=== PATIENT | female | born 1935 | race Caucasian/White ===

== ENCOUNTER 2017-05-17 10:07 | Emergency (ER) | payer MEDICARE, BC ==
[2017-05-17 10:45] VITALS: BP 81/55
--- NOTE | 2017-05-17 11:44 | UC ---
Ear Complaint HPI - HPI Summary HPI Summary: INTERMITTENT HEARING DEFICIT LEFT EAR FOR SEVERAL WEEKS. TODAY HEARING LOSS IS NOT REMITTING. FEELS LIKE SHE IS "UNDER WATER". NO PAIN. NO FEVER. NO URI SX. NOT DIZZY. - History of Current Complaint Chief Complaint: UCEar Stated Complaint: EAR COMPLAINT Time Seen by Provider: 05/17/17 11:29 Hx Obtained From: Patient Onset/Duration: Gradual Onset, Lasting Weeks, Still Present Severity Initially: Mild Severity Currently: Mild Pain Intensity: 0 Pain Scale Used: 0-10 Numeric Aggravating Factors: Nothing Alleviating Factors: Nothing Associated Signs/Symptoms: Positive: Hearing Loss. Negative: Discharge, Foreign Body Sensation, Trauma to Ear, Swelling @, URI Symptoms - Allergies/Home Medications Allergies/Adverse Reactions: Allergies Allergy/AdvReac Type Severity Reaction Status Date / Time No Known Allergies Allergy Verified 07/28/16 16:40 PMH/Surg Hx/FS Hx/Imm Hx Endocrine History: Hypothyroidism Cardiovascular History: Hypertension, Atrial Fibrillation - Surgical History Surgical History: Yes Surgery Procedure, Year, and Place: Tubal Ligation, Bilateral Cataracts surgery , Gallbladder. - Family History Known Family History: Positive: Hypertension - Social History Alcohol Use: None Substance Use Type: None Smoking Status (MU): Former Smoker - Immunization History Most Recent Influenza Vaccination: Review of Systems Constitutional: Negative ENT: Other - HEARING LOSS LEFT EAR Respiratory: Negative Cardiovascular: Negative Gastrointestinal: Negative Neurological: Negative All Other Systems Reviewed And Are Negative: Yes Physical Exam Triage Information Reviewed: Yes Appearance: Well-Appearing, No Pain Distress, Well-Nourished Vital Signs: Initial Vital Signs Temp 97.4 F 05/17/17 10:37 Pulse 69 05/17/17 10:37 Resp 18 05/17/17 10:37 BP 81/55 05/17/17 10:37 Pulse Ox 99 05/17/17 10:37 Vital Signs Reviewed: Yes Eyes: Positive: Conjunctiva Clear ENT: Positive: Pharynx normal, TMs normal, Other: - NO OBSTRUCTION IN EITHER EAC. HEARING LOSS NOTED LEFT SIDE TO FINGER RUB Neck: Positive: Supple Respiratory: Positive: No respiratory distress, No accessory muscle use Cardiovascular: Positive: Pulses Normal Abdomen Description: Positive: Soft Musculoskeletal: Positive: No Edema Neurological: Positive: Alert Psychological: Positive: Age Appropriate Behavior Skin: Negative: rashes Ear Complaint Course/Dx - Differential Dx/Diagnosis Provider Diagnoses: LEFT EAR HEARING LOSS Discharge - Discharge Plan Condition: Stable Disposition: HOME Patient Education Materials: Hearing Loss (ED) Referrals: Zaire Rowan MD [Medical Doctor] - (YOU HAVE AN APPT FOR A HEARING TEST AT 1 :15PM TOMORROW (05/18/17) FOLLOWED BY AN APPT WITH DR. ROWAN WITH ENT.) Day Caro MD [Primary Care Provider] - If Needed Additional Instructions: NO WAX, FOREIGN BODY OR OTHER OBSTRUCTION SEEN IN YOUR LEFT EAR. WE HAVE MADE AN APPT WITH ENT FOR YOU TOMORROW. PLEASE KEEP THIS APPT FOR FURTHER EVALUATION.
== END 2017-05-17 11:50 | disposition home or self-care (01) ==
LOC: UCEAST 10:07
DX: H91.92 Unspecified hearing loss, left ear (principal); I48.91 Unspecified atrial fibrillation
CPT/HCPCS: 99211; G0463

== ENCOUNTER 2017-06-08 11:36 | Inpatient (IN) | payer BC, MEDICARE ==
[2017-06-08] MEDS ORDERED: Pantoprazole IV* 40 MG IV ONE (12:54)
[2017-06-08] MEDS ORDERED: NS 0.9% 1000 ML* 1,000 ML IV SCH (13:00)
[2017-06-08 14:18] LABS: Hematocrit 24 % (35-47); Hemoglobin 7.4 g/dl (12.0-16.0); Mean Corpuscular HGB Conc 32 g/dl (31-36); Mean Corpuscular Hemoglobin 28 pg (27-31); Mean Corpuscular Volume 88 fL (80-97); Mean Platelet Volume 10 um3 (7.4-10.4); Red Blood Count 2.69 10^6/ul (4.0-5.4); Red Cell Distribution Width 14 % (10.5-15); White Blood Count 7.4 10^3/ul (3.5-10.8)
[2017-06-08 14:34] LABS: ALT 9 U/L (7-52); AST 15 U/L (13-39); Albumin 3.6 g/dL (3.2-5.2); Alkaline Phosphatase 62 U/L (34-104); Anion Gap 6 mmol/L (2-11); BUN/Creatinine Ratio 11.2 (8-20); Blood Urea Nitrogen 10 mg/dL (6-24); C Reactive Protein 4.02 mg/L (< 5.00); CO2 Carbon Dioxide 26 mmol/L (22-32); Calcium 8.9 mg/dL (8.6-10.3); Chloride 104 mmol/L (101-111); EGFR African American 78.1 (>60); EGFR Non-African American 60.7 (>60); Globulin 2.9 g/dL (2-4); Glucose 112 mg/dL (70-100); Lipase < 10 U/L (11.0-82.0); Potassium 3.8 mmol/L (3.5-5.0); Sodium 136 mmol/L (133-145); Total Protein 6.5 g/dL (6.4-8.9)
[2017-06-08] MEDS ORDERED: Phytonadione Oral Solution* 5 MG/25 ML UDC PO ONE (15:44)
--- NOTE | 2017-06-08 15:58 | ED ---
Shekhar Wright Angela, scribed for Bob Castillo MD on 06/08/17 at 1259 . GI/ HPI - HPI Summary HPI Summary: 82 y/o female presents to the ED c/o diarrhea, bloody stools, intermittent L leg pain since this morning at 8:00 AM. Pt reports she was feeling well yesterday and awoke today with diarrhea, she was on her way to [place] to visit her friend. Pt notes associated bloated abdomen but no pain. She states she has had approximately 10 bowel movements today, described as very loose black stools with bright red blood. Pt is unsure if the blood is separate from her stools. Pt denies nausea, vomiting, chest pain, SOB, fever, chills, light- headedness. Pt denies any PMHx of GI bleed but endorses PMHx of blood clot in lungs and heart burn. - History of Current Complaint Chief Complaint: EDGIBleed Time Seen by Provider: 06/08/17 12:42 Stated Complaint: DIARRHEA,POSS VAG BLEEDING Hx Obtained From: Patient Onset/Duration: Started Hours Ago Timing: Constant Vaginal Bleeding Description: Bright Red Pain Intensity: 6 Associated Signs and Symptoms: Positive: Bright Red Blood w/Stool, Blood w/Stool , Diarrhea, Other: - Leg pain. Negative: Nausea, Vomiting, Fever, Lightheadedness Aggravating Factor(s): Nothing Alleviating Factor(s): Nothing - Allergy/Home Medications Allergies/Adverse Reactions: Allergies Allergy/AdvReac Type Severity Reaction Status Date / Time No Known Allergies Allergy Verified 07/28/16 16:40 PMH/Surg Hx/FS Hx/Imm Hx Endocrine/Hematology History: Reports: Hx Thyroid Disease Denies: Hx Diabetes Cardiovascular History: Reports: Hx Hypertension - on meds Denies: Hx Congestive Heart Failure Respiratory History: Reports: Hx Pulmonary Embolism Denies: Hx Asthma, Hx Chronic Obstructive Pulmonary Disease (COPD) GI History: Denies: Hx Ulcer Musculoskeletal History: Denies: Hx Scoliosis Neurological History: Denies: Hx Headaches - Surgical History Surgery Procedure, Year, and Place: Tubal Ligation, Bilateral Cataracts surgery , Gallbladder. Infectious Disease History: No Infectious Disease History: Denies: Hx Hepatitis, Hx Human Immunodeficiency Virus (HIV), History Other Infectious Disease, Traveled Outside the [place] in Last 30 Days - Family History Known Family History: Positive: Hypertension - Social History Alcohol Use: None Hx Substance Use: No Substance Use Type: Reports: None Hx Tobacco Use: Yes Smoking Status (MU): Former Smoker Review of Systems Negative: Fever, Chills Negative: Chest Pain Negative: Shortness Of Breath Positive: Abdominal Pain - Bloating of abdomen, Diarrhea, Other - Bloody stools , dark loose stools. Negative: Vomiting, Nausea Neurological: Other - NEGATIVE: light-headedness All Other Systems Reviewed And Are Negative: Yes Physical Exam - Summary Physical Exam Summary: General: well-appearing, no pain distress Skin: warm, color reflects adequate perfusion, dry Head: normal Eyes: EOMI, EAGLE ENT: normal Neck: supple, nontender Respiratory: CTA, breath sounds present Cardiovascular: RRR Abdomen: soft, nontender Bowel: present Musculoskeletal: normal, strength/ROM intact Neurological: normal, sensory/motor intact, A&O x3 Psychological: affect/mood appropriate Triage Information Reviewed: Yes Vital Signs On Initial Exam: Initial Vitals Temp Pulse Resp BP Pulse Ox 97.4 F 76 17 129/99 96 06/08/17 12:05 06/08/17 12:05 06/08/17 12:05 06/08/17 12:05 06/08/17 12:05 Vital Signs Reviewed: Yes - Alirio Coma Scale Coma Scale Total: 15 Diagnostics - Vital Signs Vital Signs Temp Pulse Resp BP Pulse Ox 06/08/17 12:23 71 97 06/08/17 12:17 98.6 F 73 22 142/65 97 06/08/17 12:05 97.4 F 76 17 129/99 96 - Laboratory Lab Results: Lab Results 06/08/17 06/08/17 06/08/17 Range/Units 13:22 13:22 13:22 WBC 7.4 (3.5-10.8) 10^3/ul RBC 2.69 L (4.0-5.4) 10^6/ul Hgb 7.4 L (12.0-16.0) g/dl Hct 24 L (35-47) % MCV 88 (80-97) fL MCH 28 (27-31) pg MCHC 32 (31-36) g/dl RDW 14 (10.5-15) % Plt Count 238 (150-450) 10^3/ul MPV 10 (7.4-10.4) um3 Neut % (Auto) 66.6 (38-83) % Lymph % (Auto) 22.5 L (25-47) % Hays % (Auto) 8.1 (1-9) % Eos % (Auto) 1.5 (0-6) % Baso % (Auto) 1.3 (0-2) % Absolute Neuts (auto) 4.9 (1.5-7.7) 10^3/ul Absolute Lymphs (auto) 1.7 (1.0-4.8) 10^3/ul Absolute Monos (auto) 0.6 (0-0.8) 10^3/ul Absolute Eos (auto) 0.1 (0-0.6) 10^3/ul Absolute Basos (auto) 0.1 (0-0.2) 10^3/ul Absolute Nucleated RBC 0 10^3/ul Nucleated RBC % 0 Sodium 136 (133-145) mmol/L Potassium 3.8 (3.5-5.0) mmol/L Chloride 104 (101-111) mmol/L Carbon Dioxide 26 (22-32) mmol/L Anion Gap 6 (2-11) mmol/L BUN 10 (6-24) mg/dL Creatinine 0.89 (0.51-0.95) mg/dL Est GFR ( Amer) 78.1 (>60) Est GFR (Non-Af Amer) 60.7 (>60) BUN/Creatinine Ratio 11.2 (8-20) Glucose 112 H (70-100) mg/dL Lactic Acid 1.0 (0.5-2.0) mmol/L Calcium 8.9 (8.6-10.3) mg/dL Total Bilirubin 0.30 (0.2-1.0) mg/dL AST 15 (13-39) U/L ALT 9 (7-52) U/L Alkaline Phosphatase 62 (34-104) U/L C-Reactive Protein 4.02 (< 5.00) mg/L B-Natriuretic Peptide ( - 100) pg/mL Total Protein 6.5 (6.4-8.9) g/dL Albumin 3.6 (3.2-5.2) g/dL Globulin 2.9 (2-4) g/dL Albumin/Globulin Ratio 1.2 (1-3) Lipase < 10 L (11.0-82.0) U/L 06/08/17 Range/Units 13:22 WBC (3.5-10.8) 10^3/ul RBC (4.0-5.4) 10^6/ul Hgb (12.0-16.0) g/dl Hct (35-47) % MCV (80-97) fL MCH (27-31) pg MCHC (31-36) g/dl RDW (10.5-15) % Plt Count (150-450) 10^3/ul MPV (7.4-10.4) um3 Neut % (Auto) (38-83) % Lymph % (Auto) (25-47) % Hays % (Auto) (1-9) % Eos % (Auto) (0-6) % Baso % (Auto) (0-2) % Absolute Neuts (auto) (1.5-7.7) 10^3/ul Absolute Lymphs (auto) (1.0-4.8) 10^3/ul Absolute Monos (auto) (0-0.8) 10^3/ul Absolute Eos (auto) (0-0.6) 10^3/ul Absolute Basos (auto) (0-0.2) 10^3/ul Absolute Nucleated RBC 10^3/ul Nucleated RBC % Sodium (133-145) mmol/L Potassium (3.5-5.0) mmol/L Chloride (101-111) mmol/L Carbon Dioxide (22-32) mmol/L Anion Gap (2-11) mmol/L BUN (6-24) mg/dL Creatinine (0.51-0.95) mg/dL Est GFR ( Amer) (>60) Est GFR (Non-Af Amer) (>60) BUN/Creatinine Ratio (8-20) Glucose (70-100) mg/dL Lactic Acid (0.5-2.0) mmol/L Calcium (8.6-10.3) mg/dL Total Bilirubin (0.2-1.0) mg/dL AST (13-39) U/L ALT (7-52) U/L Alkaline Phosphatase (34-104) U/L C-Reactive Protein (< 5.00) mg/L B-Natriuretic Peptide 165 H ( - 100) pg/mL Total Protein (6.4-8.9) g/dL Albumin (3.2-5.2) g/dL Globulin (2-4) g/dL Albumin/Globulin Ratio (1-3) Lipase (11.0-82.0) U/L Result Diagrams: 06/08/17 13:22 06/08/17 13:22 Lab Statement: Any lab studies that have been ordered have been reviewed, and results considered in the medical decision making process. GIGU Course/Dx - Course Course Of Treatment: ADMIT HOSPITALIST STABLE. NO CRITICAL CARE TIME. - Diagnoses Provider Diagnoses: GI bleed, Hypercoagulable state Discharge - Discharge Plan Condition: Stable Disposition: ADMITTED TO [facility] The documentation as recorded by the Shekhar wagner Angela accurately reflects the service I personally performed and the decisions made by , Bob Castillo MD.
[2017-06-08] MEDS: NS 0.9% 1000 ML* 1,000 ML IV SCH (16:37)
[2017-06-08] MEDS: Metoprolol Tartrate TAB* 50 mg PO SCH (20:08)
[2017-06-08] MEDS: busPIRone TAB* 15 MG PO SCH (20:08)
--- NOTE | 2017-06-08 21:08 | HP ---
CC: Dr. Caro * [facility] MEDICINE HISTORY AND PHYSICAL: DATE OF ADMISSION: 06/08/17 PRIMARY CARE PHYSICIAN: Dr. Caro. ATTENDING PHYSICIAN: Pepe Martell MD * (dictation provided by Nina Curran NP ) CHIEF COMPLAINT: Blood per rectum. HISTORY OF PRESENT ILLNESS: Ms. Fernández is an 82-year-old female with a past medical history of pulmonary embolism 10 years ago on chronic Coumadin therapy, hypertension, and hypothyroidism who presents to the hospital with concern for dark stool and bright red blood per rectum today. Ms. Fernández states that she had one episode last week where she had dark stool with some blood. She states that there was no further bleeding or dark stool noted since then and she felt that it had resolved; however, today she again had dark stool with blood and grew concerned enough to come to the emergency room for evaluation. She also reports some low back pain that is intermittent, but that is a chronic issue. She has also had some discomfort in her left leg but this is also intermittent. She denies any chest pain, shortness of breath, cough. She has had no nausea , vomiting or abdominal pain. She has been tolerating oral intake well. She denies fever. Ms. Fernández stats that she had a PE that was thought to be unprovoked approximately 10 years ago. She reports being seen in consultation by Dr. Bolanos and was told to be on chronic anticoagulation for life. Patient also reports having a colonoscopy and per her report, the colonoscopy was normal. In the emergency room, Ms. Fernández had labs which show a hemoglobin of 7.4 which is down from her last known hemoglobin of 12 back in 2016. She has an INR of 3.08. The remainder of her labs are unremarkable. Her vital signs are stable. She is not tachycardic, although I will note she is on a beta-jagruti. Her blood pressure systolically is running in the 120s. She is denying any lightheadedness or dizziness. PAST MEDICAL HISTORY: 1. History of PE 10 years ago on chronic Coumadin therapy. 2. EGD 2008 due to anemia, found large healing gastric ulcer. 3. EGD and colonscopy 2009 due to anemia, no source of anemia found. 4. Hypertension. 5. Hypothyroidism. 6. Chronic back pain. ALLERGIES: No known drug allergies. FAMILY HISTORY: Reviewed and noncontributory. SOCIAL HISTORY: The patient smoked cigarettes decades ago. She denies any alcohol or drug use. She states that her daughter, Natasha will be the healthcare proxy. REVIEW OF SYSTEMS: A 14-point review of systems was completed with Ms. Fernández and all those not mentioned above were negative. PHYSICAL EXAMINATION GENERAL: Ms. Mandi Fernández is lying in the bed. She is in no acute distress. VITAL SIGNS: Temperature 98.6, heart rate 70, respiratory rate 22, O2 saturation 98% on room air, blood pressure 126/109. LUNGS: Clear to auscultation bilaterally, with no accessory muscle use and good aeration. HEART: S1 and S2. No murmur, gallop and regular. ABDOMEN: Soft, nontender with bowel sounds positive x4. EXTREMITIES: No cyanosis or edema. NEUROLOGIC: She is alert, she is oriented x3. She moves all extremities equally. There is no facial asymmetry or focal weakness. Extraocular movements are intact. SKIN: Intact. LABORATORY DATA: WBC is 7.4, hemoglobin 7.4, hematocrit 24, platelet count 238 ,000. Sodium 136, potassium 3.8, chloride 104, serum bicarbonate 26, BUN 10, creatinine 0.89, glucose 112. INR is 3.08. ASSESSMENT: Ms. Fernández is an 82-year-old female with past medical history of pulmonary embolism approximately 10 years ago on chronic Coumadin therapy as well as aspirin, who presents today to the hospital with concern for GI bleeding. She reports both dark black stool and blood in the stool. Our plans are for inpatient admission with expected length of stay to be greater than 2 days for the followin. GI bleed: The patient is evidencing anemia with a hemoglobin of 7.4. Plan to transfuse 2 units packed red blood cells now. We will recheck a hemoglobin later this evening and in the morning. Patient is hemodynamically stable at this point with no evidence of tachycardia or hypotension. Likewise, no evidence of lightheadedness or dizziness. She reports a history of colonoscopy that was negative some years ago. She will be seen in consultation by Dr. March from Gastroenterology. 2. History of pulmonary embolism. Patient will need to go off her Coumadin at this point. She will likely to need to follow up with her primary care physician who will need collaborate with Hematology and GI regarding whether or not the risk would outweigh the benefits of continuing Coumadin therapy alf in this patient with GI bleeding. I did attempt to obtain records from Dr. Bolanos's outpatient visit but it was unavailable as it was from 10 years ago. 3. Hypertension. Plan to continue metoprolol, but hold furosemide and amlodipine while she is acutely bleeding. 4. Chronic pain. Continue hydrocodone. 5. DVT prophylaxis with SCDs in this patient with acute anemia. 6. Code status is DNR. TIME SPENT: Approximately 60 minutes were spent on the admission of this patient, more than half that time spent with the patient at bedside reviewing the events leading up to this hospitalization, performing the physical examination and reviewing the plan of care. NINA CURRAN, CHAN [id number]/CPS #: [id number] GUILLERMINA
--- NOTE | 2017-06-08 22:47 | CONS ---
GASTROENTEROLOGY CONSULTATION DATE: CONSULTING PRACTITIONERS: Nina Curran NP; Day Caro MD. REASON FOR CONSULTATION: Abrupt rectal bleeding. HISTORY: This 82-year-old woman on warfarin since 2008 when she had a pulmonary embolism has been feeling generally her usual self in recent weeks. She did go about her usual activities yesterday. This morning, she passed copious amount of bright red blood. She came to the emergency room and was found to have a hemoglobin of 7.4 compared to June 2016 when she was 12.1, which has been her consistent baseline over 10 values in the last 7 years. Her INR was 3.08, BUN 10, creatinine 0.89, albumin 3.6. Since admission 4 or 5 hours ago, she has not had any more bowel movements. Her warfarin has been held. She has been admitted, placed on a once daily shot of pantoprazole, maintained on her cardiac meds and is being observed off warfarin. She has never had anything like this before. She has no history of [place] or valvular disease, though atrial fibrillation is listed in the last couple of years. She has had a colonoscopy around 2005 or 2006 in [place] that was said to show diverticulosis and then Dr. Arredondo found the same results in May 2010. She has a couple of upper endoscopies done as she was anemic in 2008 and also in 2009, just showed scarring in the antrum from an old ulcer. She had been taking ibuprofen, she no longer does. PAST MEDICAL HISTORY: 1. Substantial obesity. 2. Hypothyroidism. 3. Irritable bowel syndrome - she and her daughter spontaneously described. 4. Constipation, skipping a day or two, sporadic use of MiraLAX and at other times "going the other way." 5. Hypertension. 6. Atrial fibrillation. 7. History of pulmonary embolism - said to be unprovoked though they cannot remember the details. 8. Status post cholecystectomy. 9. Status post tubal ligation. 10. Diverticulosis - seen on 2 prior colonoscopies. SOCIAL HISTORY: She lives right next to her daughter. She is . 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 Her granddaughter is a nurse in the emergency room. REVIEW OF SYSTEMS: No history of GERD, dysphagia, vomiting blood, hepatitis, TB , hemoptysis, CVA, seizures or renal disease. EXAM: She is in bed, slightly pale, but comfortable and in good spirits in no distress. Her daughter is with her. HEENT exam is unremarkable. Vital signs show pulse of 78, blood pressure of 158/64. She has no adenopathy. Her lungs are clear. Her heart sounds are irregular. The abdomen is obese, symmetric with normal bowel sounds. Soft. Rectal: Deferred given the clear-cut history. Extremities show no pitting edema. Neurologic shows normal orientation and cranial nerves. Gait was not tested given the acute GI bleed. IMPRESSION: This 82-year-old woman on chronic warfarin, currently in good control, developed an abrupt GI bleed, clinically seen most likely lower GI bleed, and a BUN of 10 would tend to confirm that. She has had two prior colonoscopies just showing a single small colon polyp and diverticulosis; and, with the nature of this bleed, it seems very likely that this is a diverticular bleed. She could be watched off warfarin 10 to 14 days and then if she reverts to heme negative status with no further signs of any problem, no further workup may be necessary. At this time, the relative priority of atrial fibrillation for warfarin would seem to exceed the pulmonary embolism. [id number]/[facility] #: [id number] [facility]
[2017-06-09 03:41] LABS: Hematocrit 29 % (35-47); Hemoglobin 9.3 g/dl (12.0-16.0); Mean Corpuscular HGB Conc 32 g/dl (31-36); Mean Corpuscular Hemoglobin 27 pg (27-31); Mean Corpuscular Volume 86 fL (80-97); Mean Platelet Volume 9 um3 (7.4-10.4); Red Cell Distribution Width 15 % (10.5-15)
[2017-06-09] MEDS: Levothyroxine TAB* 100 MCG TAB PO SCH (05:54)
[2017-06-09] MEDS: Pantoprazole IV* 40 MG IV SCH (08:59)
[2017-06-09] MEDS: busPIRone TAB* 15 MG PO SCH ×2 (09:00→20:50)
[2017-06-09] MEDS: Metoprolol Tartrate TAB* 50 mg PO SCH ×2 (09:00→20:49)
[2017-06-09] MEDS: Potassium Chlor TAB* 10 MEQ TAB.ER PO SCH (09:00)
[2017-06-09] MEDS: NS 0.9% 1000 ML* 1,000 ML IV SCH (09:06)
[2017-06-09 11:55] LABS: Hematocrit 31 % (35-47); Hemoglobin 9.8 g/dl (12.0-16.0)
[2017-06-09 18:47] LABS: Hematocrit 32 % (35-47)
--- NOTE | 2017-06-09 18:51 | PN ---
Subjective Date of Service: 06/09/17 Interval History: This is an 82 yo female with HTN, hypothyroidism chronic back pain and remote PE for which she has been chronically anticoagulated who presented with c/o BRBPR. She received 2U PRBCs and 5mg vitamin with further doses of her Coumadin held. She was seen by GI who suggested that her bleeding was likely diverticular and suggested observation for self-resolution with no plans for endoscopy at this time. Patient reports no further bleeding overnight, but she has not had another BM since admission. She denies abd pain, n/v. Objective Active Medications: Buspirone HCl (Buspar Tab *) 15 mg PO BID [facility] Last Admin: 06/09/17 09:00 Dose: 15 mg Sodium Chloride (Ns 0.9% 1000 Ml*) 1,000 mls @ 75 mls/hr IV PER RATE [facility] Last Admin: 06/09/17 09:06 Dose: 75 mls/hr Levothyroxine Sodium (Synthroid Tab*) 100 mcg PO DAILY@0600 [facility] Last Admin: 06/09/17 05:54 Dose: 100 mcg Metoprolol Tartrate (Lopressor Tab*) 50 mg PO BID [facility] Last Admin: 06/09/17 09:00 Dose: 50 mg Pantoprazole Sodium (Protonix Iv*) 40 mg IV DAILY [facility] Last Admin: 06/09/17 08:59 Dose: 40 mg Potassium Chloride (Klor Con Er Tab*) 10 meq PO DAILY [facility] Last Admin: 06/09/17 09:00 Dose: 10 meq Vital Signs: Temp Pulse Resp BP Pulse Ox 97.7 F 66 16 146/57 97 06/09/17 16:20 06/09/17 16:20 06/09/17 16:20 06/09/17 16:20 06/09/17 16:20 Oxygen Devices in Use Now: None Appearance: Well appearing elderly female who appears younger than stated age in NAD Respiratory: Symmetrical Chest Expansion and Respiratory Effort, Clear to Auscultation Cardiovascular: NL Sounds; No Murmurs; No JVD, RRR Abdominal: NL Sounds; No Tenderness; No Distention Extremities: No Edema Neurological: Alert and Oriented x 3 Result Diagrams: 06/09/17 11:38 06/08/17 13:22 Additional Lab and Data: . Assess/Plan/Problems-Billing Assessment: This is an 82 yo female with HTN, hypothyroidism, chronic back pain and remote h /o PE for which she has been chronically anticoagulated who presented with lower GI bleed. - Patient Problems (1) GI bleed Comment: Lower GI bleed H&H stable after 2U PRBCs No further bleeding Appreciate GI consult Plan to observe overnight with repeat H&H in am (2) HTN (hypertension) Comment: Normotensive Cont metoprolol but amlodipine has been held (3) Hypothyroidism Comment: Cont levothyroxine (4) Hx of pulmonary embolus Comment: Chronically anticoagulated with Coumadin, no known clotting disorder Coumadin has been held and partially reversed with oral vit K She can discuss whether this should be resumed in the future with her PCP, but see no indication for this at this time (5) Full code status (6) DVT prophylaxis Comment: SCDs chemical prophylaxis contraindicated in the setting of bleeding Status and Disposition: Inpatient. Anticipate dc tomorrow
[2017-06-09] MEDS ORDERED: Acetaminophen TAB* 325 MG PO PRN (19:36)
[2017-06-10] MEDS: NS 0.9% 1000 ML* 1,000 ML IV SCH (04:34)
[2017-06-10] MEDS: Levothyroxine TAB* 100 MCG TAB PO SCH (05:29)
[2017-06-10 06:09] LABS: Hematocrit 29 % (35-47); Mean Corpuscular HGB Conc 31 g/dl (31-36); Mean Corpuscular Hemoglobin 27 pg (27-31); Mean Corpuscular Volume 87 fL (80-97); Mean Platelet Volume 9 um3 (7.4-10.4); Red Cell Distribution Width 15 % (10.5-15); White Blood Count 6.5 10^3/ul (3.5-10.8)
[2017-06-10 07:55] VITALS: BP 150/66
[2017-06-10] MEDS: Potassium Chlor TAB* 10 MEQ TAB.ER PO SCH (08:47)
[2017-06-10] MEDS: Pantoprazole IV* 40 MG IV SCH (08:47)
[2017-06-10] MEDS: busPIRone TAB* 15 MG PO SCH (08:47)
[2017-06-10] MEDS: Metoprolol Tartrate TAB* 50 mg PO SCH (08:48)
--- NOTE | 2017-06-11 04:02 | DS ---
CC: Dr. Day Caro; Dr. Fredy March. * DISCHARGE SUMMARY: DATE OF ADMISSION: 06/08/17 DATE OF DISCHARGE: 06/10/17 PRIMARY CARE PROVIDER: Dr. Day Caro. CONSULTING PLACEMENT COORDINATOR: Dr. Fredy March. DISCHARGING PROVIDER: VICKI Jimenez. SUPERVISING PHYSICIAN: Dr. Edgar Mcqueen * (DICTATED BY VICKI JIMENEZ) PRIMARY DISCHARGE DIAGNOSES: 1. Lower gastrointestinal bleed. 2. Acute blood loss anemia, status post transfusion of 1 unit of packed red blood cells. SECONDARY DISCHARGE DIAGNOSES: 1. Hypertension. 2. Hypothyroidism. 3. 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 DISCHARGE MEDICATIONS: 1. Aspirin 81 mg p.o. daily. 2. Lasix 20 mg p.o. daily. 3. Levothyroxine 100 mcg p.o. daily. 4. Metoprolol tartrate 50 mg p.o. twice daily. 5. Potassium chloride 10 mEq p.o. daily. 6. Amlodipine 2.5 mg p.o. daily. 7. BuSpar 15 mg p.o. twice daily. Medication Changes: 1. Discontinue Coumadin. HOSPITAL IMAGING: None. HOSPITAL COURSE: This is a very pleasant 82-year-old female with a history of hypertension, hypothyroidism, and a remote history of PE for which she has been anticoagulated with Coumadin for the last 10 years or so. She presented to the emergency department with complaints of dark stool as well as bright red blood per rectum. She denied any associated abdominal pain. Her hemoglobin at the time of admission was 7.4 g/dL, down from a baseline of approximately 12; last measured almost a year ago. The patient received transfusion of 2 units of packed red blood cells to which she responded well and her hemoglobin remained fairly stable throughout the remainder of her hospital stay. The patient was evaluated by drama therapist, Dr. March, who suggested that her GI bleeding was likely lower and suspected it to be diverticular. She received just 5 mg of oral vitamin K and her Coumadin was held. She was observed for signs of further bleeding, but as mentioned before, her hemoglobin remained fairly stable and she did have an additional bowel movement during her hospital stay, which was not grossly bloody. For these reasons, a repeat colonoscopy was deferred at this time. Unsure of what the patient's history is with clots. She recalls only one prior PE and denies any know clotting disorder. It may be that the patient does not need to resume anticoagulation, but strongly encouraged that she has this discussion with her primary care provider. Regardless, the patient needs to be off of her Coumadin for approximately 10 to 14 days and if a decision to resume anticoagulation is made, to recheck a stool for occult blood, and depending on when her last colonoscopy was, consider a repeat colonoscopy before resuming anticoagulation and at that point she should be closely monitored for signs of additional bleeding. DISPOSITION AND FOLLOWUP PLAN: The patient is being discharged to home. Only medication change is discontinuing Coumadin as discussed above. Followup should be with her primary care provider to discuss further plans for anticoagulation. Consider followup colonoscopy depending on timing of her last one and whether there are signs of additional bleeding after leaving the hospital. VICKI JIMENEZ [id number]/[facility] #: [id number] GUILLERMINA
== END 2017-06-10 12:15 | disposition home or self-care (01) | DRG 378 ==
LOC: ED 11:36 → MED 15:29
PROVIDERS: ADMIT Internal Medicine; ATTEND Hospitalist
PROC: 30233N1 Transfusion of Nonautologous Red Blood Cells into Peripheral Vein, Percutaneous Approach (ICD-10-PCS; principal; 2017-06-08)
DX: K57.31 Diverticulosis of large intestine without perforation or abscess with bleeding (principal); D62 Acute posthemorrhagic anemia; I48.91 Unspecified atrial fibrillation; I10 Essential (primary) hypertension; M54.9 Dorsalgia, unspecified; E66.9 Obesity, unspecified; E03.9 Hypothyroidism, unspecified; Z86.711 Personal history of pulmonary embolism; Z87.891 Personal history of nicotine dependence; Z79.01 Long term (current) use of anticoagulants; Z79.899 Other long term (current) drug therapy; Z68.32 Body mass index [BMI] 32.0-32.9, adult
CPT/HCPCS: 36415; 80053; 82270; 82272; 83605; 83630; 83690; 83880; 85014; 85018; 85025; 85027; 85610; 85730; 86140; 86850; 86900; 86901; 86922; 87045; 87046; 87328; 87329; 87899; A9270-GY; P9040

== ENCOUNTER 2017-11-27 18:12 | Emergency (ER) | payer MEDICARE ==
--- OUTSIDE RECORDS SUMMARY | 2017-11-27 18:34 | XMS REPORT ---
:1935 External Reference #:[id number] Author Organization [facility] Address [address] [address] Phone [phone] Care Team Providers Name Role Phone Day Caro MD Primary Care Physician Unavailable Payers Type Date Identification Numbers Payment Provider Subscriber Medicare Primary Effective: Policy Number: Medicare Mandi Fernández 2000 [id number] Expires: 2014 PayID: [id number] [address] [place] [address] Medigap Part B Effective: 2008 Policy Number: [id number] Medicaid Mandi Fernández Expires: 2014 Group Name: 1 1 [address] PayID: [id number] [place] [address] Health Maintenance Effective: Policy Number: Medicare Blue Mandi Guillen (HMO) 10/30/2014 [id number] [facility] Pradeep Group Number: [id number] [address] [address] PayID: [id number] [place] [address] Problems Date Description Provider Status Onset: 11/08/2017 Tibialis tendinitis Marvin Still M.D. Active Onset: 01/22/2016 Localized, primary osteoarthritis Fide Medina M.D. Active Family History Date Family Member(s) Problem(s) Comments General Heart Disease General Diabetes Social History Type Date Description Comments Lives With Alone ETOH Use Denies alcohol use Smoking Patient has never smoked Exercise Type/Frequency Does not exercise Allergies, Adverse Reactions, Alerts Date Description Reaction Status Severity Comments 09/07/2015 NKDA active Medications Medication Date Status Form Strength Qnty SIG Indications Ordering Provider 4 Pronged Cane 01/21/ Active use for M17.12 Fide 2015 ambulation Светлана Medina Buspirone HCL / Active 15mg Unknown 0000 Metoprolol / Active 50mg one tab bid Unknown Tartrate 0000 Magnesium / Active Unknown Carbonate 0000 Klor-Con / Active 10mcg Unknown 0000 Amlodipine / Active 2.5mg Unknown Besylate 0000 Furosemide / Active 20mg Unknown 0000 Levothyroxine / Active 100mcg Unknown Sodium 0000 Proair HFA / Active Unknown 0000 Vitamin C / Active Unknown 0000 Vitamin D / Active daily Unknown Omeprazole / Hx 20mg Unknown 2017 Warfarin Sodium / Hx 4mg Unknown 2017 Vitamin / Hx Unknown B-Complex 2017 Aspirin Ec Low / Hx Unknown Dose 2017 Vitamin D High / Hx Unknown Potency 2015 Hydrocodone-Acet / Hx Tablets 5-325mg 1 by mouth Unknown aminophen 0000 - every 4-6 10/30/ hours prn. 2018 Vital Signs Date Vital Result Comment 11/08/2017 Height 64 inches 5'4" Weight 192.00 lb w/ shoes Heart Rate 74 /min reg BP Systolic Sitting 120 mmHg Rue, lg cuff BP Diastolic Sitting 80 mmHg Rue, lg cuff Respiratory Rate 16 /min Pain Level 4 left knee, right ankle BMI (Body Mass Index) 33.0 kg/m2 09/29/2016 Height 64 inches 5'4" Weight 200.00 lb per pt Respiratory Rate 20 /min Pain Level 0 BMI (Body Mass Index) 34.3 kg/m2 08/12/2016 Height 64 inches 5'4" Weight 200.00 lb BP Systolic 128 mmHg BP Diastolic 80 mmHg Pain Level 5 BMI (Body Mass Index) 34.3 kg/m2 01/22/2016 Height 64 inches 5'4" Weight 201.00 lb Heart Rate 77 /min BP Systolic 143 mmHg BP Diastolic 73 mmHg BMI (Body Mass Index) 34.5 kg/m2 10/19/2015 Height 63 inches 5'3" Weight 201.00 lb Pain Level 0 BMI (Body Mass Index) 35.6 kg/m2 09/28/2015 Height 63 inches 5'3" Weight 201.00 lb Pain Level 0 generally BMI (Body Mass Index) 35.6 kg/m2 09/14/2015 Height 63 inches 5'3" Weight 201.00 lb Pain Level 5 BMI (Body Mass Index) 35.6 kg/m2 09/07/2015 Height 63 inches 5'3" Weight 201.00 lb Heart Rate 73 /min BP Systolic 148 mmHg BP Diastolic 71 mmHg BMI (Body Mass Index) 35.6 kg/m2 Results Description No Information Procedures Date CPT Code Description Status 09/28/2015 26731 Short Arm Cast Application Completed 09/14/2015 64594 Short Arm Cast Application Completed 09/08/2015 68318 Short Arm Cast Application Completed 09/07/2015 06550 CLST TRMT Distal Radial FX Completed Encounters Type Date Location Provider CPT E/M Dx Office Visit 06/10/2017 [facility] ,tarik Almeida [address] K92.2 8:14a Hospitalists VICKI Briseno D50.0 Z86.711 I10 Office Visit 06/09/2017 8:13a [place] Jakob Briseno [address] K92.2 Assoc,tarik COHEN Hospitalists D50.0 Z86.711 I10 Office Visit 06/08/2017 8:12a [facility] tarik Carlin N.P. [address] K92.2 Hospitalists D50.0 Z86.711 I10 Office Visit 09/29/2016 11:15a [facility] [address] M76.821 C.MTroyATroy Sotomayor Office Visit 08/12/2016 3:30p [facility] [address] M76.821 C.M.ATroy Sotomayor Office Visit 01/22/2016 11:00a [facility] Med[facility] M.D. 69393 M17.12 C.M.ATroy M25.562 M25.571 M76.821 Office Visit 03/06/2010 2:00a [facility] [address] 287.5 Ambar Sotomayor 415.19 Office Visit 03/05/2010 1:30a [facility]tarik Isaacs [address] 285.9 Hospitalists MJosé Luis 287.5 Office Visit 03/04/2010 2:00a [facility], Silviano Isaacs, [address] 285.9 Hospitalists MJosé Luis Office Visit 03/03/2010 12:15a [facility], Solange Lewis, [address]644 577.0 Hospitalists MJosé Luis 574.20 Plan of Care Future Appointment(s):01/03/2018 8:00 am - Marvin Still M.D. at [facility].11/08/2017 - Marvin Still M.D.M17.12 Unilateral primary osteoarthritis, left kneeNew Therapy:Physical OqpgeleA19.821 Posterior tibial tendinitis, right legFollow up:6 to 8 weeks
--- NOTE | 2017-11-27 20:23 | ED ---
Neurological HPI - HPI Summary HPI Summary: 82F presents with numbness in bilateral legs and arms today. Today she went to her chirproctor and she had her back and leg manipulated. She then sat in a chair and took a nap and woke up with the bilateral numbness in arms and legs. she then went back to her chiropractor and had her back manipulated again. She denies any weakness. She states the numbness is equal. She denies any loss of motor strength. She is able to ambulate. This has never happened before. She denies any history of numbness. She has her back manipulated multiple times before. She denies any slurred speech. She denies any difficulty finding words. She denies any back pain and neck pain. She denies any loss of bowel or bladder. She denies any saddle anaesthesia. She denies any numbness in her torso. She has a history of RA. She later states that is was a different manipulation performed today. She denies any chest pain or SOB. She denies any fever. She denies any recent illness. She denies any abdominal pain. She denies any headache. - History of Current Complaint Chief Complaint: EDExtremityLower Stated Complaint: FEET/ARM NUMBNESS Time Seen by Provider: 11/27/17 19:54 Pain Intensity: 0 - Additional Pertinent History Primary Care Physician: BONNY - Allergy/Home Medications Allergies/Adverse Reactions: Allergies Allergy/AdvReac Type Severity Reaction Status Date / Time No Known Allergies Allergy Verified 07/28/16 16:40 PMH/Surg Hx/FS Hx/Imm Hx Endocrine/Hematology History: Reports: Hx Thyroid Disease Denies: Hx Diabetes Cardiovascular History: Reports: Hx Hypertension - on meds Denies: Hx Congestive Heart Failure Respiratory History: Reports: Hx Pulmonary Embolism Denies: Hx Asthma, Hx Chronic Obstructive Pulmonary Disease (COPD) GI History: Denies: Hx Ulcer Musculoskeletal History: Reports: Hx Arthritis, Hx Rheumatoid Arthritis, Hx Back Problems Denies: Hx Scoliosis Sensory History: Denies: Hx Contacts or Glasses, Hx Hearing Aid Opthamlomology History: Denies: Hx Contacts or Glasses Neurological History: Denies: Hx Headaches - Surgical History Surgery Procedure, Year, and Place: Tubal Ligation, Bilateral Cataracts surgery , Gallbladder. Infectious Disease History: No Infectious Disease History: Denies: Hx Hepatitis, Hx Human Immunodeficiency Virus (HIV), History Other Infectious Disease, Traveled Outside the [place] in Last 30 Days - Family History Known Family History: Positive: Hypertension - Social History Alcohol Use: None Hx Substance Use: No Substance Use Type: Reports: None Hx Tobacco Use: Yes Smoking Status (MU): Former Smoker Review of Systems Negative: Fever Negative: Chest Pain Negative: Shortness Of Breath Positive: Paresthesia - bilateral upper and lower extremities All Other Systems Reviewed And Are Negative: Yes Physical Exam Triage Information Reviewed: Yes Vital Signs On Initial Exam: Initial Vitals Temp Pulse Resp BP Pulse Ox 97.8 F 83 18 151/124 96 11/27/17 18:24 11/27/17 18:24 11/27/17 18:24 11/27/17 18:24 11/27/17 18:24 Vital Signs Reviewed: Yes Appearance: Positive: Well-Appearing Skin: Positive: Warm, Dry Head/Face: Positive: Normal Head/Face Inspection Eyes: Positive: Normal, EOMI, EAGLE, Conjunctiva Clear ENT: Positive: Normal ENT inspection, Pharynx normal, TMs normal Neck: Positive: Other: - nontender neck Respiratory/Lung Sounds: Positive: Clear to Auscultation, Breath Sounds Present Cardiovascular: Positive: Normal, RRR Abdomen Description: Positive: Nontender, Soft Bowel Sounds: Positive: Present Musculoskeletal: Positive: Strength/ROM Intact - back, Other - neg SLR, nontender back, good pulses all extremity Neurological: Positive: Alert, Oriented to Person Place, Time, CN Intact II-III , Reflexes Intact - patella, biceps, ankle, Finger to Nose, Other - with soft vs dull sensation has decreased sensation bilteral thighs and foreams especially. normal sensation face and torso. Has decreased vibration sensation in bilateral feet and knees with tunning fork normal in upper extremity.. Negative: Babinski Bilateral - ne Psychiatric: Positive: Normal - [place] Coma Scale Best Eye Response: 4 - Spontaneous Best Motor Response: 6 - Obeys Commands Best Verbal Response: 5 - Oriented Coma Scale Total: 15 Diagnostics - Vital Signs Vital Signs Temp Pulse Resp BP Pulse Ox 11/27/17 20:10 83 16 163/79 97 11/27/17 18:24 97.8 F 83 18 151/124 96 - Laboratory Result Diagrams: 11/27/17 20:40 11/27/17 20:40 Lab Statement: Any lab studies that have been ordered have been reviewed, and results considered in the medical decision making process. - Radiology chest Xray Interpretation: Positive (See Comments) - IMPRESSION: 1. FINDINGS SUGGESTIVE OF COPD, NO EVIDENCE FOR ACUTE FINDING. 2. 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 Radiology Interpretation Completed By: Radiologist - CT brain CT Interpretation: No Acute Changes CT Interpretation Completed By: Radiologist Course/Dx - Course Course Of Treatment: 82F presents with numbness in bilateral legs and arms today. Today she went to her chirproctor and she had her back and leg manipulated. She then sat in a chair and took a nap and woke up with the bilateral numbness in arms and legs. she then went back to her chiropractor and had her back manipulated again. She denies any weakness. She states the numbness is equal. She denies any loss of motor strength. She is able to ambulate. This has never happened before. She denies any history of numbness. She has her back manipulated multiple times before. Sshe denies any slurred speech. She denies any difficulty finding words. She denies any back pain and neck pain. She denies any loss of bowel or bladder. She denies any saddle anaesthesia. She denies any numbness in her torso. She has a history of RA. She later states that is was a different manipulation performed today. On exam has good motor strength. neg Babinski's. Patella, ankle, and biceps reflex intact. CN II-XII intact. with soft vs dull sensation has decreased sensation bilteral thighs and foreams especially. normal sensation face and torso. Has decreased vibration sensation in bilateral feet and knees with tunning fork normal in upper extremity. discussed case with dr greene and recommends CT brain, chest xray and labs. reviewed results with dr greene. everything wnl. will try steriod as likely numbness due to manipulation today. will have follow up with primary. patient understands and agrees with plan. - Differential Dx Differential Diagnoses Neuro: Positive: Metabolic Abnormality, Transient Ischemic Attack, Other - dissection - Diagnoses Provider Diagnoses: Paresthesia of upper and lower extremities of both sides Discharge - Discharge Plan Condition: Good Disposition: HOME Prescriptions: Methylprednisolone [Medrol Dosepak 4 MG*] 4 mg PO .SEE VINI INSTRUCTION #1 packet Patient Education Materials: Paresthesia (ED) Referrals: Day Caro MD [Primary Care Provider] - Radha Hollis MD [Medical Doctor] - Additional Instructions: Follow directions on package for Medrol pack Use Tylenol for pain every 6 hours Follow up with primary within 5 days Follow up with neurology Return to ED if develop any new or worsening symptoms
[2017-11-27 20:51] LABS: ABS Basophils 0 10^3/ul (0-0.2); ABS Eosinophils 0.2 10^3/ul (0-0.6); ABS Lymphocytes 2.5 10^3/ul (1.0-4.8); ABS Monocytes 0.7 10^3/ul (0-0.8); ABS Neutrophils 4.8 10^3/ul (1.5-7.7); ABS Nucleated RBC 0 10^3/ul; Eosinophil % 2.1 % (0-6); Hematocrit 34 % (35-47); Lymphocyte % 30.1 % (25-47); Mean Corpuscular HGB Conc 33 g/dl (31-36); Mean Corpuscular Hemoglobin 27 pg (27-31); Mean Corpuscular Volume 83 fL (80-97); Mean Platelet Volume 8 um3 (7.4-10.4); Nucleated Red Blood Cells % 0; Platelet Count 196 10^3/ul (150-450); Red Blood Count 4.06 10^6/ul (4.0-5.4); Red Cell Distribution Width 17 % (10.5-15); White Blood Count 8.1 10^3/ul (3.5-10.8)
[2017-11-27 21:09] LABS: EGFR Non-African American 70.7 (>60)
--- NOTE | 2017-11-27 21:15 | RAD ---
INDICATION: Arm numbness. COMPARISON: Comparison is made with prior chest x-ray study from February 08, 2016. TECHNIQUE: Dual-energy PA and lateral views of the chest were obtained. FINDINGS: The heart is upper limits of normal in size. There is widening of the mediastinum which is unchanged most consistent with either an ectatic tortuous thoracic aorta or aortic aneurysm. The lungs are hyperinflated and clear. There is flattening of the diaphragms suggestive of chronic obstructive pulmonary disease. No pleural effusion is seen. IMPRESSION: 1. FINDINGS SUGGESTIVE OF COPD, NO EVIDENCE FOR ACUTE FINDING. 2. 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
--- NOTE | 2017-11-27 21:38 | RAD ---
INDICATION: Upper and lower extremity numbness. COMPARISON: There are no prior studies available for comparison. TECHNIQUE: Contiguous axial sections of the brain were obtained from the skull base to the vertex without contrast. FINDINGS: The ventricles, cisterns and sulci are enlarged consistent with diffuse atrophy. There are small areas of decreased density in the subcortical and periventricular white matter suggestive of mild chronic small vessel ischemic changes. No other focal abnormality or mass effect is seen. There is no evidence for hemorrhage. No significant focal osseous abnormality is seen. The visualized portion of the paranasal sinuses and mastoid air cells appear clear. IMPRESSION: NO EVIDENCE FOR ACUTE INTRACRANIAL ABNORMALITY.
[2017-11-27] MEDS ORDERED: predniSONE TAB* 20 MG PO ONE (22:15)
[2017-11-27 22:37] VITALS: BP 195/89
== END 2017-11-27 22:35 | disposition home or self-care (01) ==
LOC: ED 18:12
DX: R20.2 Paresthesia of skin (principal)
CPT/HCPCS: 36415; 70450; 71046; 80053; 82550; 84484; 85025; 86141; 93005; 99283; J7512

== ENCOUNTER 2017-11-30 13:17 | Inpatient (IN) | payer MEDICARE ==
[2017-11-30 13:56] LABS: ABS Basophils 0 10^3/ul (0-0.2); ABS Eosinophils 0 10^3/ul (0-0.6); ABS Lymphocytes 0.8 10^3/ul (1.0-4.8); ABS Monocytes 0.7 10^3/ul (0-0.8); ABS Neutrophils 6.7 10^3/ul (1.5-7.7); ABS Nucleated RBC 0 10^3/ul; Eosinophil % 0.3 % (0-6); Hematocrit 33 % (35-47); Lymphocyte % 9.2 % (25-47); Mean Corpuscular HGB Conc 33 g/dl (31-36); Mean Corpuscular Hemoglobin 28 pg (27-31); Mean Corpuscular Volume 83 fL (80-97); Mean Platelet Volume 8 um3 (7.4-10.4); Nucleated Red Blood Cells % 0; Platelet Count 170 10^3/ul (150-450); Red Cell Distribution Width 18 % (10.5-15); White Blood Count 8.2 10^3/ul (3.5-10.8)
[2017-11-30 14:13] LABS: EGFR Non-African American 62.3 (>60)
[2017-11-30 14:20] LABS: INR 1.07 (0.77-1.02)
--- NOTE | 2017-11-30 15:27 | RAD ---
Indication: Fever, cough. Single frontal view of the chest performed at 1445 hours was reviewed. Comparison is made with previous exam dated November 27, 2017. No mediastinal shift is noted. Extremely tortuous descending aorta is noted unchanged from prior exam. Lung lamb are clear. 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 NO SIGNIFICANT CHANGE IS NOTED SINCE NOVEMBER 27, 2017.
[2017-11-30] MEDS ORDERED: guaiFENesin/CODIEN 100MG-10MG* 5 ML UDC PO ONE (15:45)
[2017-11-30 16:41] LABS: Urine Appearance Clear; Urine Blood Negative (Negative); Urine Color Yellow; Urine Ketones Negative (Negative); Urine Protein Negative (Negative); Urine Specific Gravity 1.018 (1.010-1.030); Urine Urobilinogen Negative (Negative)
[2017-11-30] MEDS: NS 0.9% 1000 ML* 1,000 ML IV SCH (20:02)
[2017-11-30] MEDS ORDERED: Iohexol 350* (CONTRAST) 500 ML MDV IV ONE (20:42)
[2017-11-30] MEDS ORDERED: guaiFENesin LIQ* 100 MG/5 ML UDC PO PRN (20:45)
[2017-11-30] MEDS: Metoprolol Tartrate TAB* 50 mg PO SCH (20:49)
[2017-11-30] MEDS: busPIRone TAB* 15 MG PO SCH (20:49)
[2017-11-30] MEDS: Benzonatate CAP* 100 MG PO PRN (21:39)
[2017-11-30] MEDS: Acetaminophen TAB* 325 MG PO PRN (21:39)
[2017-11-30] MEDS ORDERED: Heparin VIAL(*) 5000 UNITS/ML VIAL (FIVE THOUSAND) SUBCUT SCH (22:00)
--- NOTE | 2017-11-30 22:32 | HP ---
CC: Dr. Day Caro * HISTORY AND PHYSICAL: DATE OF ADMISSION: 11/30/17 PRIMARY CARE PROVIDER: Dr. Day Caro. ATTENDING PHYSICIAN: Dr. Solange Lewis * (dictated by Mirlande Dejesus NP). CHIEF COMPLAINT: Chest congestion and cough for 1 day with intermittent wheezing. HISTORY OF PRESENT ILLNESS: Ms. Fernández is an 82-year-old female with past medical history significant for pulmonary embolus 10 years ago, off anticoagulation since a GI bleed in May 2017, anemia secondary GI bleed caused by a gastric ulcer, hypertension, hypothyroidism, chronic back pain who presented to the emergency room with complaints of 1 day of chest congestion and a cough. The patient reports intermittent subjective fevers and chills. She denies any chest pain. She reports minimal shortness of breath with exertion, but denies shortness of breath at rest. She denies nausea, vomiting, diarrhea. She reports a headache and some lightheadedness when she is standing up. Due to her symptoms, she presented to the emergency room for further evaluation. While in the emergency room, the patient had labs showing a sodium of 130, chloride of 97, no leukocytosis, mild anemia that appears to be at the patient' s baseline, negative urinalysis. She was negative for influenza A and B. She received Robitussin with codeine. She had a chest x-ray showing a tortuous descending aorta with clear lung lamb, no significant changes were noted to previous. The patient had normal oxygen saturations while lying in bed, but when she ambulated, her oxygen saturation dropped to 87% and she recovered back into the mid 90s according to ER documentation. Due to the patient's hypoxia, the Hospitalists were asked to evaluate the patient for admission. PAST MEDICAL HISTORY: 1. Unprovoked pulmonary embolus approximately 10 years ago. 2. Anemia secondary to gastric ulcer. 3. Hypertension. 4. Hypothyroidism. 5. Chronic back pain. PAST SURGICAL HISTORY: 1. Status post tubal ligation. 2. Status post cholecystectomy. HOME MEDICATIONS: Include 1. Potassium 10 mEq oral daily. 2. Metoprolol tartrate 50 mg oral twice daily. 3. Furosemide 20 mg oral daily. 4. Aspirin 81 mg oral daily. 5. BuSpar 15 mg oral twice daily. 6. Amlodipine 2.5 mg oral daily. 7. Levothyroxine 100 mcg oral daily. ALLERGIES: No known drug allergies. FAMILY HISTORY: The patient's parents had a history of heart disease. The patient has a daughter with a history of diabetes mellitus and there is no family history of cancer. SOCIAL HISTORY: The patient is a former smoker. She reports quitting many years ago. She reports that she does have a 15 20-year smoking history though at approximately a half a pack a day. She denies alcohol or recreational drug use. The patient would like her daughters, Natasha Levine and Vivien Stahl, to be her surrogate decision makers in an event she is unable to make decisions for herself. REVIEW OF SYSTEMS: I performed a 14-point review of systems. All the pertinent positives and negatives are mentioned in the history of present illness. The patient denies any urinary symptoms. The remaining review of systems are negative. PHYSICAL EXAMINATION GENERAL APPEARANCE: The patient is alert, pleasant, and appears to be in no acute distress. VITAL SIGNS: Temperature 99.3, heart rate 87, respiratory rate 20, O2 sat 95% on room air, blood pressure 150/58. HEENT: Normocephalic, atraumatic. Pupils are equal and reactive to light. Extraocular movements are intact. RESPIRATORY: There is no accessory muscle use. The lungs are clear to auscultation with an occasional expiratory wheeze heard. CARDIOVASCULAR: Regular rate and rhythm. S1 and S2 present. There are no murmurs, rubs, or gallops heard. ABDOMEN: Soft, nontender, nondistended. There were bowel sounds present x4. EXTREMITIES: There is a trace to 1+ bilateral lower extremity edema. DP and PT pulses are 2+ and symmetric. MUSCULOSKELETAL: There is no clubbing or cyanosis noted. The patient exhibits good strength in all extremities. NEUROLOGICAL: The patient is alert and oriented x4. Cranial nerves II through XII are grossly intact. PSYCHOLOGICAL: The patient is calm and cooperative. SKIN: There are no rashes or abnormalities seen. DIAGNOSTIC STUDIES/LABORATORY DATA: Sodium 130, potassium 3.6, chloride 97, CO2 24, BUN 12, creatinine 0.87, glucose 116. White blood cell count 8.2, hemoglobin 11.0, hematocrit 33, and platelet count 170. INR 1.07. Chest x-ray from today. Radiologist's impression: Tortuous descending aorta with lung lamb clear. No significant change is noted. IMPRESSION: Ms. Fernández is an 82-year-old female with past medical history significant for unprovoked pulmonary embolus, anemia, hypertension, hypothyroidism and chronic back pain who presented to the emergency room with complaints of chest congestion and cough for 1 day. She will be admitted as an observation for viral syndrome and hypoxia. ASSESSMENT: 1. Viral syndrome. I suspect the patient complains of chest congestion and a cough and intermittent fever and chills are secondary to viral syndrome. She had a rapid influenza A and B that was negative. We will give her supportive care with gentle IV hydration overnight. 2. Hypoxia. The patient is not hypoxic at rest, but was hypoxic with ambulation. She has a smoking history that could represent a chronic obstructive pulmonary disease diagnosis, although she has never formally been diagnosed with chronic obstructive pulmonary disease. She has minimal wheezing. For now, I am going to hold off on any steroids or treatment for that. But due to her history of an unprovoked pulmonary embolism in the past and the fact that she is off her anticoagulation, I am going to check a D-dimer and if this is elevated, I am going to get a CTA of her chest. This will also let us allow us to get a good eval of her lungs. If she does in fact have a pulmonary embolism, we will place her on anticoagulation and consider consulting GI for guidance as she last had a GI bleed in May of 2017. It is also to note that she is followed with Hematology in the past who recommended she be on lifelong anticoagulation due to her pulmonary embolism. She has been off of warfarin since GI bleed in May 2017. 3. Anemia. The patient appears to be stable at her baseline HH. 4. Hypertension. The patient will be continued on her home furosemide, metoprolol and amlodipine. 5. Hypothyroidism. The patient will be continued on her home levothyroxine. Her last TSH was 2.03 in December 2016. 6. Fluids, electrolytes and nutrition. The patient will be on a heart-healthy diet. 7. Code status. Full code. 8. DVT prophylaxis. The patient is at highest risk. For now, we will start with SCDs and subcu heparin. We will change this of course if she has pulmonary embolus. 5. Disposition. Observation. TIME SPENT: The time for this admission was approximately 60 minutes, greater than half of that was spent with the patient and family discussing medications, past medical history and the events leading up to her arrival today and performing a physical examination. The case has been reviewed with the attending, Dr. Lewis, who agrees with the plan of care. Reviewed by MONI BYRNE 12/08/17 1518 [id number]/[facility] #: [id number] MTDD
--- NOTE | 2017-11-30 23:11 | PN ---
Progress Note - Progress Note Date of Service: 11/30/17 Note: Radiology notified of R subsegmental PE. Already received 5000 units heparin SQ at 2142. Will start PE protocol heparin GTT w/ initial bolus minus 5000. Add telemetry.
[2017-11-30] MEDS ORDERED: Heparin DRIP 25,000 UNITS(*) 25,000 UNITS/500 ML BAG IV SCH (23:15)
[2017-11-30] MEDS ORDERED: Heparin VIAL(*) 5000 UNITS/ML VIAL (FIVE THOUSAND) IV SCH (23:45)
[2017-12-01 00:32] LABS: ABS Basophils 0 10^3/ul (0-0.2); ABS Eosinophils 0 10^3/ul (0-0.6); ABS Lymphocytes 1.3 10^3/ul (1.0-4.8); ABS Monocytes 0.7 10^3/ul (0-0.8); ABS Neutrophils 4.4 10^3/ul (1.5-7.7); ABS Nucleated RBC 0 10^3/ul; Eosinophil % 0.2 % (0-6); Hematocrit 29 % (35-47); Hemoglobin 9.7 g/dl (12.0-16.0); Mean Corpuscular HGB Conc 33 g/dl (31-36); Mean Corpuscular Hemoglobin 27 pg (27-31); Mean Corpuscular Volume 83 fL (80-97); Mean Platelet Volume 8 um3 (7.4-10.4); Nucleated Red Blood Cells % 0; Platelet Count 134 10^3/ul (150-450); Red Blood Count 3.54 10^6/ul (4.0-5.4); Red Cell Distribution Width 17 % (10.5-15); White Blood Count 6.4 10^3/ul (3.5-10.8)
[2017-12-01] MEDS: Levothyroxine TAB* 100 MCG TAB PO SCH (05:11)
[2017-12-01] MEDS: Acetaminophen TAB* 325 MG PO PRN ×3 (06:56→21:44)
--- NOTE | 2017-12-01 08:07 | RAD ---
Indication: Shortness of breath, hypoxia. Contrast: Administered 75.0 ml of OMNIPAQUE 350 mg/ml CTA of the chest was performed after IV contrast administration. Coronal and sagittal reconstructed images were obtained. The pulmonary arterial tree is well opacified. There are small filling defects in the segmental arteries of the right lower lobe consistent with pulmonary embolus. The left pulmonary artery is unremarkable. The heart is enlarged without pericardial effusion. The trachea and major bronchi appear patent. No evidence of alveolar consolidation is noted. No pleural fluid is identified. The thoracic aorta demonstrates ectasia without evidence of thoracic aortic dissection. Atherosclerotic aorta with peripheral thrombus is noted in the descending aorta. There is no mediastinal or hilar adenopathy noted. Atelectasis in the left lung base is noted. The visualized abdominal organs are otherwise unremarkable. IMPRESSION: Segmental pulmonary embolus is noted in the right lower lobe. No evidence of thoracic aortic dissection is noted.
[2017-12-01] MEDS: busPIRone TAB* 15 MG PO SCH ×2 (08:13→21:39)
[2017-12-01] MEDS: Furosemide TAB* 20 MG PO SCH (08:13)
[2017-12-01] MEDS: amLODIPine TAB* 5 MG PO SCH (08:13)
[2017-12-01] MEDS: Metoprolol Tartrate TAB* 50 mg PO SCH ×2 (08:13→21:39)
[2017-12-01] MEDS: Potassium Chlor TAB* 10 MEQ TAB.ER PO SCH (08:13)
[2017-12-01] MEDS: Aspirin EC Low Dose* 81 MG TAB.EC PO SCH (08:13)
[2017-12-01] MEDS: NS 0.9% 1000 ML* 1,000 ML IV SCH ×2 (08:14→21:40)
[2017-12-01] MEDS ORDERED: Pneumococcal *Vac Polyvalent 0.5 ML VIAL IM ONE (09:00)
[2017-12-01 09:42] LABS: ABS Basophils 0 10^3/ul (0-0.2); ABS Eosinophils 0 10^3/ul (0-0.6); ABS Lymphocytes 0.8 10^3/ul (1.0-4.8); ABS Monocytes 0.6 10^3/ul (0-0.8); ABS Nucleated RBC 0 10^3/ul; Eosinophil % 0.4 % (0-6); Hematocrit 32 % (35-47); Hemoglobin 10.4 g/dl (12.0-16.0); Lymphocyte % 10.3 % (25-47); Mean Corpuscular HGB Conc 33 g/dl (31-36); Mean Corpuscular Hemoglobin 27 pg (27-31); Mean Corpuscular Volume 83 fL (80-97); Mean Platelet Volume 9 um3 (7.4-10.4); Nucleated Red Blood Cells % 0; Platelet Count 145 10^3/ul (150-450); Red Blood Count 3.84 10^6/ul (4.0-5.4); Red Cell Distribution Width 17 % (10.5-15); White Blood Count 7.5 10^3/ul (3.5-10.8)
[2017-12-01 09:55] LABS: EGFR Non-African American 84.3 (>60)
--- NOTE | 2017-12-01 11:34 | PN ---
Subjective Date of Service: 12/01/17 Interval History: Patient seen and examined at bedside. Denies fever, chills, shortness of breath , chest discomfort, N/V/D. Pt continues to have a cough. Pt states that she is comfortable giving herself Lovenox injections. Tele: Sinus rhythm, rate 60-90's with PACs Family History: Unchanged from Admission Social History: Unchanged from Admission Past Medical History: Unchanged from Admission Objective Active Medications: Acetaminophen (Tylenol Tab*) 650 mg PO Q4H PRN Reason: FEVER/PAIN Amlodipine Besylate (Norvasc Tab*) 2.5 mg PO DAILY LEAH Aspirin (Aspirin Ec Low Dose*) 81 mg PO DAILY LEAH Benzonatate (Tessalon Cap*) 200 mg PO Q8H PRN Reason: COUGH Buspirone HCl (Buspar Tab *) 15 mg PO BID LEAH Furosemide (Lasix Tab*) 20 mg PO DAILY LEAH Guaifenesin (Robitussin*) 5 ml PO Q6H PRN Reason: COUGH Heparin Sodium (Porcine) (Heparin Vial(*)) 0 units IV .PER PROTOCOL [facility] Sodium Chloride (Ns 0.9% 1000 Ml*) 1,000 mls @ 100 mls/hr IV PER RATE LEAH Heparin Sodium/Dextrose (Heparin Drip 25,000 Units(*)) 25,000 units in 500 mls @ 0 mls/hr IV .NO INITIAL BOLUS LEAH; As Directed Levothyroxine Sodium (Synthroid Tab*) 100 mcg PO DAILY@0600 [facility] Metoprolol Tartrate (Lopressor Tab*) 50 mg PO BID LEAH Potassium Chloride (Klor Con Er Tab*) 10 meq PO DAILY LEAH Vital Signs - 8 hr 12/01/17 12/01/17 12/01/17 04:14 07:20 08:00 Temperature 98.0 F 102.2 F Pulse Rate 91 92 Respiratory 22 16 Rate Blood Pressure 149/73 143/75 (mmHg) O2 Sat by Pulse 98 98 97 Oximetry 12/01/17 08:16 Temperature Pulse Rate Respiratory Rate Blood Pressure (mmHg) O2 Sat by Pulse 97 Oximetry Oxygen Devices in Use Now: None Appearance: NAD, laying in bed Ears/Nose/Mouth/Throat: Mucous Membranes Moist Respiratory: Symmetrical Chest Expansion and Respiratory Effort, Clear to Auscultation Cardiovascular: NL Sounds; No Murmurs; No JVD, RRR Abdominal: NL Sounds; No Tenderness; No Distention Extremities: No Edema Skin: No Rash or Ulcers Neurological: Alert and Oriented x 3, NL Muscle Strength and Tone Lines/Tubes/Other Access: Clean, Dry and Intact Peripheral IV - site benign Nutrition: Taking PO's Result Diagrams: 12/01/17 09:25 12/01/17 09:25 Assess/Plan/Problems-Billing Assessment: Ms. Fernández is an 82 yo female with PMH significant for hx unprovoked PE, anemia, HTN, hypothyroidism, and chronic back pain whp presented to the emergency room with complaints of chest congestion and cough. - Patient Problems (1) Pulmonary embolism Code(s): I26.99 - OTHER PULMONARY EMBOLISM WITHOUT ACUTE COR PULMONALE SNOMED Code(s): 98384849 Comment: - New right sided PE - Hematology consult, input appreciated - Will change Heparin gtt to Lovenox bridge to warfarin (2) Viral syndrome Comment: - Fever ~ 102 this AM - Influenza A/B neagtive - Blood cultures, pending - Supportive care - Continue tessalon pearles and IVFs (3) Electrolyte abnormality Code(s): E87.8 - OTH DISORDERS OF ELECTROLYTE AND FLUID BALANCE, NEC SNOMED Code(s): 453046675 Comment: - Hypokalemia, Will give replacement and check in AM. Will also add on MG+ to AM labs (4) History of GI bleed Code(s): Z87.19 - PERSONAL HISTORY OF OTHER DISEASES OF THE DIGESTIVE SYSTEM SNOMED Code(s): 808110665 Comment: - 2016 - Continues to be anemic, will check a stool for occult blood - Off anticoagulation since then (5) HTN (hypertension) Code(s): I10 - ESSENTIAL (PRIMARY) HYPERTENSION SNOMED Code(s): 75185820 Comment: - Mostly normotensive - Continue metoprolol, amlodipine, and furosemide (6) Hypothyroidism Code(s): E03.9 - HYPOTHYROIDISM, UNSPECIFIED SNOMED Code(s): 09616838 Comment: - Last TSH WNL 12/2016 - Continue levothyroxine (7) DVT prophylaxis Code(s): PLM5375 - SNOMED Code(s): 837149213 Comment: - Heparin gtt, change to Lovenox bridge to Warfarin (8) Full code status Code(s): Z78.9 - OTHER SPECIFIED HEALTH STATUS SNOMED Code(s): 361481594 Status and Disposition: OBV to Inpatient . Discharge to home when medically stable, possibly in the AM once she is afebrile for 24 hours.
[2017-12-01] MEDS ORDERED: Potassium Chlor TAB* 20 MEQ TAB.ER PO ONE (11:47)
[2017-12-01] MEDS ORDERED: Magnesium Sulfate 2 GM IV* 2 GM/50 ML BAG IVPB ONE (12:37)
--- NOTE | 2017-12-01 14:29 | ED ---
Deepak Wright Jennifer, scribed for Александр Ansari MD on 11/30/17 at 1456 . Influenza-Like Illness - HPI Summary HPI Summary: This patient is an 82 year old F presenting to ED with a chief complaint of productive cough since yesterday. The patient rates the pain 0/10 in severity. Symptoms aggravated by nothing. Symptoms alleviated by nothing. Patient reports fever, congestion, and edema. Patient denies N/V/D. - History of Current Complaint Chief Complaint: EDFluSymptoms Time Seen by Provider: 11/30/17 14:39 Hx Obtained From: Patient Onset/Duration: Lasting Days - began yesterday, Still Present Severity: Mild Associated Signs & Symptoms: Fever, Cough - Allergy/Home Medications Allergies/Adverse Reactions: Allergies Allergy/AdvReac Type Severity Reaction Status Date / Time No Known Allergies Allergy Verified 07/28/16 16:40 Home Medications: Home Medications Potassium Chlor TAB* [Klor Con ER TAB*] 10 meq PO DAILY 11/30/17 [History Confirmed 11/30/17] PMH/Surg Hx/FS Hx/Imm Hx Endocrine/Hematology History: Reports: Hx Thyroid Disease Denies: Hx Diabetes Cardiovascular History: Reports: Hx Hypertension - on meds Denies: Hx Congestive Heart Failure Respiratory History: Reports: Hx Pulmonary Embolism Denies: Hx Asthma, Hx Chronic Obstructive Pulmonary Disease (COPD) GI History: Denies: Hx Ulcer Musculoskeletal History: Reports: Hx Arthritis, Hx Rheumatoid Arthritis, Hx Back Problems Denies: Hx Scoliosis Sensory History: Denies: Hx Contacts or Glasses, Hx Hearing Aid Opthamlomology History: Denies: Hx Contacts or Glasses Neurological History: Denies: Hx Headaches - Surgical History Surgery Procedure, Year, and Place: Tubal Ligation, Bilateral Cataracts surgery , Gallbladder. - Immunization History Date of Influenza Vaccine: Fall 2016 Infectious Disease History: No Infectious Disease History: Denies: Hx Hepatitis, Hx Human Immunodeficiency Virus (HIV), History Other Infectious Disease, Traveled Outside the [place] in Last 30 Days - Family History Known Family History: Positive: Hypertension - Social History Alcohol Use: None Hx Substance Use: No Substance Use Type: Reports: None Hx Tobacco Use: Yes Smoking Status (MU): Former Smoker Review of Systems Positive: Fever Positive: Cough - Productive. Negative: Other - congestion Negative: Vomiting, Diarrhea, Nausea Positive: Edema All Other Systems Reviewed And Are Negative: Yes Physical Exam - Summary Physical Exam Summary: Appearance: The patient is well-nourished in no acute distress and in no acute pain. Skin: The skin is warm and dry and skin color reflects adequate perfusion. HEENT: ~The head is normocephalic and atraumatic. The pupils are equal and reactive. The conjunctivae are clear and without drainage. ~Nares are patent and without drainage. ~Mouth reveals moist mucous membranes and the throat is without erythema and exudate. ~The external ears are intact. The ear canals are patent and without drainage. The tympanic membranes are intact. Neck: the neck is supple with full range of motion and non-tender. There are no carotid bruits. ~There is no neck vein distension. Respiratory: Chest is non-tender. ~Lungs are clear to auscultation and breath sounds are symmetrical and equal. Cardiovascular: Heart is regular rate and rhythm. ~There is no murmur or rub auscultated. ~~There is no peripheral edema and pulses are symmetrical and equal. Abdomen: The abdomen is soft and non-tender. ~There are normal bowel sounds heard in all four quadrants and there is no organomegaly palpated. Musculoskeletal: There is no back tenderness noted. ~Extremities are non-tender with full range of motion. ~There is good capillary refill. ~There is slight pitting edema. Neurological: Patient is alert and oriented to person, place and time. ~The patient has symmetrical motor strength in all four extremities. ~Cranial nerves are grossly intact. Deep tendon reflexes are symmetrical and equal in all four extremities. Psychiatric: The patient has an appropriate affect and does not exhibit any anxiety or depression. Triage Information Reviewed: Yes Vital Signs On Initial Exam: Initial Vitals Temp Pulse Resp BP Pulse Ox 100.2 F 106 22 153/84 91 11/30/17 13:19 11/30/17 13:19 11/30/17 13:19 11/30/17 13:19 11/30/17 13:19 Vital Signs Reviewed: Yes Diagnostics - Vital Signs Vital Signs Temp Pulse Resp BP Pulse Ox 11/30/17 14:47 95 11/30/17 14:34 101 95 11/30/17 14:33 134/69 11/30/17 13:19 100.2 F 106 22 153/84 91 - Laboratory Lab Results: Lab Results 11/30/17 11/30/1711/30/18 Range/Units 13:37 13:44 13:44 WBC 8.2 (3.5-10.8) 10^3/ul RBC 4.00 (4.0-5.4) 10^6/ul Hgb 11.0 L (12.0-16.0) g/dl Hct 33 L (35-47) % MCV 83 (80-97) fL MCH 28 (27-31) pg MCHC 33 (31-36) g/dl RDW 18 H (10.5-15) % Plt Count 170 (150-450) 10^3/ul MPV 8 (7.4-10.4) um3 Neut % (Auto) 81.7 (38-83) % Lymph % (Auto) 9.2 L (25-47) % [place] % (Auto) 8.5 (1-9) % Eos % (Auto) 0.3 (0-6) % Baso % (Auto) 0.3 (0-2) % Absolute Neuts (auto) 6.7 (1.5-7.7) 10^3/ul Absolute Lymphs (auto) 0.8 L (1.0-4.8) 10^3/ul Absolute Monos (auto) 0.7 (0-0.8) 10^3/ul Absolute Eos (auto) 0 (0-0.6) 10^3/ul Absolute Basos (auto) 0 (0-0.2) 10^3/ul Absolute Nucleated RBC 0 10^3/ul Nucleated RBC % 0 INR (Anticoag Therapy) 1.07 H (0.77-1.02) APTT 24.4 L (26.0-36.3) seconds Sodium (133-145) mmol/L Potassium (3.5-5.0) mmol/L Chloride (101-111) mmol/L Carbon Dioxide (22-32) mmol/L Anion Gap (2-11) mmol/L BUN (6-24) mg/dL Creatinine (0.51-0.95) mg/dL Est GFR ( Amer) (>60) Est GFR (Non-Af Amer) (>60) BUN/Creatinine Ratio (8-20) Glucose (70-100) mg/dL Lactic Acid (0.5-2.0) mmol/L Calcium (8.6-10.3) mg/dL Total Bilirubin (0.2-1.0) mg/dL AST (13-39) U/L ALT (7-52) U/L Alkaline Phosphatase (34-104) U/L Troponin I (<0.04) ng/mL Total Protein (6.4-8.9) g/dL Albumin (3.2-5.2) g/dL Globulin (2-4) g/dL Albumin/Globulin Ratio (1-3) Influenza A (Rapid) Negative (Negative) Influenza B (Rapid) Negative (Negative) 11/30/17 11/30/17 Range/Units 13:44 13:44 WBC (3.5-10.8) 10^3/ul RBC (4.0-5.4) 10^6/ul Hgb (12.0-16.0) g/dl Hct (35-47) % MCV (80-97) fL MCH (27-31) pg MCHC (31-36) g/dl RDW (10.5-15) % Plt Count (150-450) 10^3/ul MPV (7.4-10.4) um3 Neut % (Auto) (38-83) % Lymph % (Auto) (25-47) % [place] % (Auto) (1-9) % Eos % (Auto) (0-6) % Baso % (Auto) (0-2) % Absolute Neuts (auto) (1.5-7.7) 10^3/ul Absolute Lymphs (auto) (1.0-4.8) 10^3/ul Absolute Monos (auto) (0-0.8) 10^3/ul Absolute Eos (auto) (0-0.6) 10^3/ul Absolute Basos (auto) (0-0.2) 10^3/ul Absolute Nucleated RBC 10^3/ul Nucleated RBC % INR (Anticoag Therapy) (0.77-1.02) APTT (26.0-36.3) seconds Sodium 130 L (133-145) mmol/L Potassium 3.6 (3.5-5.0) mmol/L Chloride 97 L (101-111) mmol/L Carbon Dioxide 24 (22-32) mmol/L Anion Gap 9 (2-11) mmol/L BUN 12 (6-24) mg/dL Creatinine 0.87 (0.51-0.95) mg/dL Est GFR ( Amer) 80.2 (>60) Est GFR (Non-Af Amer) 62.3 (>60) BUN/Creatinine Ratio 13.8 (8-20) Glucose 116 H (70-100) mg/dL Lactic Acid 1.1 (0.5-2.0) mmol/L Calcium 8.7 (8.6-10.3) mg/dL Total Bilirubin 0.60 (0.2-1.0) mg/dL AST 17 (13-39) U/L ALT 12 (7-52) U/L Alkaline Phosphatase 63 (34-104) U/L Troponin I 0.01 (<0.04) ng/mL Total Protein 7.1 (6.4-8.9) g/dL Albumin 3.8 (3.2-5.2) g/dL Globulin 3.3 (2-4) g/dL Albumin/Globulin Ratio 1.2 (1-3) Influenza A (Rapid) (Negative) Influenza B (Rapid) (Negative) Result Diagrams: 12/01/17 09:25 12/01/17 09:25 Lab Statement: Any lab studies that have been ordered have been reviewed, and results considered in the medical decision making process. - Radiology CXR Xray Interpretation: No Acute Changes - TORTUOUS DESCENDING AORTA WITH LUNGS ARE CLEAR. NO SIGNIFICANT CHANGE IS NOTED SINCE NOVEMBER 27, 2017. Dr. Ansari has reviewed this report. Radiology Interpretation Completed By: Radiologist Flu Symptom Course/Dx - Course Course Of Treatment: Ms. Fernández presented with flu-like symptoms and didn't seem to be im much distress. She was hydrated some and her CXR and labs weren't bad. Her influenza swab was negative. When we ambulated her for D/C she dropped her SPO2 down into the 80's and, therefore, I consulted the hospitalist service for admission. - Diagnoses Differential Diagnosis/HQI/PQRI: Positive: Influenza, Other - respiratory insufficiency Provider Diagnoses: Influenza, Respiratory insufficiency - Physician Notifications Discussed Care Of Patient With: Solange Lewis Time Discussed With Above Provider: 17:48 Instructed by Provider To: Other - Consulted Dr. Lewis who accepts the pt for admisison. Discharge - Discharge Plan Condition: Stable Disposition: ADMITTED TO [facility] The documentation as recorded by the Deepak wagner Jennifer accurately reflects the service I personally performed and the decisions made by me, Александр Ansari MD.
[2017-12-01] MEDS: Enoxaparin(*) 100 MG/ML SYR SUBCUT SCH (17:48)
[2017-12-01] MEDS: Benzonatate CAP* 100 MG PO PRN (21:43)
[2017-12-02] MEDS: Enoxaparin(*) 100 MG/ML SYR SUBCUT SCH (06:42)
[2017-12-02] MEDS: Levothyroxine TAB* 100 MCG TAB PO SCH (06:42)
[2017-12-02 07:52] VITALS: BP 155/84
[2017-12-02] MEDS: Aspirin EC Low Dose* 81 MG TAB.EC PO SCH (07:59)
[2017-12-02] MEDS: Metoprolol Tartrate TAB* 50 mg PO SCH (07:59)
[2017-12-02] MEDS: Furosemide TAB* 20 MG PO SCH (07:59)
[2017-12-02] MEDS: busPIRone TAB* 15 MG PO SCH (08:00)
[2017-12-02] MEDS: Potassium Chlor TAB* 10 MEQ TAB.ER PO SCH (08:00)
[2017-12-02] MEDS: amLODIPine TAB* 5 MG PO SCH (08:00)
[2017-12-02 08:53] LABS: ABS Basophils 0 10^3/ul (0-0.2); ABS Eosinophils 0 10^3/ul (0-0.6); ABS Monocytes 0.7 10^3/ul (0-0.8); ABS Neutrophils 5.8 10^3/ul (1.5-7.7); ABS Nucleated RBC 0 10^3/ul; Eosinophil % 0 % (0-6); Hematocrit 33 % (35-47); Hemoglobin 10.9 g/dl (12.0-16.0); Lymphocyte % 13.3 % (25-47); Mean Corpuscular HGB Conc 33 g/dl (31-36); Mean Corpuscular Hemoglobin 27 pg (27-31); Mean Corpuscular Volume 82 fL (80-97); Mean Platelet Volume 9 um3 (7.4-10.4); Nucleated Red Blood Cells % 0.1; Platelet Count 146 10^3/ul (150-450); Red Blood Count 3.99 10^6/ul (4.0-5.4); Red Cell Distribution Width 17 % (10.5-15); White Blood Count 7.5 10^3/ul (3.5-10.8)
[2017-12-02 09:05] LABS: Corrected Retic Count 0.7 % (0.5-1.5); Hematocrit for Retic CNT 33 % (35-47); Immature Retic Fraction 0.44; RBC Retic Count 4.02 10^6/ul (4.6-6.2)
[2017-12-02 09:06] LABS: EGFR Non-African American 90.5 (>60)
--- NOTE | 2017-12-02 09:19 | PN ---
Subjective Date of Service: 12/02/17 Interval History: Ms. Fernández states that she is feeling much better today though she continues to have a non-productive cough. She denies significant dyspnea with exertion. She further denies chest pain, nausea, or abdominal pain. Family History: Unchanged from Admission Social History: Unchanged from Admission Past Medical History: Unchanged from Admission Objective Active Medications: Acetaminophen (Tylenol Tab*) 650 mg PO Q4H PRN Amlodipine Besylate (Norvasc Tab*) 2.5 mg PO DAILY LAEH Aspirin (Aspirin Ec Low Dose*) 81 mg PO DAILY LEAH Benzonatate (Tessalon Cap*) 200 mg PO Q8H PRN Buspirone HCl (Buspar Tab *) 15 mg PO BID LEAH Enoxaparin Sodium (Lovenox(*)) 88 mg SUBCUT Q12H LEAH Furosemide (Lasix Tab*) 20 mg PO DAILY LEAH Guaifenesin (Robitussin*) 5 ml PO Q6H PRN Sodium Chloride (Ns 0.9% 1000 Ml*) 1,000 mls @ 100 mls/hr IV PER RATE LEAH Levothyroxine Sodium (Synthroid Tab*) 100 mcg PO DAILY@0600 LEAH Metoprolol Tartrate (Lopressor Tab*) 50 mg PO BID LEAH Potassium Chloride (Klor Con Er Tab*) 10 meq PO DAILY [facility] Vital Signs: Temp Pulse Resp BP Pulse Ox 98.8 F 98 16 155/84 96 12/02/17 07:47 12/02/17 07:47 12/02/17 07:47 12/02/17 07:47 12/02/17 07:52 Oxygen Devices in Use Now: None Appearance: Female sitting on edge of bed in NAD Eyes: No Scleral Icterus Ears/Nose/Mouth/Throat: Mucous Membranes Moist Neck: Trachea Midline Respiratory: Symmetrical Chest Expansion and Respiratory Effort, - - Upper airway congestion noted, non-productive cough, clear in bases Cardiovascular: NL Sounds; No Murmurs; No JVD, No Edema Abdominal: NL Sounds; No Tenderness; No Distention Lymphatic: No Cervical Adenopathy Extremities: No Edema Skin: No Rash or Ulcers Neurological: Alert and Oriented x 3, NL Muscle Strength and Tone Nutrition: Taking PO's Result Diagrams: 12/02/17 08:31 12/02/17 08:31 Additional Lab and Data: . Assess/Plan/Problems-Billing Assessment: Ms. Fernández is an 82 yo female with PMH significant for hx unprovoked PE, anemia, HTN, hypothyroidism, and chronic back pain who presented to the emergency room with complaints of chest congestion and cough ultimately found to have a pulmonary embolism. - Patient Problems (1) Pulmonary embolism Comment: - New right sided PE. - Hematology consulted, note not available at the time of my evaluation. - Continue Lovenox bridge to warfarin. Pt weighed today, 190lbs, ok to 80mg lovenox BID per Dr Bolanos for ease of administration. - Patient to follow up outpatient with Dr. Bolanos. Patient has hx of lower GI bleed, suspected to be diverticular. (2) Bronchitis Comment: - No infiltrate noted on CTA chest. - However she did have a fever to 102, but no tachycardia, tachypnea or hypoxia. - Suspect bronchitis. - Patient recommended to have close follow up with PCP to ensure resolution of symptoms. (3) HTN (hypertension) Comment: - SBP 130-150s - Continue metoprolol, amlodipine, and furosemide. Recommend follow up outpatient for adjustment of BP meds when recovered from acute illness. (4) Hypothyroidism Comment: - Last TSH WNL 12/2016 - Continue levothyroxine (5) DVT prophylaxis Comment: - Lovenox bridge to Warfarin (6) Full code status Comment: Status and Disposition: Inpatient . Discharge to home.
[2017-12-02] MEDS ORDERED: Loperamide LIQ* 2 MG/10 ML UDC PO ONE (10:50)
--- NOTE | 2017-12-02 11:43 | CONS ---
CONSULTATION REPORT: DATE OF CONSULT: REFERRING PHYSICIAN: Hospitalist. PRIMARY CARE PHYSICIAN: Dr. Day Caro. REASON FOR CONSULT: Pulmonary embolus. CHIEF COMPLAINT: Cough and chest congestion. HISTORY OF PRESENT ILLNESS: An 82-year-old female, who had had a pulmonary embolus in 2007. The thr ombosis at that time occurred without propagation and I had seen the patient at that time. She was p laced on Coumadin and she recovered from the thrombosis completely. It was decided to proceed with l katie-term anticoagulation. She remained on Coumadin between 2008 and May of 2017. During that time , she had no significant bleeding events, she tolerated medications well and was relatively stable in terms of her INRs. Review of blood work shows range very consistently between 1.88 and 3.7 over 6 y ears. In May of 2017, she presented with lower GI bleed. She had dark stool per rectum. She had a colonoscopy by Dr. March that should extensive diverticula. After a reasonable discussion about risks and benefits of continued anticoagulation, the warfarin was discontinued. She had done well fr om May 2017 up until this admission. She has had no additional GI bleeding. She presented to the emergency room on 11/30/17 with cough and chest pressure. She reports approxima tely 2-week history of some weakness while trying to walk, saying her legs would just give out. She then developed cough and chest pain. No fevers or chills, cough is nonproductive. She had an x-ray that was negative. In the emergency room, she was noted to have heart rate that was mildly elevated at 101 to 106. She had a normal saturation at rest, but oxygen saturation decreased into the mid 80s with exertion. For that reason, she had a CT angiogram done. The CT angiogram showed a thrombosis in segmental artery, right lower lobe. CT was reviewed with Dr. Pantoja and when compared to CTA done i 2010, this is a new thrombus. D-dimer was sent and elevated at 1038. She was placed on heparin an d admitted for recurrent pulmonary embolus. Since being in the hospital, her breathing has been stab le to improved. She is not having any chest pain. Other studies include negative guaiac. She is found to have a consistent microcytic anemia with hemo globin of 10.4, white count 7.5, and she has mildly low platelets of 145. She had a B12 done of 262, normal TSH, iron studies with the ferritin level 12.5 and saturation of 22%. PAST MEDICAL HISTORY: 1. Unprovoked PE in 2008. 2. Diverticular bleed, 2017. 3. Hypertension. 4. Hypothyroidism. 5. Chronic back pain. PAST SURGICAL HISTORY: 1. Tubal ligation. 2. Cholecystectomy. HOME MEDICATIONS: 1. Potassium 10 mEq daily. 2. Metoprolol 50 twice a day. 3. Furosemide 20 a day. 4. Aspirin 81 a day. 5. BuSpar 15 twice daily. ALLERGIES: None. FAMILY HISTORY: No heart disease. No family history of thrombosis. There is diabetes in the family , no cancer. SOCIAL HISTORY: Former smoker, but quit some time ago. No alcohol use and she lives alone. Primary social support is her daughters. REVIEW OF SYSTEMS: General: No fevers, chills, night sweats. Stable weight. HEENT: Negative. Jay gs: Cough and shortness of breath as noted above. Cardiac: Negative. GI: Negative. Neuro: Some dizziness with sitting up. Musculoskeletal: Some chronic back pain. A 14-point review otherwise neg ative. PHYSICAL EXAM: Vital Signs: Temperature 98.8, BP /84, pulse 98, respirations 16, sat 96% on ro om air. HEENT: Mucosa moist. No lesions. Neck: No lymphadenopathy. No JVD. Lungs: Clear to au scultation. Heart: Regular rate and rhythm. S1 and S2. No murmurs or gallops. Abdomen: Nontende r, nondistended. Good bowel sounds. No hepatosplenomegaly. Extremities: No clubbing, cyanosis, or edema, and good pulses. LABORATORY DATA: As noted above. ASSESSMENT AND PLAN: This is an 82-year-old female with history of idiopathic pulmonary embolus, on long-term anticoagulation. Stopped mid last year after lower gastrointestinal bleed. Now with recur rent thrombosis. At this point, she is at high risk of recurrent thrombosis and we again recommended long-term anticoagulation. We will not send coagulation workup as it would not affect decision belén appiah at this point. Given that she tolerated Coumadin before and is at risk for recurrent gastrointest inal bleed, going back on Coumadin is the simplest solution. 1. Recommend Coumadin 5 mg p.o. daily. She can titrate at home and switch with once daily Lovenox d osing. We are happy to see her in clinic and followup an INR and manage her Coumadin. 2. Microcytic anemia. Differential diagnosis includes iron deficiency from additional gastrointesti nal bleed, moderately low B12, and we will check methylmalonic acid, could have dysplasia given concu rrent thrombocytopenia. Send blood work while in the hospital and then follow up as outpatient. 3. We will need to follow for additional gastrointestinal bleed. Risks discussed with the patient. 4. We will follow while she is in the hospital and plan on seeing her when she goes home. [id number]/[facility] #: [id number]
--- NOTE | 2017-12-02 13:55 | DS ---
CC: Dr. Caro; Dr. Bolanos * DISCHARGE SUMMARY: DATE OF ADMISSION: 11/30/17 DATE OF DISCHARGE: 12/02/17 PRIMARY CARE PHYSICIAN: Dr. Caro. ONCOLOGIST: Dr. Bolanos. ATTENDING PHYSICIAN: Dr. Alonso Holman * (dictation provided by Nina Curran NP) PRIMARY DIAGNOSES: 1. Pulmonary embolism. 2. Bronchitis. SECONDARY DIAGNOSES: 1. History of lower gastrointestinal bleed, suspected secondary to diverticulitis. 2. History of pulmonary embolism approximately 10 years ago. 3. Hypothyroidism. 4. Hypertension. 5. Chronic back pain. PAST SURGICAL HISTORY: 1. Status post tubal ligation. 2. Status post cholecystectomy. MEDICATIONS: 1. Potassium chloride 10 mEq p.o. daily. 2. Metoprolol tartrate 50 mg p.o. daily. 3. Levothyroxine 100 mcg p.o. daily. 4. Furosemide 20 mg p.o. daily. 5. Aspirin 81 mg p.o. daily. 6. BuSpar 15 mg p.o. b.i.d. 7. Amlodipine 2.5 mg p.o. daily. 8. Guaifenesin 600mg p.o. q.6 hours p.r.n. 9. Warfarin 4 mg p.o. daily (new medication). 10. Lovenox 80 mg subcutaneously q.12 hours (new medication). 11. Benzonatate 200 mg p.o. q.8 hours p.r.n. 12. Tylenol 650 mg p.o. q.4 hours p.r.n. HOSPITAL COURSE: Ms. Fernández is an 82-year-old female with a past medical history of an unprovoked PE approximately 10 years ago, who had been taken off warfarin for history of lower GI bleed, thought to be secondary to diverticulosis. The patient presented to our emergency room on 11/30/17 with concern for cough, congestion, and wheezing, at which point it was suspected that she had bronchitis. The patient was initially hypoxic with an O2 saturation dropping to 87% with ambulation. The patient had a chest x-ray that showed no evidence of infiltrate or other abnormality. Because of her history of PE, she did go on to have chest and thorax CTA, which did confirm a "segmental pulmonary embolus is noted in the right lower lobe. No evidence of thoracic aortic dissection is noted." Ms. Fernández was admitted to the hospital. Treatment was begun with heparin and then transitioned over to Lovenox as a bridge for warfarin. Based on the patient's history of a previous DVT and a GI bleed, Dr. Bolanos was consulted and he recommended that we continue with the Lovenox with warfarin. He also stated that he would be seeing her in followup outpatient. Ms. Fernández states she is feeling much better today. She is ambulating in her room without oxygen. She does not feel significantly dyspneic on exertion and feels better than on arrival. She continues to have some upper airway congestion and dry nonproductive cough. She did have a fever to 102 earlier in this hospitalization but none since. Based on the negative chest x-ray and negative CT for any infiltrate, I suspect that she likely has bronchitis with fever related to viral syndrome and/or her new PE. I think that she is recovering well. I do not think addition of steroids or antibiotics is indicated at this point; however, Ms. Fernández will be following up very closely with Dr. Caro on Monday for an appointment to ensure that she continues to improve. DISPOSITION: To home. DIET: Low fat, low salt. ACTIVITY: As tolerated. FOLLOWUP PLANS: 1. Please follow up with Dr. Caro 12/04/17 regarding acute hospitalization. 2. Please follow up with Dr. Bolanos (the patient asked to call for an appointment on Monday). 3. Please follow up for an INR on 12/04/17, with results forwarded to Dr. Caro. TIME SPENT: Approximately 60 minutes was spent in discharge of this patient, more than half the time was spent with the patient at the bedside reviewing the events leading up to this hospitalization, performing the physical examination, and reviewing my plan of care. NINA CURRAN NP [id number]/[facility] #: [id number] GUILLERMINA
== END 2017-12-02 12:40 | disposition home or self-care (01) | DRG 176 ==
LOC: ED 13:17 → MED 18:49 → OBSVTOIN 12-01 11:44
PROVIDERS: ADMIT Internal Medicine; ATTEND Internal Medicine
DX: I26.99 Other pulmonary embolism without acute cor pulmonale (principal); D69.6 Thrombocytopenia, unspecified; M06.9 Rheumatoid arthritis, unspecified; E83.42 Hypomagnesemia; E03.9 Hypothyroidism, unspecified; I10 Essential (primary) hypertension; I49.1 Atrial premature depolarization; K57.90 Diverticulosis of intestine, part unspecified, without perforation or abscess without bleeding; E87.6 Hypokalemia; R09.02 Hypoxemia; G89.29 Other chronic pain; M54.9 Dorsalgia, unspecified; J40 Bronchitis, not specified as acute or chronic; B34.9 Viral infection, unspecified; D50.9 Iron deficiency anemia, unspecified; Z98.51 Tubal ligation status; Z98.42 Cataract extraction status, left eye; Z98.41 Cataract extraction status, right eye; Z90.49 Acquired absence of other specified parts of digestive tract; Z87.891 Personal history of nicotine dependence; Z82.49 Family history of ischemic heart disease and other diseases of the circulatory system; Z86.711 Personal history of pulmonary embolism; Z83.3 Family history of diabetes mellitus; Z79.82 Long term (current) use of aspirin; Z79.01 Long term (current) use of anticoagulants; Z79.02 Long term (current) use of antithrombotics/antiplatelets; Z86.718 Personal history of other venous thrombosis and embolism; Z23 Encounter for immunization
CPT/HCPCS: 36415; 71045; 71275; 80048; 80053; 81003; 81015; 82607; 82668; 82728; 83540; 83550; 83605; 83735; 83921; 84155; 84165; 84484; 84520; 85025; 85045; 85379; 85610; 85730; 86334; 87040; 87086; 87502; 90732; 93005; 96374; 99223; 99284; A9270-GY; G0378; J1644; J1650; J3475

== ENCOUNTER 2017-12-04 23:27 | Inpatient (IN) | payer MEDICARE ==
[2017-12-05] MEDS ORDERED: Albuterol/Ipratropium NEB.SOL* Albuterol 2.5 MG/Ipratropium 0.5 MG 3 ML INH ONE (01:46)
[2017-12-05] MEDS ORDERED: Levofloxacin 750 MG IVPREMIX(* 750 MG/150 ML BAG IVPB ONE (01:47)
[2017-12-05] MEDS ORDERED: Acetaminophen TAB* 325 MG PO ONE (01:49)
[2017-12-05 02:36] LABS: Hematocrit 34 % (35-47); Hemoglobin 10.9 g/dl (12.0-16.0); Mean Corpuscular HGB Conc 33 g/dl (31-36); Mean Corpuscular Hemoglobin 27 pg (27-31); Mean Corpuscular Volume 82 fL (80-97); Mean Platelet Volume 9 um3 (7.4-10.4); Platelet Count 177 10^3/ul (150-450); Red Blood Count 4.08 10^6/ul (4.0-5.4); Red Cell Distribution Width 18 % (10.5-15); White Blood Count 14.8 10^3/ul (3.5-10.8)
[2017-12-05 02:49] LABS: INR 1.19 (0.77-1.02)
[2017-12-05] MEDS: Albuterol 2.5 MG/3 ML NEB.SOL* (0.083%) INH SCH ×2 (02:50→08:42)
[2017-12-05 02:52] LABS: EGFR Non-African American 64.9 (>60)
[2017-12-05] MEDS ORDERED: Digoxin IV* 0.5 MG/2 ML AMP (0.25 MG/ML) IV SLOW PU ONE (02:57)
[2017-12-05] MEDS ORDERED: Diltiazem IV* 5 MG/ML 5 ML VIAL (for loading dose/IV Push) (25 MG) IV SLOW PU ONE (02:58)
[2017-12-05] MEDS ORDERED: NS 0.9% 1000 ML* 1,000 ML IV ONE (02:59)
[2017-12-05] MEDS ORDERED: Potassium Chloride LIQUID* 20 MEQ PACKET PO ONE (03:01)
[2017-12-05] MEDS ORDERED: Magnesium Sulfate 2 GM IV* 2 GM/50 ML BAG IVPB ONE (03:02)
[2017-12-05 03:10] LABS: ABS Basophils 0 10^3/ul (0-0.2); ABS Eosinophils 0 10^3/ul (0-0.6); ABS Lymphocytes 1.4 10^3/ul (1.0-4.8); ABS Monocytes 1.6 10^3/ul (0-0.8); ABS Neutrophils 11.8 10^3/ul (1.5-7.7); ABS Nucleated RBC 0 10^3/ul; Eosinophil % 0 % (0-6); Lymphocyte % 9.6 % (25-47); Nucleated Red Blood Cells % 0
[2017-12-05] MEDS ORDERED: Diltiazem DRIP* 100 MG/100 ML ADDV.BAG IVPB ONE (03:34)
[2017-12-05] MEDS ORDERED: Diltiazem IV VIAL* 125 MG in NS 0.9% 100 ML* 100 ML IV ONE (04:00)
[2017-12-05] MEDS ORDERED: Metoprolol Tartrate TAB* 25 MG PO SCH (05:28)
[2017-12-05] MEDS ORDERED: NS 0.9% 1000 ML* 1,000 ML IV SCH ×2 (05:30→18:00)
[2017-12-05] MEDS ORDERED: Benzonatate CAP* 100 MG PO PRN (05:30)
[2017-12-05] MEDS ORDERED: Acetaminophen TAB* 325 MG PO PRN (05:30)
[2017-12-05] MEDS ORDERED: Metoprolol Tartrate TAB* 50 mg PO SCH ×2 (05:32→09:00)
--- NOTE | 2017-12-05 06:34 | ED ---
Myesha Wright Gabriel scribgarth for Quita Westfall MD on 12/05/17 at 0233 . Complex/Multi-Sys Presentation - HPI Summary HPI Summary: This patient is a 82 year old F [facility] accompanied by her daughter because the daughter believes her mother is disoriented. The patient rates the pain 0/10 in severity. Patients daughter reports diarrhea and cough. Patient denies SOB. Pt was discharged Monday from here after being admitted for a PE and bronchitis. She recently started taking Coumadin and Lovenox. Hx of PE. Daughter is concerned the patient took too much lovenox. - History Of Current Complaint Chief Complaint: EDUpperRespComplaint Time Seen by Provider: 12/05/17 01:08 Hx Obtained From: Patient Onset/Duration: Still Present Timing: Constant Severity Currently: Mild Severity Initially: Mild Associated Signs And Symptoms: Positive: Confusion, Other - diarrhea and cough - Allergies/Home Medications Allergies/Adverse Reactions: Allergies Allergy/AdvReac Type Severity Reaction Status Date / Time No Known Allergies Allergy Verified 12/04/17 23:41 PMH/Surg Hx/FS Hx/Imm Hx Endocrine/Hematology History: Reports: Hx Blood Transfusions, Hx Thyroid Disease Denies: Hx Diabetes Cardiovascular History: Reports: Hx Embolism, Hx Hypertension - on meds Denies: Hx Congestive Heart Failure Respiratory History: Reports: Hx Pulmonary Embolism, Hx Seasonal Allergies Denies: Hx Asthma, Hx Chronic Obstructive Pulmonary Disease (COPD) GI History: Reports: Hx Gall Bladder Disease Denies: Hx Ulcer History: Reports: Hx Kidney Infection Musculoskeletal History: Reports: Hx Arthritis, Hx Rheumatoid Arthritis, Hx Back Problems Denies: Hx Scoliosis Sensory History: Reports: Hx Cataracts - Removed bilateral Denies: Hx Contacts or Glasses, Hx Hearing Aid Opthamlomology History: Reports: Hx Cataracts - Removed bilateral Denies: Hx Contacts or Glasses Neurological History: Denies: Hx Headaches - Surgical History Surgery Procedure, Year, and Place: Tubal Ligation, Bilateral Cataracts surgery , Gallbladder. - Immunization History Date of Influenza Vaccine: Fall 2016 Infectious Disease History: No Infectious Disease History: Denies: Hx Hepatitis, Hx Human Immunodeficiency Virus (HIV), History Other Infectious Disease, Traveled Outside the [place] in Last 30 Days - Family History Known Family History: Positive: Hypertension - Social History Occupation: Retired Lives: Alone Alcohol Use: None Hx Substance Use: No Substance Use Type: Reports: None Hx Tobacco Use: Yes Smoking Status (MU): Former Smoker Review of Systems Positive: Cough Positive: Diarrhea Positive: Other - disoriented All Other Systems Reviewed And Are Negative: Yes Physical Exam - Summary Physical Exam Summary: VITAL SIGNS: Reviewed. GENERAL: Patient is a well-developed and elderly female who is lying comfortable in the stretcher. Patient is not in any acute respiratory distress. HEAD AND FACE: No signs of trauma. No ecchymosis, hematomas or skull depressions. No sinus tenderness. EYES: PERRLA, EOMI x 2, No injected conjunctiva, no nystagmus. EARS: Hearing grossly intact. Ear canals and tympanic membranes are within normal limits. MOUTH: Oropharynx within normal limits. NECK: Supple, trachea is midline, no adenopathy, no JVD, no carotid bruit, no c- spine tenderness, neck with full ROM. CHEST: Symmetric, no tenderness at palpation LUNGS: rhonchi present CVS: tachycardic, S1 and S2 present, no murmurs or gallops appreciated. ABDOMEN: Soft, non-tender. No signs of distention. No rebound no guarding, and no masses palpated. Bowel sounds are normal. EXTREMITIES: FROM in all major joints, bilateral LE edema NEURO: Alert and oriented x 3. No acute neurological deficits. Speech is normal and follows commands. SKIN: Dry and warm Triage Information Reviewed: Yes Vital Signs On Initial Exam: Initial Vitals Temp Pulse Resp BP Pulse Ox 98.6 F 93 20 123/71 93 12/04/17 23:38 12/04/17 23:38 12/04/17 23:38 12/04/17 23:38 12/04/17 23:38 Vital Signs Reviewed: Yes Diagnostics - Vital Signs Vital Signs Temp Pulse Resp BP Pulse Ox 12/05/17 01:30 103 25 149/63 94 12/05/17 01:08 108 23 90 12/05/17 01:06 131/70 12/04/17 23:38 98.6 F 93 20 123/71 93 - Laboratory Result Diagrams: 12/05/17 02:23 12/05/17 02:23 Lab Statement: Any lab studies that have been ordered have been reviewed, and results considered in the medical decision making process. - Radiology CXR Radiology Interpretation Completed By: ED Physician - no acute process - EKG 0133 Cardiac Rate: Tachycardia EKG Rhythm: Atrial Fibrillation - at 109 BPM Complex Multi-Symp Course/Dx Assessment/Plan: This patient is a 82 F year old F presenting [facility] accompanied by her daughter because the daughter believes her mother is disoriented. The patient rates the pain 0/10 in severity. Patients daughter reports diarrhea and cough. Patient denies SOB. Pt was discharged Monday from here after being admitted for a PE and bronchitis. She recently started taking Coumadin and Lovenox. Hx of PE. Daughter is concerned the patient took too much lovenox. An EKG reveals AFib at 109. CXR reveals, no acute process. Test results with no significant abnormalities. In the ED course the patient was given *see [facility]*. Dx new onset afib, PE, difficulty breathing. We discussed patient care with Dr. Gautam and they agreed to admit the patient. Patient will be admitted. The patient is agreeable with this plan. - Diagnoses Provider Diagnoses: New onset a-fib, Pulmonary embolism, Difficulty breathing - Physician Notifications Discussed Care Of Patient With: Maria Almonte Time Discussed With Above Provider: 03:00 Instructed by Provider To: Admit As Inpatient Discharge - Discharge Plan Condition: Fair Disposition: ADMITTED TO [facility] The documentation as recorded by the Myesha wagner Gabriel accurately reflects the service I personally performed and the decisions made by me, Quita Westfall MD.
[2017-12-05] MEDS ORDERED: Magnesium Sulfate 1 GM IV* 1 GM/100 ML BAG IV ONE (07:00)
--- NOTE | 2017-12-05 07:44 | RAD ---
INDICATION: Shortness of breath. COMPARISON: Comparison is made with a prior chest x-ray from November 30, [address] angiogram of the chest also from November 30, 2017. TECHNIQUE: A portable view of the chest was obtained. FINDINGS: The heart appears mildly enlarged and unchanged. There is a tortuous ectatic thoracic aorta which appears unchanged. The lungs are inflated and clear. No pleural effusion is seen. The right costophrenic angle is cut off on the film. IMPRESSION: NO EVIDENCE FOR ACUTE DISEASE.
[2017-12-05] MEDS: Aspirin EC Low Dose* 81 MG TAB.EC PO SCH (07:58)
[2017-12-05] MEDS: Levothyroxine TAB* 100 MCG TAB PO SCH (07:58)
[2017-12-05] MEDS: busPIRone TAB* 15 MG PO SCH ×2 (07:58→23:11)
[2017-12-05] MEDS: Metoprolol Tartrate TAB* 50 mg PO SCH ×2 (07:59→23:13)
[2017-12-05] MEDS: guaiFENesin ER TAB 600 MG PO SCH ×2 (08:00→23:12)
[2017-12-05] MEDS: Potassium Chlor TAB* 10 MEQ TAB.ER PO SCH (08:00)
[2017-12-05] MEDS: Enoxaparin(*) 80 MG/0.8 ML SYR SUBCUT SCH ×2 (08:00→23:15)
--- NOTE | 2017-12-05 08:36 | HP ---
CC: Dr. Caro; Dr. Bolanos * HISTORY AND PHYSICAL: DATE OF ADMISSION: 12/05/17 PRIMARY CARE PROVIDER: Dr. Caro. OUTPATIENT THERAPIST: Dr. Bolanos. CHIEF COMPLAINT: Feeling lousy. HISTORY OF PRESENT ILLNESS: Ms. Fernández is an 82-year-old female who has a history of a recently diagnosed pulmonary embolism on 11/30/17 when she presented to the emergency room with complaints of cough, congestion, and was found to be hypoxic. The patient has been doing Lovenox injections at home and taking Coumadin. During the prior hospitalization, the patient did have significant cough and congestion. The patient's daughter states that she left the hospital sounding very congested and bringing up copious amounts of sputum. The patient was not sent out on any antibiotics as she did not have an elevated white blood cell count nor did she have a fever after her initial fever on presentation to the emergency room on the . The patient still denies having any true fevers though she is not 100% sure about that. Her daughter states that she was somewhat lethargic on 12/04/17. The patient was very out of breath with ambulation. Because the patient felt so lousy, she represented to the emergency room. PAST MEDICAL HISTORY: 1. History of PE diagnosed 11/30/17, and approximately 10 years prior. It was recommended that the patient be on life-long anticoagulation; however, this was stopped in May 2017 when she had a GI bleed. 2. Hypertension. 3. Hypothyroidism. 4. Chronic back pain. PAST SURGICAL HISTORY: 1. Tubal ligation. 2. Cholecystectomy. 3. Bilateral cataract extractions. MEDICATIONS: 1. Lasix 20 mg p.o. daily. 2. Lovenox 80 mg subcutaneous q.12 hours. 3. Tessalon 200 mg p.o. q.8 hours p.r.n. cough. 4. Aspirin 81 mg p.o. daily. 5. Tylenol 650 mg p.o. q.4 hours p.r.n. pain. 6. Robitussin 5 mL p.o. q.6 hours p.r.n. cough. 7. BuSpar 15 mg p.o. b.i.d. 8. Amlodipine 2.5 mg p.o. daily. 9. Coumadin 4 mg p.o. daily. 10. Potassium chloride 10 mEq p.o. daily. 11. Metoprolol tartrate 50 mg p.o. b.i.d. 12. Levothyroxine 100 mcg p.o. daily. ALLERGIES: No known drug allergies. FAMILY HISTORY: The patient's parents both had a history of coronary artery disease. The patient has a daughter who has diabetes. SOCIAL HISTORY: The patient is a former smoker, she quit many years prior. She has had approximately [id number] history of smoking. She denies any alcohol. The patient's daughters are her healthcare proxies. REVIEW OF SYSTEMS: In addition to the HPI, the patient denies any issues with hematuria or hematochezia. She does not have any chest pain. The rest of the review of systems is as per HPI and otherwise negative. PHYSICAL EXAMINATION GENERAL: The patient is a well-developed elderly female, sitting up on the stretcher, sounding very congested with frequent coughs and very noisy breath sounds, but in no acute distress. VITAL SIGNS: Blood pressure 125/53, pulse 105, respirations 28, temp 98.6, O2 sat 96% on 4 L. HEENT: Pupils are equal and round. Extraocular muscles are intact. Oropharynx is clear. Oral mucosa is moist. The patient wears upper and lower dentures. NECK: There is no submandibular, cervical, or supraclavicular adenopathy. Thyroid is not enlarged. No thyroid nodules are noted. PULMONARY: Inspiratory breath sounds are clear though the patient has very noisy breath sounds in general. CARDIAC: Normal S1, S2. Irregularly irregular and mildly tachycardic. There is no lower extremity edema. ABDOMEN: Bowel sounds are present. Abdomen is soft, nontender and nondistended. MUSCULOSKELETAL: There is no cyanosis or clubbing of the digits. There is full active range of motion of all 4 extremities. SKIN: Warm and dry. There are no rashes. NEUROLOGIC: Cranial nerves II through XII are grossly intact. Sensation is intact to light touch throughout. Strength is 5/5 and symmetric in both upper and lower extremities bilaterally. PSYCH: The patient is alert. She is oriented x3. Affect appears appropriate. The patient is somewhat of a poor historian. DIAGNOSTIC STUDIES/LAB DATA: WBC 14.8, hemoglobin 10.9, hematocrit 34, platelets 177. INR 1.19. Sodium 128, potassium 2.9, chloride 92, CO2 25, BUN 12, creatinine 0.84, glucose 143, lactic acid 1.6. Calcium 9.1, bilirubin 0.8, AST 24, ALT 17, alk phos 76. Troponin 0.03. CRP 278.82. BNP 243. Albumin 3.8. ABG - 7.48/. EKG - one EKG appears to show likely atrial fibrillation; subsequent EKG appears to show multifocal atrial tachycardia. Chest x-ray - my interpretation reveals possible right lower lobe infiltrate; this does look changed from prior chest x-ray on 11/30/17. ASSESSMENT AND PLAN: Ms. Fernández is an 82-year-old female with a history of recently diagnosed pulmonary embolism, on Lovenox bridging to Coumadin, history of upper GI bleed, hypertension, and hypothyroidism who presents to the emergency room with continued complaints of chest congestion, cough, and shortness of breath and is also found to be in multifocal atrial tachycardia versus atrial fibrillation. 1. Upper respiratory tract infection. At this point, conservative therapy with cough suppressant and mucolytic alone has not improved the patient. Given the now elevated white blood cell count and markedly elevated CRP, I will go ahead and start the patient on antibiotics. She received a dose of Levaquin in the emergency room. The patient will continue on ceftriaxone and azithromycin starting tomorrow. I have added on a procalcitonin level. A sputum culture will be obtained as will urine for Legionella and Strep pneumoniae antigens. 2. Multifocal atrial tachycardia versus atrial fibrillation. At times, it appears that the patient has very clear P waves. On one EKG, it appears that she has three different P-wave morphologies indicating multifocal atrial tachycardia; however, on a different EKG, there are not clear P waves. I questioned if the patient may be having both multifocal atrial tachycardia and atrial fibrillation related to her newly-identified pulmonary embolism and possible pneumonia at the right base. The patient's heart rate has not been controlled. She did get started on diltiazem drip in the emergency room; however, multifocal atrial tachycardia responds better to either verapamil or beta jagruti. Given she is already on metoprolol 50 mg twice daily, I will increase this to 75 mg twice daily and wean off the diltiazem drip. If necessary, we can continue to make adjustments with the metoprolol or add an oral calcium channel jagruti such as verapamil. The patient is already being anticoagulated for her pulmonary embolism if this is atrial fibrillation. I will obtain an echocardiogram to evaluate for right heart strain. 3. Pulmonary embolism. The patient will continue on Lovenox 80 mg subcutaneous twice daily. I will increase her Coumadin to 5 mg p.o. daily as her INR only went from 1.07 up to 1.19 over the course of five days. We will need to watch her INR closely, especially after receiving Levaquin in the ER and receiving azithromycin starting tomorrow. 4. Hyponatremia. I suspect the patient is somewhat volume depleted given her acute illness. The patient will receive normal saline at 75 mL per hour for 1 L. We will need to repeat blood work tomorrow morning. 5. Hypokalemia. The patient is markedly hypokalemic with a potassium of 2.9. The patient received 40 mEq of potassium in the emergency room, and will receive an additional 40 mEq at approximately 9 a.m. Repeat electrolyte levels will be obtained this afternoon. Magnesium level has been added to labs from the emergency room, and the results of these are pending at this time. 6. Hypothyroidism. The patient will continue on her current dose of Synthroid. Her most recent TSH was 2.03 in December 2016. I will repeat this level now. For now, she will continue on her usual dose of Synthroid. 7. Hypertension. The patient's blood pressure is currently under good control. We will need to monitor this with the increase in her metoprolol dose. 8. DVT prophylaxis. According to the Adult Thrombosis Prophylaxis Risk Factor Assessment Guide, the patient has a total risk factor score of 7, making her high risk. She is already on full-dose Lovenox for her newly-identified pulmonary embolism. And this will act as her DVT prophylaxis. 9. Code status is full. TIME SPENT: 65 minutes were spent admitting this patient. [id number]/[facility] #: [id number] GUILLERMINA
[2017-12-05] MEDS ORDERED: amLODIPine TAB* 5 MG PO SCH (09:00)
[2017-12-05] MEDS ORDERED: Potassium Chlor TAB* 20 MEQ TAB.ER PO ONE (09:00)
--- NOTE | 2017-12-05 10:43 | PN ---
Subjective Date of Service: 12/05/17 Interval History: Ms. Fernández reports that she feels quite tired and has a harsh productive cough. She denies chest pain, nausea, or abdominal pain. She is tolerating oral intake well. Objective Active Medications: Acetaminophen (Tylenol Tab*) 650 mg PO Q4H PRN Albuterol (Ventolin 2.5 Mg/3 Ml Neb.Missy*) 2.5 mg INH Q4H PRN Aspirin (Aspirin Ec Low Dose*) 81 mg PO DAILY [facility] Benzonatate (Tessalon Cap*) 200 mg PO Q8H PRN Buspirone HCl (Buspar Tab *) 15 mg PO BID [facility] Enoxaparin Sodium (Lovenox(*)) 80 mg SUBCUT Q12HR [facility] Guaifenesin (Mucinex*) 600 mg PO BID [facility] Diltiazem HCl 125 mg/ Sodium (Chloride) 125 mls @ 5 mls/hr IV ED ONCE ONE Sodium Chloride (Ns 0.9% 1000 Ml*) 1,000 mls @ 75 mls/hr IV PER RATE [facility] Ceftriaxone Sodium 1 gm/ (Sodium Chloride) 50 mls @ 200 mls/hr IVPB Q24H [facility] Azithromycin 500 mg/ Sodium (Chloride) 250 mls @ 250 mls/hr IVPB Q24H [facility] Levothyroxine Sodium (Synthroid Tab*) 100 mcg PO DAILY@0600 [facility] Metoprolol Tartrate (Lopressor Tab*) 75 mg PO BID [facility] Potassium Chloride (Klor Con Er Tab*) 10 meq PO DAILY [facility] Warfarin Sodium (Coumadin Tab(*)) 5 mg PO DAILY@1700 [facility] Vital Signs: Temp Pulse Resp BP Pulse Ox 97.8 F 83 24 138/60 96 12/05/17 09:02 12/05/17 06:15 12/05/17 06:15 12/05/17 10:09 12/05/17 06:15 Oxygen Devices in Use Now: Nasal Cannula Appearance: Female sitting up in bed in NAD Eyes: No Scleral Icterus Ears/Nose/Mouth/Throat: Mucous Membranes Moist Neck: Trachea Midline Respiratory: Symmetrical Chest Expansion and Respiratory Effort, - - Rhonchi and wheezing bilaterally Cardiovascular: No Edema Abdominal: NL Sounds; No Tenderness; No Distention Lymphatic: No Cervical Adenopathy Extremities: No Edema Skin: No Rash or Ulcers Neurological: Alert and Oriented x 3, NL Muscle Strength and Tone Nutrition: Taking PO's Result Diagrams: 12/05/17 02:23 12/05/17 02:23 Assess/Plan/Problems-Billing Assessment: Ms. Fernández is an 82 yo female with a PMH of recent discharge from our hospital on 12/02/17 after being treated for bronchitis and PE who returns with influenza/ pneumonia. - Patient Problems (1) Influenza Comment: - Flu A positive. - Continue tamiflu. (2) Pneumonia Comment: - Chest xray without infiltrate but given severity and length of illness will continue abx for now. - Continue ceftriaxone, azithromycin. - Continue benzonatate, guiafenisin, albuterol prn. (3) Afib Comment: - Converted to NSR. - Question afib vs multifocal atrial tachycardia. Suspect related to respiratory illness. - Hypokalemia, potassium repleted, recheck in AM. - D/C diltiazem gtt. Continue increased dose metoprolol. - Continue lovenox with warfarin as per below for hx PE. (4) Hyponatremia Comment: - Suspect dehydration due to acute illness. - Continue IVF and recheck in AM. (5) Hx of pulmonary embolus Comment: - INR 1.19. - Continue lovenox with warfarin. (6) HTN (hypertension) Comment: - SBP 130. - Continue increased metoprolol. Hold amlodipine and furosemide during acute illness. (7) Depression Comment: - Continue buspar. (8) Hypothyroidism Comment: - Last TSH WNL 12/2016 - Continue levothyroxine (9) DVT prophylaxis Comment: - Lovenox bridge to Warfarin (10) Full code status Comment: Status and Disposition: Inpatient with expected LOS > 2 days. Anticipate discharge to home when medically stable.
--- NOTE | 2017-12-05 11:02 | ECHO ---
Patient: RIKY MORELOS [facility] Rec#: [id number] : 1935 Date: 12/05/2017 Age: 82y Height: 157.48 cm / 62.0 in Weight: 81.65 kg / 180.0 lbs Sex: F BSA: 1.83 Room#: 434 Admit Date#: 12/05/2017 Type: Inpatient Referring: Maria Almonte DO Reading: Oscar Watson MD Coremaker Machine: Mirlande Landis RDCS CC: Day Caro MD Transthoracic Echocardiogram Indication: Pulmonary Embolism BP: 142/74 HR: 68 Rhythm: NSR with PACs Findings History: Recent admission for pulmonary embolism, HTN, smoker. Technical Comments: The study quality is fair. The study is technically limited due to poor acoustic windows. The study is technically limited due to patient body habitus. Completed at 1040. Left Ventricle: The left ventricular chamber size is normal. Septal wall hypertrophy is observed. Global left ventricular wall motion and contractility are within normal limits. Left ventricular systolic function is at the lower limits of normal. The estimated ejection fraction is 50-55%. The assessment of diastolic function is non-diagnostic. Left Atrium: The left atrium is mildly dilated. Right Ventricle: The right ventricle wall thickness is moderately increased. The right ventricular cavity size is normal. The right ventricular global systolic function is hyperdynamic. Right Atrium: The right atrium is moderately dilated. Aortic Valve: The aortic valve is trileaflet. The aortic valve leaflets are mildly thickened. There is evidence of aortic sclerosis without stenosis. There is moderate aortic regurgitation. There is no evidence of aortic stenosis. Mitral Valve: There is mitral annular calcification. The mitral valve leaflets are mildly thickened. There is a trace of mitral regurgitation. There is no evidence of mitral stenosis. Tricuspid Valve: The tricuspid valve structure is not well visualized. There is trace tricuspid regurgitation. The right ventricular systolic pressure is estimated at 31 mmHg. There is no tricuspid stenosis. Pulmonic Valve: The pulmonic valve structure is not well visualized. There is no evidence of pulmonic regurgitation. There is no pulmonic stenosis. Pericardium: There is no significant pericardial effusion. A pericardial fat pad is visualized. Aorta: There is moderate dilatation of the ascending aorta.4.5 cm There is no dilatation of the aortic arch. There is mild dilatation of the aortic root. Pulmonary Artery: The main pulmonary artery is not well visualized. Venous: The inferior vena cava is dilated. There is less than 50% respiratory change in the inferior vena cava dimension. Conclusions Global left ventricular wall motion and contractility are within normal limits. Left ventricular systolic function is at the lower limits of normal. The estimated ejection fraction is 50-55%. The right ventricular global systolic function is hyperdynamic. There is moderate aortic regurgitation. There is a trace of mitral regurgitation. There is trace tricuspid regurgitation. The right ventricular systolic pressure is estimated at 31 mmHg. There is no significant pericardial effusion. There is moderate dilatation of the ascending aorta.4.5 cm Compared to study of 12/18/08, the LV function and valves are the same, The ascending aorta is more dilated (3.7 now 4.5 cm) Measurements Name Value Normal Range RVIDd (AP) 2D 2.7 cm (0.9 - 2.6) RVDdMajor (2D) 2.9 cm (2.2 - 4.4) RVAW (2D) 1.3 cm (0.2 - 0.5) RAd ISD 4CH 5.9 cm (3.4 - 4.9) RA (A4C)W 4.5 cm (2.9 - 4.6) IVSd (2D) 1.3 cm (0.6 - 1) LVPWd (2D) 1 cm (0.6 - 1) LVIDd (2D) 4.3 cm (3.6 - 5.4) LVIDs (2D) 2.8 cm - LV FS (2D) 36 % (25 - 45) Aortic Annulus 1.8 cm (1.4 - 2.6) Ao root diameter (2D) 3.8 cm (2.1 - 3.5) Ascending Ao 4.6 cm (2.1 - 3.4) Aortic arch 3.1 cm (1.8 - 3.4) LA dimension (AP) 2D 3.8 cm (2.3 - 3.8) LAd ISD 4CH 4.8 cm (2.9 - 5.3) LA ISD 4CH W 3.7 cm (2.5 - 4.5) Name Value Normal Range LA ESV SP 4CH (A/L) 68 ml - LA ESV SP 2CH (A/L) 54 ml - LA ESV BP (A/L) 68 ml - LA ESV BP (A/L) index 37 ml/m2 - LA ESV SP 4CH (MOD) 58 ml - LA ESV SP 2CH (MOD) 51 ml - Name Value Normal Range MV E-wave Vmax 0.68 m/sec - MV deceleration time 203.7 msec - MV A-wave Vmax 0.97 m/sec - MV E:A ratio 0.7 ratio - LV septal e' Vmax 0.04 m/sec - LV lateral e' Vmax 0.05 m/sec - LV E:e' septal ratio 17 ratio - LV E:e' lateral ratio 13.6 ratio - Name Value Normal Range AV Vmax 1.6 m/sec - AV VTI 31.89 cm - AV peak gradient 10.01 mmHg - AV mean gradient 5.79 mmHg - LVOT Vmax 1.1 m/sec - LVOT VTI 20.6 cm - LVOT peak gradient 4.68 mmHg - LVOT mean gradient 2.26 mmHg - AR PHT 484 msec - AR peak gradient 74.71 mmHg - TASIA Vmax 0.36 m/sec - Name Value Normal Range TR Vmax 2 m/sec - TR peak gradient 16 mmHg - RAP 15 mmHg - RVSP 31 mmHg - IVC diameter 2.3 cm - Name Value Normal Range PV Vmax 0.68 m/sec - PV peak gradient 1.91 mmHg -
[2017-12-05] MEDS: Oseltamivir CAP* 75 MG CAP PO SCH ×2 (12:56→23:11)
[2017-12-05] MEDS: Albuterol 2.5 MG/3 ML NEB.SOL* (0.083%) INH PRN (14:50)
[2017-12-05] MEDS: Warfarin TAB(*) 5 MG PO SCH (16:38)
[2017-12-05] MEDS ORDERED: Warfarin TAB(*) 2 MG PO SCH (17:00)
[2017-12-05] MEDS: Nystatin TOP POWDER* 15 GM BTL TOPICAL SCH (23:15)
[2017-12-06] MEDS: cefTRIAXone(*) 1 GM in NS 0.9% 50 ML* 50 ML IVPB SCH (05:59)
[2017-12-06 06:01] LABS: INR 1.21 (0.77-1.02)
[2017-12-06 06:05] LABS: EGFR Non-African American 97.6 (>60)
[2017-12-06 06:10] LABS: Hematocrit 30 % (35-47); Hemoglobin 9.6 g/dl (12.0-16.0); Mean Corpuscular HGB Conc 32 g/dl (31-36); Mean Corpuscular Hemoglobin 27 pg (27-31); Mean Corpuscular Volume 83 fL (80-97); Mean Platelet Volume 10 um3 (7.4-10.4); Platelet Count 159 10^3/ul (150-450); Red Blood Count 3.57 10^6/ul (4.0-5.4); Red Cell Distribution Width 18 % (10.5-15); White Blood Count 12.4 10^3/ul (3.5-10.8)
[2017-12-06] MEDS: Azithromycin IV(*) 500 MG in NS 0.9% 250 ML* 250 ML IVPB SCH (06:27)
[2017-12-06] MEDS: Levothyroxine TAB* 100 MCG TAB PO SCH (06:43)
[2017-12-06] MEDS: Nystatin TOP POWDER* 15 GM BTL TOPICAL SCH ×2 (07:41→21:29)
[2017-12-06] MEDS: Enoxaparin(*) 80 MG/0.8 ML SYR SUBCUT SCH ×2 (07:41→21:28)
[2017-12-06] MEDS: Aspirin EC Low Dose* 81 MG TAB.EC PO SCH (07:42)
[2017-12-06] MEDS: Oseltamivir CAP* 75 MG CAP PO SCH ×2 (07:42→21:26)
[2017-12-06] MEDS: guaiFENesin ER TAB 600 MG PO SCH ×2 (07:42→21:26)
[2017-12-06] MEDS: Metoprolol Tartrate TAB* 50 mg PO SCH ×2 (07:42→21:26)
[2017-12-06] MEDS: Potassium Chlor TAB* 10 MEQ TAB.ER PO SCH (07:42)
[2017-12-06] MEDS: busPIRone TAB* 15 MG PO SCH ×2 (07:42→21:25)
[2017-12-06] MEDS: Albuterol 2.5 MG/3 ML NEB.SOL* (0.083%) INH PRN ×2 (08:10→14:00)
[2017-12-06] MEDS: Warfarin TAB(*) 5 MG PO SCH (17:24)
--- NOTE | 2017-12-06 19:06 | PN ---
Subjective Date of Service: 12/06/17 Interval History: Patient has persistent SOB with wheezing and rhonchi. Patient has cough without productivity, denies hemoptysis. Denies fatigue. Denies F/C, N/V, abdominal pain , muscle aches, CP, dysuria, headache, URI symptoms, or other pain. Family History: Unchanged from Admission Social History: Unchanged from Admission Past Medical History: Unchanged from Admission Objective Active Medications: Acetaminophen (Tylenol Tab*) 650 mg PO Q4H PRN PRN Reason: FEVER/PAIN Albuterol (Ventolin 2.5 Mg/3 Ml Neb.Missy*) 2.5 mg INH Q4H PRN PRN Reason: SOB/WHEEZING Last Admin: 12/06/17 14:00 Dose: 2.5 mg Aspirin (Aspirin Ec Low Dose*) 81 mg PO DAILY [facility] Last Admin: 12/06/17 07:42 Dose: 81 mg Benzonatate (Tessalon Cap*) 200 mg PO Q8H PRN PRN Reason: COUGH Buspirone HCl (Buspar Tab *) 15 mg PO BID [facility] Last Admin: 12/06/17 07:42 Dose: 15 mg Enoxaparin Sodium (Lovenox(*)) 80 mg SUBCUT Q12HR [facility] Last Admin: 12/06/17 07:41 Dose: 80 mg Guaifenesin (Mucinex*) 600 mg PO BID [facility] Last Admin: 12/06/17 07:42 Dose: 600 mg Ceftriaxone Sodium 1 gm/ (Sodium Chloride) 50 mls @ 200 mls/hr IVPB Q24H [facility] Last Admin: 12/06/17 05:59 Dose: 200 mls/hr Azithromycin 500 mg/ Sodium (Chloride) 250 mls @ 250 mls/hr IVPB Q24H [facility] Last Admin: 12/06/17 06:27 Dose: 250 mls/hr Levothyroxine Sodium (Synthroid Tab*) 100 mcg PO DAILY@0600 [facility] Last Admin: 12/06/17 06:43 Dose: 100 mcg Metoprolol Tartrate (Lopressor Tab*) 75 mg PO BID [facility] Last Admin: 12/06/17 07:42 Dose: 75 mg Nystatin (Nystatin Top Powder*) 1 applic TOPICAL BID [facility] Last Admin: 12/06/17 07:41 Dose: 1 dose Oseltamivir Phosphate (Tamiflu Cap*) 75 mg PO BID [facility] Stop: 12/09/17 21:01 Last Admin: 12/06/17 07:42 Dose: 75 mg Potassium Chloride (Klor Con Er Tab*) 10 meq PO DAILY [facility] Last Admin: 12/06/17 07:42 Dose: 10 meq Warfarin Sodium (Coumadin Tab(*)) 5 mg PO DAILY@1700 [facility] PRN Reason: Protocol Last Admin: 12/06/17 17:24 Dose: 5 mg Vital Signs - 8 hr 12/06/17 12/06/17 12/06/17 12:00 14:01 15:27 Temperature 97.5 F 97.4 F Pulse Rate 85 98 79 Respiratory 20 73 18 Rate Blood Pressure 150/76 129/62 (mmHg) O2 Sat by Pulse 98 18 98 Oximetry Oxygen Devices in Use Now: Nasal Cannula - 2L Appearance: Patient is an 82yo female who appears stated age and is sitting in the bed in NAD. Eyes: No Scleral Icterus, PERRLA Ears/Nose/Mouth/Throat: NL Teeth, Lips, Gums, Clear Oropharnyx, Mucous Membranes Moist Neck: NL Appearance and Movements; NL JVP, No Thyroid Enlargement, Masses Respiratory: Symmetrical Chest Expansion and Respiratory Effort, - - Significant Rhonchi and Wheezes throughout. Cardiovascular: NL Sounds; No Murmurs; No JVD, RRR, No Edema Abdominal: NL Sounds; No Tenderness; No Distention, No Hepatosplenomegaly Lymphatic: No Cervical Adenopathy Extremities: No Edema, No Clubbing, Cyanosis Skin: No Rash or Ulcers, No Nodules or Sclerosis Neurological: Alert and Oriented x 3, NL Sensation, NL Muscle Strength and Tone , - - CN II-XII intact Result Diagrams: 12/06/17 05:32 12/06/17 05:32 Microbiology and Other Data: Microbiology 12/05/17 10:56 Gram Stain - Final Sputum 12/05/17 11:00 Legionella Urinary Antigen - Final Urine Negative Legionella Streptococcus pneumoniae Ag Screen - Final Negative S. pneumo Antigen 12/05/17 10:31 Influenza Types A,B Antigen (OCHOA) - Final Nasal Specimen received for Influenza A/B Molecular testing Assess/Plan/Problems-Billing Assessment: Ms. Fernández is an 82 yo female with a PMH of recent discharge from our hospital on 12/02/17 after being treated for bronchitis and PE who returns with influenza/ pneumonia. - Patient Problems (1) Influenza Current Visit: Yes Status: Acute Code(s): J11.1 - FLU DUE TO UNIDENTIFIED INFLUENZA VIRUS W OTH RESP MANIFEST SNOMED Code(s): 7049338 Comment: Flu A positive. Continue tamiflu. Down to 2L O2. Wears no O2 at home. (2) Pneumonia Current Visit: Yes Status: Acute Code(s): J18.9 - PNEUMONIA, UNSPECIFIED ORGANISM SNOMED Code(s): 509672166 Comment: Chest xray without infiltrate but given severity and length of illness will continue abx for now. Continue ceftriaxone, azithromycin. Continue benzonatate, guiafenisin, albuterol prn, ISB and flutter valve. (3) Afib Current Visit: Yes Status: Acute Code(s): I48.91 - UNSPECIFIED ATRIAL FIBRILLATION SNOMED Code(s): 79347300 Comment: Converted to NSR. Question afib vs multifocal atrial tachycardia. Suspect related to respiratory illness. Hypokalemia, potassium repleted, recheck in AM. Continue increased dose metoprolol. Continue lovenox with warfarin as per below for hx PE. (4) Hyponatremia Current Visit: Yes Status: Acute Code(s): E87.1 - HYPO-OSMOLALITY AND HYPONATREMIA SNOMED Code(s): 51586522 Comment: Suspect dehydration due to acute illness. Improved with IVF. (5) Depression Current Visit: Yes Status: Acute Code(s): F32.9 - MAJOR DEPRESSIVE DISORDER , SINGLE EPISODE, UNSPECIFIED SNOMED Code(s): 43271902 Comment: Continue buspar. (6) DVT prophylaxis Current Visit: No Status: Acute Code(s): VON5577 - SNOMED Code(s): 874587014 Comment: Lovenox bridge to Warfarin INR 1.2 (7) Hx of pulmonary embolus Current Visit: No Status: Acute Code(s): Z86.711 - PERSONAL HISTORY OF PULMONARY EMBOLISM SNOMED Code(s): 874146986 Comment: INR 1.21 Continue lovenox with warfarin. (8) History of GI bleed Current Visit: No Status: Chronic Code(s): Z87.19 - PERSONAL HISTORY OF OTHER DISEASES OF THE DIGESTIVE SYSTEM SNOMED Code(s): 245955434 Comment: May 2017 Continues to be anemic Will resune anticoagulation due to PE and monitor CBC. (9) Hypothyroidism Current Visit: No Status: Chronic Code(s): E03.9 - HYPOTHYROIDISM, UNSPECIFIED SNOMED Code(s): 03840715 Comment: Last TSH WNL 12/2016 Continue levothyroxine (10) Full code status Current Visit: No Status: Acute Code(s): Z78.9 - OTHER SPECIFIED HEALTH STATUS SNOMED Code(s): 829760086 Comment: Status and Disposition: Inpatient with expected LOS > 2 days. Anticipate discharge to home when medically stable.
[2017-12-07] MEDS: cefTRIAXone(*) 1 GM in NS 0.9% 50 ML* 50 ML IVPB SCH (05:17)
[2017-12-07] MEDS: Levothyroxine TAB* 100 MCG TAB PO SCH (05:18)
[2017-12-07] MEDS: Azithromycin IV(*) 500 MG in NS 0.9% 250 ML* 250 ML IVPB SCH (05:54)
[2017-12-07 07:50] LABS: ABS Basophils 0.1 10^3/ul (0-0.2); ABS Eosinophils 0 10^3/ul (0-0.6); ABS Lymphocytes 1.6 10^3/ul (1.0-4.8); ABS Monocytes 0.6 10^3/ul (0-0.8); ABS Neutrophils 6.9 10^3/ul (1.5-7.7); ABS Nucleated RBC 0 10^3/ul; Eosinophil % 0.2 % (0-6); Hematocrit 27 % (35-47); Hemoglobin 8.9 g/dl (12.0-16.0); Lymphocyte % 17.5 % (25-47); Mean Corpuscular HGB Conc 33 g/dl (31-36); Mean Corpuscular Hemoglobin 28 pg (27-31); Mean Corpuscular Volume 83 fL (80-97); Mean Platelet Volume 9 um3 (7.4-10.4); Nucleated Red Blood Cells % 0; Platelet Count 189 10^3/ul (150-450); Red Blood Count 3.25 10^6/ul (4.0-5.4); Red Cell Distribution Width 17 % (10.5-15); White Blood Count 9.1 10^3/ul (3.5-10.8)
[2017-12-07 07:56] LABS: INR 1.68 (0.77-1.02)
[2017-12-07 07:59] LABS: EGFR Non-African American 108.1 (>60)
[2017-12-07] MEDS: Potassium Chlor TAB* 10 MEQ TAB.ER PO SCH (09:07)
[2017-12-07] MEDS: Aspirin EC Low Dose* 81 MG TAB.EC PO SCH (09:07)
[2017-12-07] MEDS: guaiFENesin ER TAB 600 MG PO SCH ×2 (09:07→21:04)
[2017-12-07] MEDS: Oseltamivir CAP* 75 MG CAP PO SCH ×2 (09:07→21:04)
[2017-12-07] MEDS: Enoxaparin(*) 80 MG/0.8 ML SYR SUBCUT SCH ×2 (09:08→21:03)
[2017-12-07] MEDS: Metoprolol Tartrate TAB* 50 mg PO SCH ×2 (09:08→21:04)
[2017-12-07] MEDS: busPIRone TAB* 15 MG PO SCH ×2 (09:08→21:04)
[2017-12-07] MEDS: Nystatin TOP POWDER* 15 GM BTL TOPICAL SCH ×2 (09:10→21:07)
--- NOTE | 2017-12-07 13:57 | PN ---
Subjective Date of Service: 12/07/17 Interval History: Patient feeling much better, decreased SOB, no CP. Decreased audible wheezing. Denies N/V, Abdominal pain, had a formed BM, no diarrhea, dysuria, muscle aches or other pain. Patient able to ambulate to the bathroom independently and perform ADLs. Patient using ISB and flutter valve to good effect. Decreased cough and sputum production. Family History: Unchanged from Admission Social History: Unchanged from Admission Past Medical History: Unchanged from Admission Objective Active Medications: Acetaminophen (Tylenol Tab*) 650 mg PO Q4H PRN PRN Reason: FEVER/PAIN Albuterol (Ventolin 2.5 Mg/3 Ml Neb.Missy*) 2.5 mg INH Q4H PRN PRN Reason: SOB/WHEEZING Last Admin: 12/06/17 14:00 Dose: 2.5 mg Aspirin (Aspirin Ec Low Dose*) 81 mg PO DAILY [facility] Last Admin: 12/07/17 09:07 Dose: 81 mg Azithromycin (Zithromax Tab*) 250 mg PO DAILY [facility] Benzonatate (Tessalon Cap*) 200 mg PO Q8H PRN PRN Reason: COUGH Buspirone HCl (Buspar Tab *) 15 mg PO BID [facility] Last Admin: 12/07/17 09:08 Dose: 15 mg Enoxaparin Sodium (Lovenox(*)) 80 mg SUBCUT Q12HR [facility] Last Admin: 12/07/17 09:08 Dose: 80 mg Guaifenesin (Mucinex*) 600 mg PO BID [facility] Last Admin: 12/07/17 09:07 Dose: 600 mg Ceftriaxone Sodium 1 gm/ (Dextrose) 50 mls @ 200 mls/hr IVPB Q24H [facility] Levothyroxine Sodium (Synthroid Tab*) 100 mcg PO DAILY@0600 [facility] Last Admin: 12/07/17 05:18 Dose: 100 mcg Metoprolol Tartrate (Lopressor Tab*) 75 mg PO BID [facility] Last Admin: 12/07/17 09:08 Dose: 75 mg Nystatin (Nystatin Top Powder*) 1 applic TOPICAL BID [facility] Last Admin: 12/07/17 09:10 Dose: 1 dose Oseltamivir Phosphate (Tamiflu Cap*) 75 mg PO BID [facility] Stop: 12/09/17 21:01 Last Admin: 12/07/17 09:07 Dose: 75 mg Potassium Chloride (Klor Con Er Tab*) 10 meq PO DAILY [facility] Last Admin: 12/07/17 09:07 Dose: 10 meq Warfarin Sodium (Coumadin Tab(*)) 5 mg PO DAILY@1700 [facility] PRN Reason: Protocol Last Admin: 12/06/17 17:24 Dose: 5 mg Vital Signs - 8 hr 12/07/17 12/07/17 12/07/17 07:05 08:00 08:01 Temperature 98.3 F Pulse Rate 95 70 Respiratory 20 20 19 Rate Blood Pressure 136/62 (mmHg) O2 Sat by Pulse 100 98 Oximetry 12/07/17 11:17 Temperature 97.4 F Pulse Rate 71 Respiratory 24 Rate Blood Pressure 112/51 (mmHg) O2 Sat by Pulse 100 Oximetry Oxygen Devices in Use Now: None Appearance: Patient is an 82yo female who appears stated age and is sitting in the bed in [facility]. Eyes: No Scleral Icterus, PERRLA Ears/Nose/Mouth/Throat: NL Teeth, Lips, Gums, Clear Oropharnyx, Mucous Membranes Moist Neck: NL Appearance and Movements; NL JVP, Trachea Midline Respiratory: Symmetrical Chest Expansion and Respiratory Effort, - - Rhonchi, Expiratory wheezes and crackles present throughout. Decreased from previous exam. Cardiovascular: NL Sounds; No Murmurs; No JVD, RRR, No Edema Abdominal: NL Sounds; No Tenderness; No Distention, No Hepatosplenomegaly Lymphatic: No Cervical Adenopathy Extremities: No Edema, No Clubbing, Cyanosis Skin: No Rash or Ulcers, No Nodules or Sclerosis Neurological: Alert and Oriented x 3, NL Sensation, NL Muscle Strength and Tone Result Diagrams: 12/07/17 07:36 12/07/17 07:36 Microbiology and Other Data: Microbiology 12/05/17 10:56 Gram Stain - Final Sputum 12/05/17 11:00 Legionella Urinary Antigen - Final Urine Negative Legionella Streptococcus pneumoniae Ag Screen - Final Negative S. pneumo Antigen 12/05/17 10:31 Influenza Types A,B Antigen ([facility]CHOA) - Final Nasal Specimen received for Influenza A/B Molecular testing Assess/Plan/Problems-Billing Assessment: Ms. Fernández is an 82 yo female with a PMH of recent discharge from our hospital on 12/02/17 after being treated for bronchitis and PE who returns with influenza/ pneumonia. - Patient Problems (1) Influenza Current Visit: Yes Status: Acute Code(s): J11.1 - FLU DUE TO UNIDENTIFIED INFLUENZA VIRUS W OTH RESP MANIFEST SNOMED Code(s): 9882045 Comment: Flu A positive. Continue tamiflu. Weaned off of O2. Improved respiratory exam. (2) Pneumonia Current Visit: Yes Status: Acute Code(s): J18.9 - PNEUMONIA, UNSPECIFIED ORGANISM SNOMED Code(s): 425410067 Comment: Chest xray without infiltrate but given severity and length of illness will continue abx for now. Continue ceftriaxone, azithromycin. Continue benzonatate, guiafenisin, albuterol prn, ISB and flutter valve. (3) Afib Current Visit: Yes Status: Acute Code(s): I48.91 - UNSPECIFIED ATRIAL FIBRILLATION SNOMED Code(s): 26068837 Comment: Converted to NSR. Question afib vs multifocal atrial tachycardia. Suspect related to respiratory illness. Hypokalemia, potassium repleted, recheck in AM. Continue increased dose metoprolol. Continue lovenox with warfarin as per below for hx PE. (4) Hyponatremia Current Visit: Yes Status: Acute Code(s): E87.1 - HYPO-OSMOLALITY AND HYPONATREMIA SNOMED Code(s): 12226022 Comment: Suspect dehydration due to acute illness. Improved with IVF. (5) Depression Current Visit: Yes Status: Acute Code(s): F32.9 - MAJOR DEPRESSIVE DISORDER , SINGLE EPISODE, UNSPECIFIED SNOMED Code(s): 66427845 Comment: Continue buspar. (6) DVT prophylaxis Current Visit: No Status: Acute Code(s): DKD5199 - SNOMED Code(s): 430726708 Comment: Lovenox bridge to Warfarin INR 1.68 (7) Hx of pulmonary embolus Current Visit: No Status: Acute Code(s): Z86.711 - PERSONAL HISTORY OF PULMONARY EMBOLISM SNOMED Code(s): 434206649 Comment: INR 1.68 Continue lovenox with warfarin. (8) History of GI bleed Current Visit: No Status: Chronic Code(s): Z87.19 - PERSONAL HISTORY OF OTHER DISEASES OF THE DIGESTIVE SYSTEM SNOMED Code(s): 169685865 Comment: May 2017 Continues to be anemic Will resume anticoagulation due to PE and monitor CBC. No Melena or hematochezia. (9) Hypothyroidism Current Visit: No Status: Chronic Code(s): E03.9 - HYPOTHYROIDISM, UNSPECIFIED SNOMED Code(s): 65518296 Comment: Last TSH WNL 12/2016 Continue levothyroxine (10) Full code status Current Visit: No Status: Acute Code(s): Z78.9 - OTHER SPECIFIED HEALTH STATUS SNOMED Code(s): 393765166 Comment: Status and Disposition: Inpatient with expected LOS > 2 days. Anticipate discharge to home when medically stable.
[2017-12-07] MEDS: Warfarin TAB(*) 5 MG PO SCH (16:37)
[2017-12-08] MEDS: Levothyroxine TAB* 100 MCG TAB PO SCH (05:15)
[2017-12-08] MEDS ORDERED: cefTRIAXone(*) 1 GM in D5W 50 ML BAG* 50 ML IVPB SCH (06:00)
[2017-12-08 07:33] LABS: ABS Basophils 0.1 10^3/ul (0-0.2); ABS Eosinophils 0 10^3/ul (0-0.6); ABS Lymphocytes 1.8 10^3/ul (1.0-4.8); ABS Neutrophils 8.2 10^3/ul (1.5-7.7); ABS Nucleated RBC 0 10^3/ul; Eosinophil % 0.2 % (0-6); Hematocrit 30 % (35-47); Hemoglobin 9.6 g/dl (12.0-16.0); Lymphocyte % 16.1 % (25-47); Mean Corpuscular HGB Conc 32 g/dl (31-36); Mean Corpuscular Hemoglobin 27 pg (27-31); Mean Corpuscular Volume 83 fL (80-97); Mean Platelet Volume 9 um3 (7.4-10.4); Nucleated Red Blood Cells % 0; Platelet Count 293 10^3/ul (150-450); Red Blood Count 3.63 10^6/ul (4.0-5.4); Red Cell Distribution Width 17 % (10.5-15)
[2017-12-08 07:44] LABS: EGFR Non-African American 88.8 (>60)
[2017-12-08 07:52] LABS: INR 2.61 (0.77-1.02)
[2017-12-08 08:30] VITALS: BP 163/73
[2017-12-08] MEDS ORDERED: Loperamide CAP* 2 MG PO PRN (08:36)
[2017-12-08] MEDS: Metoprolol Tartrate TAB* 50 mg PO SCH (08:38)
[2017-12-08] MEDS: Potassium Chlor TAB* 10 MEQ TAB.ER PO SCH (08:39)
[2017-12-08] MEDS: Aspirin EC Low Dose* 81 MG TAB.EC PO SCH (08:39)
[2017-12-08] MEDS: guaiFENesin ER TAB 600 MG PO SCH (08:39)
[2017-12-08] MEDS: Enoxaparin(*) 80 MG/0.8 ML SYR SUBCUT SCH (08:39)
[2017-12-08] MEDS: busPIRone TAB* 15 MG PO SCH (08:39)
[2017-12-08] MEDS: Oseltamivir CAP* 75 MG CAP PO SCH (08:39)
[2017-12-08] MEDS: Nystatin TOP POWDER* 15 GM BTL TOPICAL SCH (08:40)
[2017-12-08] MEDS ORDERED: Azithromycin TAB* 250 MG PO SCH (09:00)
--- NOTE | 2017-12-10 03:50 | DS ---
CC: Dr. Caro; Dr. Bolanos * DISCHARGE SUMMARY: DATE OF ADMISSION: 12/05/17 DATE OF DISCHARGE: 12/08/17 PRIMARY CARE PROVIDER: Dr. Caro. BOLT SORTER: Dr. Bolanos. MY ATTENDING WHILE IN THE HOSPITAL: Cora Dumont DO.* (DICTATED BY VICKI DERAS) PRIMARY DISCHARGE DIAGNOSES: Influenza A, probable bacterial pneumonia, chaotic atrial tachycardia. SECONDARY DISCHARGE DIAGNOSES: 1. History of pulmonary embolism. 2. Multiple hypertension. 3. Hyperlipidemia. 4. Hypothyroidism. 5. Chronic back pain. 6. History of gastrointestinal bleed. STUDIES DONE WHILE IN THE HOSPITAL: Electrocardiogram on 12/05/17 shows irregularly irregular rhythm, no discrete P waves, rate of 114, QTc 467, normal axis, intraventricular conduction delay, PVC. No other abnormalities. Repeat EKG from 12/05/17 shows irregular regular rhythm, multiple P wave morphologies, rate of 109, no other significant changes from previous exam. EKG from shows normal sinus rhythm with PACs, QTc of 422. No other abnormalities. No hypertrophy or enlargement. Chest x-ray from 12/05/17 shows no evidence for acute disease. Transthoracic echocardiogram from 12/05/17 read as global left ventricular wall motion contractility within normal limits. Left ventricular systolic function within normal limits. Estimated ejection fraction 50% to 55% , right ventricular global systolic function is hyperdynamic. There is moderate aortic regurgitation and trace mitral regurgitation, tricuspid regurgitation. The right ventricular systolic pressure estimated at 31 mmHg. No significant pericardial effusion. Mild dilatation of the extending aorta. Compared to previous study, the ascending aorta is more dilated. MEDICATIONS AT THE TIME OF DISCHARGE: 1. Furosemide 20 mg p.o. daily. 2. Levothyroxine 100 mcg p.o. daily. 3. Amlodipine 2.5 mg p.o. daily. 4. Aspirin 81 mg p.o. daily. 5. BuSpar 50 mg b.i.d. 6. Potassium chloride 10 mEq p.o. daily. 7. Tylenol 650 mg p.o. q.4 hours as needed. 8. Tessalon 200 mg p.o. q.8 hours as needed. 9. Warfarin 4 mg p.o. q.p.m. 10. Azithromycin 250 mg p.o. daily x2. 11. Cefpodoxime 200 mg p.o. q.12 hours x22. 12. Mucinex 600 mg p.o. b.i.d. x28. 13. Imodium 2 mg p.o. p.r.n. 14. Metoprolol tartrate 75 mg p.o. b.i.d. 15. Tamiflu 75 mg p.o. b.i.d. x3. New medications at discharge: 1. Zithromax. 2. Cefpodoxime. 3. Guaifenesin. 4. Imodium. 5. Metoprolol. 6. Oseltamivir. Medications discontinued at discharge: 1. Lovenox 8 mg subcutaneous q.12 hours. 2. Guaifenesin liquid 5 mL p.o. q.6 hours as needed. 3. Metoprolol tartrate 50 mg p.o. daily. HOSPITAL COURSE: This is a brief summary of the patient's presentation. For more details, please see the history and physical from Dr. Maria Almonte on 04/16. In brief, the patient is an 82-year-old female with past medical history significant for the above, who was recently hospitalized at this institution from 11/30/17 to 12/03/17. Patient during her admission has significant cough and congestion and at her discharge has continued to progress. Patient was not started on antibiotics. Patient denies fevers, chills, or other complaints besides shortness of breath and ambulation. Patient was found to be in atrial fibrillation or chaotic atrial tachycardia as indicated by above read EKGs. Patient's chest x- ray showed no disease but patient had an elevated CRP at 278.82 and an elevated procalcitonin at 0.4 and positive Influenza. Patient was started on Tamiflu, Zithromax, and ceftriaxone. Patient was placed on needed initially 4 L of oxygen to maintain her saturation above 90%. Patient was initially tachycardic and started on diltiazem. Patient is converted to normal sinus rhythm on the morning of 12/05/17. Patient's Cardizem drip was discontinued at this time. Patient's metoprolol was increased as above. Patient's blood pressure is stable throughout her hospitalization. Patient continued to feel "lousy" and have a poor respiratory exam, which was improved somewhat with albuterol administration. On 12/06/17, patient had an echo, which was read as above. Patient on admission had mild respiratory alkalosis, low pCO2 at 34, low oxygen at 76, and on 4 of oxygen. Other laboratory abnormalities at admission, potassium 2.9, sodium 128. BNP 243. Patient's INR was also 1.19 at admission despite being having been on 4 mg of Warfarin daily for 4 days. Patient was fully anticoagulated with Lovenox for bridging, which was continued and her warfarin dose increased to 5 mg daily. Patient improved over the course of the day on 12/06 and 12/07. Patient had no new symptoms such as chest pain, palpitations, dizziness. Patient was able to ambulate independently in her room and felt subjectively significantly better. Patient had elevated temperatures during her hospitalization. Patient was able to be weaned off oxygen in the morning of 12/07/17, though her respiratory exam remained poor with significant rhonchi and wheezes. Patient's wheeze improved with guaifenesin, flutter valve, and incentive spirometry for pulmonary toilet. Patient had no other complaints, remained in sinus rhythm and was able to be discharged in the morning of 12/08/17 on continued antibiotics, oseltamivir, Tessalon, guaifenesin, and increased metoprolol as above. Patient's INR on her day of discharge was 2.61, so her Lovenox was discontinued and she was sent home on her previous dose of 4 mg of warfarin daily as her INR increased from 2.8 to 2.9 with a full 1 point. She should have her INR rechecked on 12/11/17, the order for which has been already written and patient should followup with the result with her primary care provider and shopping investigator. This was discussed with patient and she stated understanding. PHYSICAL EXAM ON THE DAY OF DISCHARGE: General: Patient is an 82-year-old female who appears stated age and sitting comfortably in bed, in no acute distress. Vital signs at the time of discharge, temperature 98.4, respiratory rate 20, heart rate 94, oxygenation saturation 98% on room air, blood pressure 163/73. HEENT: Head: Normocephalic, atraumatic. Sclerae anicteric. No conjunctival injection. Nasal mucosa moist. Oral mucosa moist. Neck: Supple , nontender. No lymphadenopathy. No carotid bruit auscultated. Cardiac: Regular rate and rhythm. No clicks, murmurs, gallops, or rubs. Pulses 2+ in bilateral dorsalis pedis, posterior tibialis, and radial areas. Respiratory: Mild rhonchi and wheezes throughout. No significant improvement from previous exam. Good air exchange bilaterally. No other adventitious lung sounds. Abdomen: Soft, nontender, nondistended. Bowel sounds present. Normoactive in all 4 quadrants. No abdominal bruit is auscultated. No hepatosplenomegaly. Genitourinary: No suprapubic tenderness or CVA tenderness. Skin: Clean, dry, and intact. No rash. Neuro: Cranial nerves II through XII intact. Alert and oriented x3. No focal deficits. Psychiatric: Pleasant and cooperative. LABORATORY DATA ON THE DAY OF DISCHARGE: White blood cell count 11.0, hemoglobin 9.6, platelet count 293. INR 2.61. Sodium 132, potassium 3.8, chloride 99, carbon dioxide 26, anion gap 7, BUN 8, creatinine 0.64, glucose 122 , calcium 8.9, magnesium 2.0. Other pertinent laboratory values from admission , CRP 278.82, BNP 243, procalcitonin 0.4, sodium 128, potassium 2.9 at admission. White blood cell count 14.8 at admission. DISCHARGE PLAN: The patient will be discharged to home to continue the recuperation from her Influenza and probable bacterial pneumonia. Patient's A- fib and chaotic atrial tachycardia were likely related to her respiratory illness and had resolved at the time of discharge, however, the patient should discuss with her primary care provider a longer term Holter monitor to see if she is going in and out of atrial fibrillation. The patient is already anticoagulated for her pulmonary embolism with an INR goal of 2 to 3. Patient was 2.62 on the day of discharge due to large increase on the day previous day to day of discharge. Patient's warfarin was decreased from 5 to 4 and this should be readjusted as needed with patient's ongoing visits to her primary care provider and shopping investigator. Patient should follow up with her primary care provider within one week for general medical management and her INR. Patient should follow up with Dr. Bolanos, her shopping investigator, when available. Patient missed an appointment with him on 12/06/17, according to the patient. Patient should return to the hospital for significant decrease in her respiratory status, chest pain, shortness of breath, palpitations, syncope or presyncope or other alarming symptoms. Patient should gauge activity as tolerated. The patient should not get in strenuous activity while still recuperating from her illness. Patient should take her antibiotics and Tamiflu as prescribed. Patient is to use Tessalon, guaifenesin, incentive spirometry and flutter valve as needed for symptomatic management. TIME SPENT: Approximately 60 minutes was spent on this discharge, 30 of which was spent [id number] with the patient obtaining history and physical and discussing treatment plan. VICKI DERAS [id number]/[facility] #: [id number] GUILLERMINA
== END 2017-12-08 12:45 | disposition home or self-care (01) | DRG 308 ==
LOC: ED 23:27 → MEDTELE 12-05 05:28
PROVIDERS: ADMIT Hospitalist; ATTEND Internal Medicine
DX: I47.1 Supraventricular tachycardia (principal); J15.9 Unspecified bacterial pneumonia; J11.00 Influenza due to unidentified influenza virus with unspecified type of pneumonia; E87.3 Alkalosis; I48.91 Unspecified atrial fibrillation; M06.9 Rheumatoid arthritis, unspecified; E87.1 Hypo-osmolality and hyponatremia; I10 Essential (primary) hypertension; E78.5 Hyperlipidemia, unspecified; E03.9 Hypothyroidism, unspecified; G89.29 Other chronic pain; E87.6 Hypokalemia; M19.90 Unspecified osteoarthritis, unspecified site; F32.9 Major depressive disorder, single episode, unspecified; M54.9 Dorsalgia, unspecified; I08.0 Rheumatic disorders of both mitral and aortic valves; I77.819 Aortic ectasia, unspecified site; Z90.49 Acquired absence of other specified parts of digestive tract; Z98.51 Tubal ligation status; Z86.711 Personal history of pulmonary embolism; Z98.42 Cataract extraction status, left eye; Z98.41 Cataract extraction status, right eye; Z82.49 Family history of ischemic heart disease and other diseases of the circulatory system; Z83.3 Family history of diabetes mellitus; Z87.891 Personal history of nicotine dependence
CPT/HCPCS: 36415; 71045; 80048; 80053; 82803; 83605; 83735; 83880; 84145; 84439; 84443; 84484; 85025; 85027; 85610; 85730; 86140; 87040; 87070; 87077; 87205; 87502; 87899; 93005; 93306; 94640; 99283; A9270-GY; J0456; J0696; J1160; J1650; J3475

== ENCOUNTER 2017-12-23 10:11 | Emergency (ER) | payer MEDICARE ==
[2017-12-23 10:32] VITALS: BP 146/82
--- NOTE | 2017-12-23 11:11 | UC ---
Abdominal Pain Female HPI - HPI Summary HPI Summary: recently on Vantan and zithromax for pneumonia and was as well hospitalized. Today patient had diarrhea with BRB - History of Current Complaint Chief Complaint: UCAbdominalPain Stated Complaint: ABDOMINAL COMPLAINT Time Seen by Provider: 12/23/17 10:52 Hx Obtained From: Patient ?: No Onset/Duration: Sudden Onset Timing: Constant Severity Currently: Mild Pain Intensity: 0 Pain Scale Used: 0-10 Numeric Radiates: No Aggravating Factor(s): Nothing Alleviating Factor(s): Nothing Associated Signs and Symptoms: Positive: Diarrhea Allergies/Adverse Reactions: Allergies Allergy/AdvReac Type Severity Reaction Status Date / Time No Known Allergies Allergy Verified 12/23/17 10:32 Home Medications: Home Medications Warfarin TAB(*) [Coumadin TAB(*)] 3 mg PO 1700 12/23/17 [History Confirmed 12/23] PMH/Surg Hx/FS Hx/Imm Hx Previously Healthy: No Endocrine History: Hypothyroidism Cardiovascular History: Hypertension, Congestive Heart Failure - Surgical History Surgical History: Yes Surgery Procedure, Year, and Place: Tubal Ligation, Bilateral Cataracts surgery , Gallbladder. - Family History Known Family History: Positive: Hypertension - Social History Occupation: Retired Lives: With Family Alcohol Use: None Substance Use Type: None Smoking Status (MU): Former Smoker - Immunization History Most Recent Influenza Vaccination: Fall 2016 Most Recent Pneumonia Vaccination: Last admission Review of Systems Constitutional: Negative Skin: Negative Eyes: Negative ENT: Negative Respiratory: Negative Cardiovascular: Negative Gastrointestinal: Diarrhea - with BRB Genitourinary: Negative Motor: Negative Neurovascular: Negative Musculoskeletal: Negative Neurological: Negative Psychological: Negative Is Patient Immunocompromised?: No All Other Systems Reviewed And Are Negative: Yes Physical Exam Triage Information Reviewed: Yes Appearance: No Pain Distress, Well-Nourished, Ill-Appearing - pale, pale mucous membranes Vital Signs: Initial Vital Signs Temp 98.3 F 12/23/17 10:28 Pulse 104 12/23/17 10:28 Resp 18 12/23/17 10:28 BP 146/82 12/23/17 10:28 Pulse Ox 98 12/23/17 10:28 Vital Signs Reviewed: Yes Eye Exam: Normal Eyes: Positive: Conjunctiva Clear ENT Exam: Normal ENT: Positive: Normal ENT inspection, Hearing grossly normal, Pharynx normal, TMs normal, Uvula midline. Negative: Nasal congestion, Nasal drainage, Tonsillar swelling, Tonsillar exudate, Trismus, Muffled voice, Hoarse voice, Sinus tenderness Dental Exam: Normal Neck exam: Normal Neck: Positive: Supple, Nontender, No Lymphadenopathy Respiratory Exam: Normal Respiratory: Positive: Chest non-tender, Lungs clear, Normal breath sounds, No respiratory distress, No accessory muscle use Cardiovascular Exam: Normal Cardiovascular: Positive: No Murmur, Pulses Normal, Brisk Capillary Refill, Tachycardia Abdominal Exam: Normal Abdomen Description: Positive: Nontender, No Organomegaly, Soft. Negative: CVA Tenderness (R), CVA Tenderness (L) Bowel Sounds: Positive: Present Musculoskeletal Exam: Normal Musculoskeletal: Positive: Strength Intact, ROM Intact, No Edema Neurological Exam: Normal Neurological: Positive: Alert, Muscle Tone Normal Psychological Exam: Normal Skin Exam: Normal Abd Pain Female Course/Dx - Course Course Of Treatment: NPO, To ED with daughter driving - Differential Dx/Diagnosis Provider Diagnoses: BRBPR Discharge - Discharge Plan Condition: Stable Disposition: HOME Discharge Disposition Comment: to hospital with daughter driving Patient Education Materials: Rectal Bleeding (ED) Referrals: Day Caro MD [Primary Care Provider] - 1 Week Additional Instructions: Please go directly to the emergency department for evaluation of rectal bleeding
== END 2017-12-23 11:20 | disposition home or self-care (01) ==
LOC: UCEAST 10:11
DX: K62.5 Hemorrhage of anus and rectum (principal); Z87.891 Personal history of nicotine dependence; E03.9 Hypothyroidism, unspecified; I50.9 Heart failure, unspecified; I10 Essential (primary) hypertension; Z79.01 Long term (current) use of anticoagulants
CPT/HCPCS: 99212; G0463

== ENCOUNTER 2017-12-23 11:37 | Observation (INO) | payer MEDICARE ==
[2017-12-23 13:28] LABS: INR 2.33 (0.77-1.02)
[2017-12-23 13:32] LABS: ABS Basophils 0.1 10^3/ul (0-0.2); ABS Eosinophils 0.1 10^3/ul (0-0.6); ABS Lymphocytes 1.4 10^3/ul (1.0-4.8); ABS Monocytes 0.4 10^3/ul (0-0.8); ABS Neutrophils 4.4 10^3/ul (1.5-7.7); ABS Nucleated RBC 0 10^3/ul; Eosinophil % 0.9 % (0-6); Hematocrit 32 % (35-47); Hemoglobin 10.4 g/dl (12.0-16.0); Lymphocyte % 22.4 % (25-47); Mean Corpuscular HGB Conc 32 g/dl (31-36); Mean Corpuscular Hemoglobin 28 pg (27-31); Mean Corpuscular Volume 86 fL (80-97); Mean Platelet Volume 8 um3 (7.4-10.4); Nucleated Red Blood Cells % 0.1; Platelet Count 272 10^3/ul (150-450); Red Blood Count 3.77 10^6/ul (4.0-5.4); Red Cell Distribution Width 19 % (10.5-15); White Blood Count 6.4 10^3/ul (3.5-10.8)
[2017-12-23 13:34] LABS: EGFR Non-African American 69.7 (>60)
--- NOTE | 2017-12-23 15:08 | ED ---
Serenity Wright Nilda, scribed for Quita Westfall MD on 12/23/17 at 1300 . GI/ HPI - HPI Summary HPI Summary: This patient is an 82 year old F presenting to [facility] accompanied by friend with a chief complaint of bright red blood with diarrhea this morning. The patient rates the pain 0/10 in severity. Symptoms aggravated and alleviated by nothing. Patient reports constant bleeding without bowel movement, but denies dizziness. She states that she found blood on the toilet paper but is unsure about how much blood was in the toilet. Medications include Coumadin for past PE. - History of Current Complaint Chief Complaint: EDGIBleed Time Seen by Provider: 12/23/17 12:44 Stated Complaint: BLOODY STOOL-CC TRANSFER Hx Obtained From: Patient Onset/Duration: Started Minutes Ago, Still Present Timing: Constant Severity: Mild Vaginal Bleeding Description: Bright Red Pain Intensity: 0 Associated Signs and Symptoms: Positive: Other: - moderate bright red rectal bleeding with diarrhea, positive bleeding without bowel movement; negative dizziness Aggravating Factor(s): Nothing Alleviating Factor(s): Nothing - Additional Pertinent History Primary Care Physician: [id number] - Allergy/Home Medications Allergies/Adverse Reactions: Allergies Allergy/AdvReac Type Severity Reaction Status Date / Time No Known Allergies Allergy Verified 12/23/17 10:32 PMH/Surg Hx/FS Hx/Imm Hx Endocrine/Hematology History: Reports: Hx Blood Transfusions, Hx Thyroid Disease Denies: Hx Diabetes Cardiovascular History: Reports: Hx Embolism, Hx Hypertension Denies: Hx Congestive Heart Failure Respiratory History: Reports: Hx Pulmonary Embolism, Hx Seasonal Allergies Denies: Hx Asthma, Hx Chronic Obstructive Pulmonary Disease (COPD) GI History: Reports: Hx Gall Bladder Disease Denies: Hx Ulcer History: Reports: Hx Kidney Infection Musculoskeletal History: Reports: Hx Arthritis, Hx Rheumatoid Arthritis, Hx Back Problems Denies: Hx Scoliosis Sensory History: Reports: Hx Cataracts - Removed bilateral, Hx Contacts or Glasses - [place], Hx Hearing Problem - [place], no hearing aids Denies: Hx Hearing Aid Opthamlomology History: Reports: Hx Cataracts - Removed bilateral, Hx Contacts or Glasses - Reading Neurological History: Denies: Hx Headaches - Surgical History Surgery Procedure, Year, and Place: Tubal Ligation, Bilateral Cataracts surgery , Gallbladder. - Immunization History Date of Influenza Vaccine: Fall 2016 Infectious Disease History: No Infectious Disease History: Denies: Hx Hepatitis, Hx Human Immunodeficiency Virus (HIV), History Other Infectious Disease, Traveled Outside the [place] in Last 30 Days - Family History Known Family History: Positive: Hypertension - Social History Alcohol Use: None Hx Substance Use: No Substance Use Type: Reports: None Hx Tobacco Use: Yes Smoking Status (MU): Former Smoker Review of Systems Positive: Diarrhea, Other - rectal bleed, constant without bowel movement Neurological: Other - negative dizziness All Other Systems Reviewed And Are Negative: Yes Physical Exam - Summary Physical Exam Summary: VITAL SIGNS: Reviewed. GENERAL: Patient is a morbidly obese female who is lying comfortable in the stretcher. Patient is not in any acute respiratory distress. HEAD AND FACE: No signs of trauma. No ecchymosis, hematomas or skull depressions. No sinus tenderness. EYES: PERRLA, EOMI x 2, No injected conjunctiva, no nystagmus. EARS: Hearing grossly intact. Ear canals and tympanic membranes are within normal limits. MOUTH: Oropharynx within normal limits. NECK: Supple, trachea is midline, no adenopathy, no JVD, no carotid bruit, no c- spine tenderness, neck with full ROM. CHEST: Symmetric, no tenderness at palpation LUNGS: Clear to auscultation bilaterally. No wheezing or crackles. CVS: Regular rate and rhythm, S1 and S2 present, no murmurs or gallops appreciated. ABDOMEN: Soft, non-tender. No signs of distention. No rebound no guarding, and no masses palpated. Bowel sounds are normal. RECTAL: small amount of fresh blood around rectal area. Rectal exam reveals brown stool that was sent for occult blood. Nurse Emily was present during exam. EXTREMITIES: FROM in all major joints, no edema, no cyanosis or clubbing. NEURO: Alert and oriented x 3. No acute neurological deficits. Speech is normal and follows commands. SKIN: Dry and warm Triage Information Reviewed: Yes Vital Signs On Initial Exam: Initial Vitals Temp Pulse Resp BP Pulse Ox 96.6 F 95 17 161/82 96 12/23/17 11:44 12/23/17 11:44 12/23/17 11:44 12/23/17 11:44 12/23/17 11:44 Vital Signs Reviewed: Yes Diagnostics - Vital Signs Vital Signs Temp Pulse Resp BP Pulse Ox 02/24/18 11:44 96.6 F 95 17 161/82 96 - Laboratory Result Diagrams: 12/23/17 13:11 12/23/17 13:11 Lab Statement: Any lab studies that have been ordered have been reviewed, and results considered in the medical decision making process. - EKG 1301 Cardiac Rate: NL EKG Rhythm: Sinus Rhythm - 83 bpm EKG Interpretation: Normal axis, Normal interval, No ischemic changes GIGU Course/Dx - Course Assessment/Plan: Pt is an 82 y/o with Hx of PE, who is on Coumadin with CC of rectal bleed. Pt is hemodynamically stable. Labs are within normal limit for the pt. Pt will be admitted for monitoring. Dx lower GI bleed. - Diagnoses Provider Diagnoses: Lower GI bleed - Physician Notifications Discussed Care Of Patient With: Pepe Martell - Hospitalist Time Discussed With Above Provider: 13:59 Instructed by Provider To: Admit As Inpatient Discharge - Discharge Plan Condition: Stable Disposition: ADMITTED TO [facility] Referrals: Day Caro MD [Primary Care Provider] - The documentation as recorded by the Serenity wagner Nilda accurately reflects the service I personally performed and the decisions made by Malou rivera Abdul, MD.
[2017-12-23] MEDS ORDERED: Ondansetron INJ* 2 MG/ML VIAL IV PRN (15:48)
[2017-12-23] MEDS ORDERED: Acetaminophen TAB* 325 MG PO PRN (15:52)
[2017-12-23] MEDS: NS 0.9% 1000 ML* 1,000 ML IV SCH (17:38)
[2017-12-23] MEDS ORDERED: Artificial Tears* 15 ML BTL BOTH EYES PRN (18:37)
[2017-12-23 19:03] LABS: Hematocrit 32 % (35-47); Hemoglobin 10.5 g/dl (12.0-16.0)
[2017-12-23] MEDS: Metoprolol Tartrate TAB* 25 MG PO SCH (20:45)
[2017-12-23] MEDS: busPIRone TAB* 15 MG PO SCH (20:45)
--- NOTE | 2017-12-23 21:13 | HP ---
CC: Dr. Caro * HISTORY AND PHYSICAL: DATE OF ADMISSION: 12/23/17 PRIMARY CARE PROVIDER: Dr. Caro. DEPLOYMENT TECHNICIAN: Dr. Bolanos. CHIEF COMPLAINT: Blood in stool. HISTORY OF PRESENT ILLNESS: Ms. Fernández is an 82-year-old female who has a history of 2 recent hospitalizations, the first where she was diagnosed with a small pulmonary embolism and started on Coumadin and second where she was diagnosed with influenza and possible community acquired pneumonia. The patient has been doing well since her second hospitalization. She states her cough has completely cleared up. The patient has not had any issues with her Coumadin; however, on the day of admission the patient had awakened from sleep and went to the bathroom. She was noted to have diarrhea. The patient took what sounds to be a dose of Imodium. She then had 2 more episodes of diarrhea and when she was taking the third pill of Imodium because of the third stool she realized that she had had bright red blood in the toilet bowl. The patient states when she saw the blood she felt slightly woozy. She; however, did not feel lightheaded or off balance, like she was going to fall. The patient denies any abdominal pain. She denies any nausea or vomiting. She denies any acid reflux symptoms. She denies any fevers or chills. She has not been taking any NSAIDs recently and has not been on aspirin. PAST MEDICAL HISTORY: 1. History of PE approximately 10 years ago and again diagnosed 11/30/17. 2. Hypertension. 3. Hypothyroidism. 4. Chronic back pain. 5. GI bleed, May 2017. PAST SURGICAL HISTORY: 1. Tubal ligation. 2. Cholecystectomy. 3. Bilateral cataract extractions. MEDICATIONS: 1. Loperamide 2 mg p.o. after each loose stool up to 8 tablets daily. 2. Coumadin 3 mg p.o. daily. 3. Metoprolol tartrate 75 mg p.o. b.i.d. 4. Potassium chloride 10 mEq p.o. daily. 5. Tylenol 650 mg p.o. q.4 hours p.r.n. pain. 6. BuSpar 15 mg p.o. b.i.d. 7. Amlodipine 2.5 mg p.o. daily. 8. Levothyroxine 100 mcg p.o. daily. 9. Lasix 20 mg p.o. daily. ALLERGIES: No known drug allergies. FAMILY HISTORY: Both parents had a history of coronary artery disease. Patient 's daughter has diabetes. SOCIAL HISTORY: Patient is a former smoker, she quit many years prior. She; however, has only approximately [id number] history of smoking. She denies any alcohol use. The patient's daughters are her healthcare proxies. REVIEW OF SYSTEMS: A complete 11-system review of systems is obtained. Pertinent positives and negatives are as per HPI, and otherwise negative. PHYSICAL EXAMINATION GENERAL: The patient is a well-developed elderly female, seen sitting up in the stretcher in no acute distress. VITAL SIGNS: Blood pressure 161/82, pulse 95, respirations 17, temp 96.6, O2 sat 96% on room air. HEENT: Pupils are equal and round. Extraocular muscles are intact. Oropharynx is clear. Oral mucosa is moist. There is no submandibular, cervical or supraclavicular adenopathy. Thyroid is not enlarged. No thyroid nodules are noted. PULMONARY: Lungs are clear to auscultation bilaterally. CARDIAC: Normal S1 and S2. Regular rate and rhythm. I do not appreciate any murmurs. ABDOMEN: Bowel sounds present. Abdomen is soft, nontender, nondistended. MUSCULOSKELETAL: There is no cyanosis or clubbing of the digits. There is full active range of motion of all 4 extremities. NEURO: Cranial nerves II through XII are grossly intact. Sensation is intact to light touch throughout. Strength is 5/5 and symmetric in both upper and lower extremities bilaterally. SKIN: Warm and dry. There are no rashes. PSYCH: The patient is alert. She is oriented x3. Affect appears appropriate. LABORATORY DATA/DIAGNOSTIC STUDIES: WBC 6.7, hemoglobin 10.4, hematocrit 32, and platelets 272,000. INR 2.33. Sodium 134, potassium 3.7, chloride 101, CO2 25, BUN 8, creatinine 0.79. EKG reveals normal sinus rhythm, without any acute ST or T-wave abnormalities. ASSESSMENT AND PLAN: Ms. Fernández is an 82-year-old female with a history of recently diagnosed pulmonary embolism who was started on Coumadin, who presents to the emergency room with complaints of bright red blood per rectum. 1. Bright red blood per rectum. The patient describes having a small bloody bowel movement. She has not had any further episodes. At this point, I am going to hold her Coumadin; however, I am not going to reverse her INR given her recent diagnosis of pulmonary embolism on 11/30/17. Of note, patient does have a history of previous GI bleed in May 2017, at which time she was taken off her Coumadin for prior pulmonary embolism. A consultation with Dr. March has been requested. The patient will have a followup hemoglobin/hematocrit at 7 o'clock this evening. My suspicion is that this is likely a lower GI bleed. 2. Hypertension. The patient's blood pressure is moderately elevated at this time. I am going to adjust her metoprolol tartrate to 25 mg twice daily in the setting of GI bleed in case she goes hypotensive; however, if her blood pressure remains markedly elevated her metoprolol dose should be increased back to her home dose of 75 twice daily. I am holding her amlodipine for now; however, again if she is quite hypertensive this should be added back. 3. Hypothyroidism. The patient will continue on her usual dose of Synthroid. 4. Anxiety. We will continue BuSpar. 5. DVT prophylaxis. According to the Adult Thrombosis Prophylaxis Risk Factor Assessment Guide, the patient has a total risk factor score of 6 making her highest risk. SCDs alone will be utilized as DVT prophylaxis given her GI bleed. 6. Code status is full. TIME SPENT: 65 minutes was spent admitting this patient. [id number]/[facility] #: [id number] GUILLERMINA
--- NOTE | 2017-12-24 02:10 | CONS ---
GASTROENTEROLOGY CONSULTATION DATE: 12/23/17 CONSULTING PHYSICIAN: Dr. Maria Almonte. REASON FOR CONSULT: Rectal bleeding in the 3 or 4 loose stools this morning. HISTORY OF PRESENT ILLNESS: This 82-year-old woman on warfarin in the last 3 weeks because of a subsegmental right-sided pulmonary embolism (previously 9 or more years of warfarin after an unprovoked pulmonary embolism) came in this morning, having seen blood and loose stool which had just started this morning. She states that a week ago, she was feeling fine. She had a visit with her primary office. The public health training assistant there said she was looking great and there was very little to do. She continued to feel well and yesterday had an unremarkable day, eating normally though she cannot remember what she had for dinner even when given a second opportunity to think it through. She said she is getting forgetful. She slept fine through the night. This morning, she awakened and noted she had some urgency and went to the bathroom where it was loose but not bloody. A second loose passage was also not bloody. Then, she saw some blood and came to the emergency room. She says that having a loose stool like that is not all that unusual, but she has not figured out any particular triggers. Earlier this month, she had an admission for the flu. There was a second admission for respiratory complaints and with persistent hypoxemia, she had a CTA for pulmonary embolism protocol and a small clot was seen. At that point, warfarin was reinstituted. It had been stopped this summer when she had GI bleeding consistent with diverticular bleed. She had several followup visits after that and it is not clear whether it was documented if she reverted to heme -negative status, but probably so, she was heme negative on admission 12/01/17. PAST MEDICAL HISTORY: 1. Unprovoked pulmonary embolism, 2007, with apparently Dr. Bolanos finding his involvement in the records. He is reconsulted with this recent pulmonary embolism. 2. Obesity. 3. Hypothyroidism. 4. History of cholecystectomy. 5. History of tubal ligation. 6. Diverticulosis - seen on colonoscopies. The first in [place] and the second in 2009 here in [place] [address]. Arredondo. MEDICATIONS: Metoprolol 50 b.i.d., aspirin 81, furosemide 20; BuSpar 15 b.i.d. SOCIAL HISTORY: She lives alone. Her granddaughter is a nurse in the emergency room. REVIEW OF SYSTEMS: No history of vomiting, peptic pain, syncope, palpitations, chest pain, seizure, jaundice, gross hematuria, flank pain, fall, or fracture. PHYSICAL EXAM: She is an elderly woman in bed. Alert, engaging, and cooperative, but hopefully not a very good historian. HEENT exam is unremarkable. She has no adenopathy. Her lungs are clear. Heart sounds are regular. Breasts are without gross masses. The abdomen is obese, soft, and nontender. Rectal: Deferred. Extremities show no edema. LABORATORY DATA: INR 2.33. Sodium 134, potassium 3.7, BUN 8, creatinine 0.79. Hemoglobin 10.4, hematocrit 32, MCV 86, platelets 272. IMPRESSION: This 82-year-old woman with a history of clinically defined diverticular bleed, May 2017, now has passed a little bit of blood during the morning of diarrhea. She has a history of irritable bowel syndrome in the past and now over 7 or 8 hours, has not passed another stool while in the ER. It is unclear whether she is having a minimal diverticular bleeding event or more likely a little bit of blood from the rectum as a consequence of functional diarrhea. Holding her warfarin for a day or several would seem to be the appropriate response as opposed to thinking about an or reversing the warfarin. [id number]/[facility] #: [id number] GUILLERMINA
[2017-12-24] MEDS ORDERED: Levothyroxine TAB* 100 MCG TAB PO SCH (06:00)
[2017-12-24 06:24] LABS: Hematocrit 30 % (35-47); Hemoglobin 10.1 g/dl (12.0-16.0); Mean Corpuscular HGB Conc 34 g/dl (31-36); Mean Corpuscular Hemoglobin 29 pg (27-31); Mean Corpuscular Volume 86 fL (80-97); Mean Platelet Volume 8 um3 (7.4-10.4); Platelet Count 241 10^3/ul (150-450); Red Blood Count 3.46 10^6/ul (4.0-5.4); Red Cell Distribution Width 18 % (10.5-15); White Blood Count 5.2 10^3/ul (3.5-10.8)
[2017-12-24 06:35] LABS: EGFR Non-African American 76.3 (>60)
[2017-12-24] MEDS: NS 0.9% 1000 ML* 1,000 ML IV SCH (07:30)
[2017-12-24 08:51] VITALS: BP 142/74
[2017-12-24] MEDS: Metoprolol Tartrate TAB* 25 MG PO SCH (08:51)
[2017-12-24] MEDS: busPIRone TAB* 15 MG PO SCH (08:51)
--- NOTE | 2017-12-24 22:08 | DS ---
DISCHARGE SUMMARY: DATE OF ADMISSION: 12/23/17 DATE OF DISCHARGE: 12/24/17 ADMITTING PROVIDER: Maria Almonte DO PRIMARY CARE PROVIDER: Dr. Caro. PRIMARY BIOTECHNICIAN/ONCOLOGIST: Dr. Bolanos. ATTENDING PHYSICIAN: Alonso Holman MD CONSULTING MEAT PROCESS WORKER: Fredy March MD CHIEF COMPLAINT: Blood in her stool. PRINCIPAL DIAGNOSIS: Lower GI bleeding, likely diverticular in the setting of elevated INRs; recurrent pulmonary embolism, on Coumadin therapy. HISTORY OF PRESENT ILLNESS AND HOSPITAL COURSE: Mandi Fernández is an 82-year-old with past medical history of second pulmonary embolism (just diagnosed on , prior one 10 years ago), hypertension, hypothyroidism, chronic back pain, diverticular bleed in May 2017 and recent admission for influenza/community- acquired pneumonia. She had followed up with her regular weekly INR checks and last was 4.38 on 12/19/17, 4 days prior to admission and I got a call to reduce her dose from 4 to 3 daily. On day of admission, she woke up from sleep with episodes of diarrhea but on the third stool, she knows that there was bright red blood in the toilet. Denied any feelings of light-headedness or dizziness, though was _ blood. Denied any abdominal pain. She presented to emergency room. Her hemoglobin was 10.4, hematocrit 32. She was evaluated by Dr. March of Gastroenterology and was noted to have bleeding secondary to functional diarrhea versus recurrent diverticular bleeding and recommended holding her Coumadin for a day or two. She did not have anymore bleeding or bowel movements in the hospital. Hemoglobin was 10.5 later day of admission and 10.1 on day of discharge. INR on admission was 2.33. She is being discharged with recommended followup with Dr. Bolanos (already arranged on 01/01/18) and Dr. Caro. She was advised to hold her Coumadin one more night and then resume at 3 mg a day. Goal INR is 2 to 3 for recurrent pulmonary embolisms. DISCHARGE MEDICATIONS: No changes: 1. Tylenol 650 mg p.o. q.4 hours p.r.n. 2. BuSpar 15 mg p.o. b.i.d. 3. Levothyroxine 100 mcg p.o. daily. 4. Amlodipine 2.5 mg p.o. daily. 5. Furosemide 20 mg p.o. daily. 6. Imodium 2 mg p.r.n. diarrhea. 7. Metoprolol 75 mg p.o. b.i.d. 8. Potassium chloride 10 mEq p.o. daily. 9. Warfarin 3 mg p.o. daily (hold dose 12/24, then resume). DISCHARGE DIET: No restrictions. ACTIVITY LEVEL: No restrictions. FOLLOWUP: Please follow up with Dr. Caro within [address] Bolanos already scheduled on 01/01/18. TIME SPENT: On discharge, 35 minutes. [id number]/[facility] #: [id number] MTDD
== END 2017-12-24 12:00 | disposition home or self-care (01) ==
LOC: ED 11:37 → MEDTELE 15:48
PROVIDERS: ADMIT Hospitalist; ATTEND Internal Medicine
DX: K92.2 Gastrointestinal hemorrhage, unspecified (principal); D68.9 Coagulation defect, unspecified; Z86.711 Personal history of pulmonary embolism; Z79.01 Long term (current) use of anticoagulants; Z79.899 Other long term (current) drug therapy; I10 Essential (primary) hypertension; E03.9 Hypothyroidism, unspecified; Z87.891 Personal history of nicotine dependence
CPT/HCPCS: 36415; 80048; 80053; 85014; 85018; 85025; 85027; 85610; 85730; 86850; 86900; 86901; 93005; 96360; 96361; 99283; A9270-GY; G0378

== ENCOUNTER 2018-06-07 09:20 | Emergency (ER) | payer MEDICARE ==
--- NOTE | 2018-06-07 10:00 | ED ---
Neurological HPI - HPI Summary HPI Summary: This is scribe Raymond Willard documenting for attending Dr. Carmelo Sotomayor This patient is a 83 year old F presenting to [facility] accompanied by her daughter with a chief complaint of left-sided paresthesia since 06/05/18. She endorses left sided tingling and mild numbness. Yesterday (06/06/18) afternoon sx went away , and then returned at 0500 today. She denies weakness, slurred speech, facial droop, visual changes, CP, and SOB. Pt denies PMHx CVA, DM. PMHx HTN, thyroid problems, and PE for which she takes warfarin. I, Dr. Rhodes personally performed the services described in this documentation as scribed in my presence and it is both accurate and complete. - History of Current Complaint Chief Complaint: EDNeurologicalDeficit Stated Complaint: LEFT SIDE NUMBNESS Time Seen by Provider: 06/07/18 09:35 Hx Obtained From: Patient Onset/Duration: Started days ago, Still Present, Worse Since - This AM sx returned Timing: Intermittent Episodes Lasting: Onset Severity: Mild Current Severity: Mild Neurological Deficit Location: LUE, LLE Pain Intensity: 0 Pain Scale Used: 0-10 Numeric Character: Numbness/Tingling, Paresthesia Aggravating: Nothing Alleviating: Spontanious Resolution Associated Signs and Symptoms: Positive: Numbness. Negative: Visual Changes, Weakness, Impaired Speech, Fever - Additional Pertinent History Primary Care Physician: [id number] - Allergy/Home Medications Allergies/Adverse Reactions: Allergies Allergy/AdvReac Type Severity Reaction Status Date / Time No Known Allergies Allergy Verified 06/07/18 09:28 PMH/Surg Hx/FS Hx/Imm Hx Endocrine/Hematology History: Reports: Hx Blood Transfusions, Hx Thyroid Disease - hypothyroid Denies: Hx Diabetes, Other Endocrine/Hematological Disorders Cardiovascular History: Reports: Hx Embolism, Hx Hypertension Denies: Hx Congestive Heart Failure Respiratory History: Reports: Hx Pneumonia, Hx Pulmonary Embolism, Hx Seasonal Allergies Denies: Hx Asthma, Hx Chronic Obstructive Pulmonary Disease (COPD) GI History: Reports: Hx Gall Bladder Disease, Hx Gastrointestinal Bleed Denies: Hx Ulcer History: Reports: Hx Kidney Infection Musculoskeletal History: Reports: Hx Arthritis, Hx Rheumatoid Arthritis, Hx Back Problems Denies: Hx Scoliosis Sensory History: Reports: Hx Cataracts - surgical removal, bilateral, Hx Contacts or Glasses, Hx Hearing Problem - [place], no hearing aids Denies: Hx Legally Blind, Hx Deafness, Hx Hearing Aid Opthamlomology History: Reports: Hx Cataracts - surgical removal, bilateral, Hx Contacts or Glasses EENT History: Denies: Hx Deafness, Hx Hearing Aid Neurological History: Denies: Hx Headaches, Hx Seizures, Hx Transient Ischemic Attacks (TIA) Psychiatric History: Reports: Hx Depression Denies: Hx Schizophrenia - Surgical History Surgery Procedure, Year, and Place: Tubal Ligation, Bilateral Cataracts surgery , Gallbladder. - Immunization History Date of Influenza Vaccine: Fall 2016 Infectious Disease History: No Infectious Disease History: Denies: Hx Hepatitis, Hx Human Immunodeficiency Virus (HIV), Hx of Known/ Suspected MRSA, History Other Infectious Disease, Traveled Outside the [place] in Last 30 Days - Family History Known Family History: Positive: Hypertension - Social History Occupation: Retired Alcohol Use: None Hx Substance Use: No Substance Use Type: Reports: None Hx Tobacco Use: Yes Smoking Status (MU): Former Smoker Review of Systems Negative: Fever Negative: Photophobia, Blurred Vision, Diplopia Positive: no symptoms reported Positive: Paresthesia, Numbness. Negative: Weakness All Other Systems Reviewed And Are Negative: Yes Physical Exam - Summary Physical Exam Summary: VITAL SIGNS: Reviewed. GENERAL: Patient is a well-developed and nourished female who is lying comfortable in the stretcher. Patient is not in any acute respiratory distress. Ambulating with a cane. HEAD AND FACE: No signs of trauma. No ecchymosis, hematomas or skull depressions. No sinus tenderness. EYES: PERRLA, EOMI x 2, No injected conjunctiva, no nystagmus. EARS: Hearing grossly intact. Ear canals and tympanic membranes are within normal limits. MOUTH: Oropharynx within normal limits. NECK: Supple, trachea is midline, no adenopathy, no JVD, no carotid bruit, no c- spine tenderness, neck with full ROM. CHEST: Symmetric, no tenderness at palpation LUNGS: Clear to auscultation bilaterally. No wheezing or crackles. CVS: Regular rate and rhythm, S1 and S2 present, no murmurs or gallops appreciated. ABDOMEN: Soft, non-tender. No signs of distention. No rebound, no guarding, and no masses palpated. Bowel sounds are normal. EXTREMITIES: FROM in all major joints, no edema, no cyanosis or clubbing. NEURO: Alert and oriented x 3. No acute neurological deficits. Speech is normal and follows commands. NIH score 0. GCS: 15 SKIN: Dry and warm Triage Information Reviewed: Yes Vital Signs On Initial Exam: Initial Vitals Temp Pulse Resp BP Pulse Ox 97.5 F 72 18 120/80 95 06/07/18 09:23 06/07/18 09:23 06/07/18 09:23 06/07/18 09:23 06/07/18 09:23 Vital Signs Reviewed: Yes Diagnostics - Vital Signs Vital Signs Temp Pulse Resp BP Pulse Ox 06/07/18 09:23 97.5 F 72 18 120/80 95 - Laboratory Result Diagrams: 06/07/18 09:56 06/07/18 09:56 Lab Statement: Any lab studies that have been ordered have been reviewed, and results considered in the medical decision making process. - Radiology CXR Radiology Interpretation Completed By: Radiologist - No active disease. No interval change in the appearance of the chest. Dr. Rhodes has reviewed this report. - CT Brain CT Interpretation: No Acute Changes CT Interpretation Completed By: Radiologist - No intracranial mass or hemorrhage is noted. Dr. Rhodes has reviewed this report. - EKG 0951 Cardiac Rate: NL - 62 EKG Rhythm: Sinus Rhythm ST Segment: Normal Ectopy: None EKG Interpretation: no STEMI, Q wave in lead III and AVF NIH Scale - NIH Scale Level of Consciousness: Alert/Keenly Responsive Ask Patient the Month and His/Her Age: Both Correct Ask Pt to Open/Close Eyes and Storage Architect/Release Non-Paretic Hand: Both Correctly Best Gaze (Only Horizontal Eye Movement): Normal Visual Field Testing: No Visual Loss Facial Paresis-Pt to Smile & Close Eyes or Grimace Symmetry: Normal/Symmetrical Motor Function - Right Arm: No Drift-Holds 10 Seconds Motor Function - Left Arm: No Drift-Holds 10 Seconds Motor Function - Right Leg: No Drift-Holds 10 Seconds Motor Function - Left Leg: No Drift-Holds 10 Seconds Limb Ataxia-Must be out of Proportion to Weakness Present: Absent Sensory (Use Pinprick to Test Arms/Legs/Trunk/Face): Normal Best Language (Describe Picture, Name Items): No Aphasia Dysarthria (Read Several Words): Normal Extinction and Inattention: No Abnormality Total Score: 0 Re-Evaluation - Re-Evaluation First Eval Re-Evaluation Time: 11:00 Change: Improved Comment: Pt has no complaints. Course/Dx - Course Assessment/Plan: Patient is an 83-year-old female who presents to the emergency department with a chief complaint of having tingling in the left upper extremity and left lower extremity. The patient denies any weakness or numbness. Patient is able to ambulate with a good steady walk. Blood work without any significant abnormality. INR is therapeutic. Head CT shows no acute intra-abdominal pathology. Chest x-ray shows no acute pathology. In the course the patient is asymptomatic. The neurological exam is normal, Therefore the patient was discharged home with follow-up with primary care physician and neurology. I discussed all the findings and test results with the patient. Patient was instructed to return to the emergency room immediately if any of the symptoms return or worsens. Plan of care was discussed with the patient and understands and agrees. All questions were answered at patient satisfaction. There were no further complaints or concerns. Lung exam before discharge: CTA B /L. Good air exchange. No wheezing or crackles heard. CVS: S1 and S2 present. No murmurs appreciated. Patient is alert and oriented x 3. Patient is hemodynamically stable. Patient will be discharged home with follow up PCP in the next 2-3 days - Diagnoses Provider Diagnoses: Neuropathy Discharge - Sign-Out/Discharge Documenting (check all that apply): Patient Departure - discharge - Discharge Plan Condition: Stable Disposition: HOME Patient Education Materials: Peripheral Neuropathy (ED) Referrals: Jada Hitchcock MD [Medical Doctor] - 3 Days Additional Instructions: Return to the emergency department for any new or worsening symptoms. Follow up with a neurologist (info provided) in 3 days. - Billing Disposition and Condition Condition: STABLE Disposition: Home Attestation Statement User Type: Provider - IDr. Rhodes personally performed the services described in this documentation as scribed in my presence and it is both accurate and complete.
[2018-06-07 10:09] LABS: ABS Basophils 0.1 10^3/ul (0-0.2); ABS Eosinophils 0.3 10^3/ul (0-0.6); ABS Lymphocytes 1.4 10^3/ul (1.0-4.8); ABS Monocytes 0.5 10^3/ul (0-0.8); ABS Neutrophils 4.2 10^3/ul (1.5-7.7); ABS Nucleated RBC 0 10^3/ul; Eosinophil % 4.8 % (0-6); Hematocrit 38 % (35-47); Hemoglobin 12.9 g/dl (12.0-16.0); Lymphocyte % 21.3 % (25-47); Mean Corpuscular HGB Conc 34 g/dl (31-36); Mean Corpuscular Hemoglobin 30 pg (27-31); Mean Corpuscular Volume 89 fL (80-97); Mean Platelet Volume 8.4 um3 (7.4-10.4); Nucleated Red Blood Cells % 0; Platelet Count 200 10^3/ul (150-450); Red Blood Count 4.23 10^6/ul (4.00-5.40); Red Cell Distribution Width 15 % (10.5-15); White Blood Count 6.5 10^3/ul (3.5-10.8)
[2018-06-07 10:14] LABS: Urine Appearance Clear; Urine Blood Negative (Negative); Urine Color Straw; Urine Ketones Negative (Negative); Urine Protein Negative (Negative); Urine Red Blood Cell Absent (Absent); Urine Specific Gravity 1.004 (1.010-1.030); Urine Urobilinogen Negative (Negative); Urine White Blood Cell Trace(0-5/hpf) (Absent)
[2018-06-07 10:18] LABS: INR 2.09 (0.77-1.02)
--- NOTE | 2018-06-07 10:19 | RAD ---
INDICATION: Left chest pain COMPARISON: Chest x-ray December 05, 2017; chest x-ray November 27, 2017; CTA chest November 30, 2017 TECHNIQUE: PA and lateral dual-energy views were obtained. FINDINGS: Bones/Soft Tissues: There are no acute bony findings. Cardiomediastinal: There is an abnormal cardiac silhouette but the appearance unchanged. There is ectasia and uncoiling of the thoracic aorta with mild condylar irregularities. Lungs: There are no infiltrates. There is mild hyperinflation Pleura: There are no pleural effusions. Other: None IMPRESSION: NO ACTIVE DISEASE. NO INTERVAL CHANGE IN THE APPEARANCE OF THE CHEST
[2018-06-07 10:29] LABS: EGFR Non-African American 67.5 (>60)
--- NOTE | 2018-06-07 10:33 | RAD ---
Indication: Numbness. CT of the brain performed without IV contrast. Ventricular structures are midline. No midline shift is noted. The extraction spaces are unremarkable. There is no evidence of intracranial mass or hemorrhage. No other high or low density lesions identified. Mastoid air cells and paranasal sinuses are otherwise unremarkable. When compared to previous exam of November 27, 2017 no intracranial mass or hemorrhage is noted. IMPRESSION: NO INTRACRANIAL MASS OR HEMORRHAGE IS NOTED.
[2018-06-07 11:18] VITALS: BP 137/76
== END 2018-06-07 11:16 | disposition home or self-care (01) ==
LOC: ED 09:20
DX: E11.40 Type 2 diabetes mellitus with diabetic neuropathy, unspecified (principal); I10 Essential (primary) hypertension; E03.9 Hypothyroidism, unspecified; Z86.73 Personal history of transient ischemic attack (TIA), and cerebral infarction without residual deficits; Z86.711 Personal history of pulmonary embolism; Z79.01 Long term (current) use of anticoagulants; Z87.891 Personal history of nicotine dependence
CPT/HCPCS: 36415; 70450; 71046; 80053; 80320; 81003; 81015; 83605; 84484; 85025; 85610; 85730; 87040; 87086; 93005; 99283; G0480

== ENCOUNTER 2019-02-08 08:01 | Inpatient (IN) | payer MEDICARE ==
--- NOTE | 2019-01-30 14:27 | HP ---
HISTORY AND PHYSICAL: DATE OF ADMISSION/SURGERY: 02/08/19 DATE OF OFFICE VISIT: 01/30/19 SURGEON: Fide Medina MD * (DICTATED BY VICKI RAMIREZ) PROCEDURE: Left total knee arthroplasty. CHIEF COMPLAINT: Left knee pain. HISTORY OF PRESENT ILLNESS: Ms. Fernández is an 83-year-old female with end-stage osteoarthritis of the left knee. She has failed conservative treatment and elected to proceed with a left total knee arthroplasty. PAST MEDICAL HISTORY: History of pulmonary embolism, hypertension, hypothyroidism, and hypokalemia. PAST SURGICAL HISTORY: Cholecystectomy, tubal ligation, tonsillectomy. CURRENT MEDICATIONS: 1. Buspirone 15 mg a day. 2. Metoprolol 50 mg twice a day. 3. Klor-Con 10 mEq daily. 4. Amlodipine 2.5 mg a day. 5. Furosemide 20 mg a day. 6. Levothyroxine 100 mcg a day. 7. ProAir HFA. 8. Vitamin C. 9. Vitamin D. 10. Coumadin. ALLERGIES: No known drug allergies. FAMILY HISTORY: Coronary artery disease and diabetes. SOCIAL HISTORY: She is an 83-year-old female. She lives in a cottage next to her daughter. She does not smoke, use drugs or alcohol. REVIEW OF SYSTEMS: A complete 14-point review of systems was reviewed with the patient, is positive for hypothyroidism and history of a pulmonary embolism. She denies history of hepatitis, HIV, or anesthesia problems. PHYSICAL EXAMINATION GENERAL: She is well developed, well nourished, in no acute distress. VITAL SIGNS: She stands 62 inches tall, weighs 207 pounds. Her blood pressure is 158/82 and her heart rate is 67. HEENT: Normocephalic, atraumatic. NECK: Supple. No palpable lymph nodes. PULMONARY: The lungs are clear to auscultation bilaterally. CARDIO: Regular rate and rhythm. Strong S1, S2. ABDOMEN: Soft, nontender, nondistended. NEUROLOGICAL: She is alert and oriented x3. MUSCULOSKELETAL: Left lower extremity: The skin is intact. There are no open wounds or abrasions. She walks with an antalgic-type gait favoring her left knee. She has a moderate effusion. There is a 17-degree valgus deformity that corrects by 5 degrees. There is some MCL laxity. Range of motion is 10 to 125 degrees of flexion. She has 2+ dorsalis pedis pulse. She is able to dorsiflex and plantar flex and has intact sensation. ASSESSMENT AND PLAN: Ms. Fernández is an 83-year-old female with end-stage osteoarthritis of the left knee. She has failed conservative treatment and elected to proceed with a left total knee arthroplasty. The surgery is scheduled for 02/08/[address] Medina discussed the risks and benefits of the surgery at today's visit and all of her questions were answered. She will follow up with Dr. Medina 2 weeks after the surgery. No TXA will be used on this patient because of her history of a pulmonary embolism. Her primary care physician has instructed her to stop her Coumadin 5 days prior to her surgery. Postoperatively, he has also recommend Eliquis twice a day for DVT prophylaxis. VICKI RAMIREZ [id number]/[facility] #: [id number] GUILLERMINA
[~2019-02-08 08:01] MED LIST: Acetaminophen IV 1GM/100ML * 1,000 MG/100 ML VIAL IVPB ONE; Buffered Lidocaine 1% SYRIN* 1 ML/SYRINGE INTRADERM ONE; Dexamethasone IV* 4 MG/ML 1 ML (4 MG) IV SLOW PU ONE; Famotidine IV* 10 MG/ML 2 ML (20 mg) IV ONE; Gabapentin CAP(*) 300 MG PO ONE; Lactated Ringers 1000 ML Bag* 1,000 ML IV SCH; celeCOXIB CAP* 200 MG PO ONE
[2019-02-08] MEDS ORDERED: Dexamethasone IV* 4 MG/ML 1 ML (4 MG) ONE (08:03)
[2019-02-08] MEDS ORDERED: Gabapentin CAP(*) 300 MG ONE (08:03)
[2019-02-08] MEDS ORDERED: ceFAZolin 2 GM in NS PREMIX(*) 2 GM/100 ML BAG IVPB ONE (08:03)
[2019-02-08] MEDS ORDERED: Buffered Lidocaine 1% SYRIN* 1 ML/SYRINGE INTRADERM ONE (08:03)
[2019-02-08] MEDS ORDERED: celeCOXIB CAP* 100 MG ONE (08:03)
[2019-02-08] MEDS ORDERED: Famotidine IV* 10 MG/ML 2 ML (20 mg) ONE (08:03)
[2019-02-08] MEDS ORDERED: Acetaminophen IV 1GM/100ML * 100 ML ONE (08:12)
[2019-02-08] MEDS ORDERED: ROPIVACAINE 5 MG/ML 30 ML BTL (0.5%) ONE ×2 (08:27→10:22)
[2019-02-08] MEDS ORDERED: Metoprolol Tartrate TAB* 50 mg PO ONE (09:00)
[2019-02-08] MEDS ORDERED: Metoprolol Tartrate TAB* 25 MG ONE (09:12)
[2019-02-08 09:30] LABS: INR 0.93 (0.77-1.02)
[2019-02-08] MEDS ORDERED: fentaNYL* 50 MCG/ML 2 ML VIAL (100 MCG VIAL) ONE (09:46)
[2019-02-08] MEDS ORDERED: KETAMINE HCL* 50 MG/ML 10 ML VIAL ONE (09:46)
[2019-02-08] MEDS ORDERED: Midazolam* 1 MG/ML 5 ML VIAL (5 MG) ONE (09:46)
[2019-02-08] MEDS ORDERED: Bupivacaine 0.5% SDV PF* 30ML VIAL ONE (09:47)
[2019-02-08] MEDS ORDERED: Ondansetron INJ* 2 MG/ML VIAL ONE (09:47)
[2019-02-08] MEDS ORDERED: Propofol* 10 MG/ML 20 ML BTL ONE (09:47)
[2019-02-08] MEDS ORDERED: diPHENhydraMINE IV* 50 MG/ML 1 ml VIAL (BENADRYL) IV PRN (11:31)
[2019-02-08] MEDS ORDERED: oxyCODONE TAB* 5 MG TAB PO PRN (11:31)
[2019-02-08] MEDS ORDERED: Ondansetron TAB* 4 MG PO PRN (11:31)
[2019-02-08] MEDS ORDERED: Cyclobenzaprine TAB* 10 MG PO PRN (11:31)
[2019-02-08] MEDS ORDERED: Magnesium Hydroxide LIQ* 30 ML UDC PO PRN (11:31)
[2019-02-08] MEDS ORDERED: Morphine 4 MG/ML VIAL (1 ml) 4 MG/ML VIAL IV PRN (11:31)
[2019-02-08] MEDS ORDERED: Ondansetron INJ* 2 MG/ML VIAL IV PRN ×2 (11:31→12:00)
[2019-02-08] MEDS ORDERED: Polyethylene Glycol 3350* 17 GM PACKET PO PRN (11:31)
[2019-02-08] MEDS ORDERED: Bisacodyl SUPP* 10 MG SUPP PR PRN (11:31)
[2019-02-08] MEDS ORDERED: Loperamide CAP* 2 MG PO PRN (11:35)
[2019-02-08] MEDS ORDERED: Albuterol HFA INHALER* 8 gm MDI INH PRN (11:35)
[2019-02-08] MEDS ORDERED: fentaNYL* 50 MCG/ML 2 ML VIAL (100 MCG VIAL) IV PRN (12:00)
[2019-02-08] MEDS ORDERED: HYDROmorphone INJ1* 1 MG/ML SYRINGE IV PRN (12:00)
[2019-02-08] MEDS ORDERED: DiMENhydriNATE IV* 50 MG/ML VIAL IV PUSH PRN (12:00)
[2019-02-08] MEDS ORDERED: Naloxone* 0.4 MG/ML 1 ML VIAL IV PRN (12:00)
--- NOTE | 2019-02-08 13:58 | OP ---
Operative Report - Blank - Operative Report Date of Operation: 02/08/19 Note: RIKY MORELOS 1935 Date of Surgery: 02/08/19 Fide Medina MD Receiver/Laborer: Kyra COHEN did help throughout the procedure with preparation of the knee, wound retraction, manipulation of the knee, and wound closure. Anesthesiologist: Keo Swift MD Anesthesia Type: spinal Preoperative Diagnosis: Left severe degenerative osteoarthritis of the knee Postoperative Diagnosis: As above Procedure Performed: Left Total Knee Arthroplasty Tourniquet time: 49 minutes Complications: None Specimen: Bone and cartilage from the Left knee joint sent to pathology. Hardware Used: Cemented Urias and Nephew total knee hardware was used - For the femur a size 5 left narow legion posterior stabilized femoral component, for the tibia a size 3 left fernando II tibial baseplate, for the insert a size posterior stabilized articular polyethylene insert, and for the patella a size 32 3-peg all poly patella. Brief History/Indication: RIKY MORELOS was known in clinic and had a history of severe side knee pain and swelling. She failed conservative treatment with anti-inflammatories, pain pills, intra-articular injections and physical therapy. She elected to undergo left total knee arthroplasty due to continued pain and decreased quality of life. Radiographs showed severe end stage osteoarthritis of the knee with bone on bone contact. Informed consent was obtained from the patient. She understood the risks of surgery included but were not limited to: bleeding, infection, damage to nearby structures, intraoperative fracture, nerve palsy, failure of the hardware, early loosening, knee stiffness or loss of motion, anesthesia complications, stroke, heart attack , blood clot and . She wished to proceed. Intra-Operative Findings: Intraoperatively the patient was noted to have severe loss of cartilage in all 3 compartments of the knee. Description of the Procedure: RIKY MORELOS was identified in the preanesthesia unit. Her left knee was marked as the correct operative side. Informed consent was signed and placed in the chart. The patient was taken to the operating room and placed under anesthesia without complication. A garcia catheter was placed. A tourniquet was placed on the left thigh. The left lower extremity was prepped and draped in the usual sterile fashion. Preoperative time-out was made to correctly identify the patient, side and site. Appropriate intraoperative antibiotics were given within one hour of incision. Tourniquet was inflated. A midline incision was made and carried sharply down to the extensor mechanism. A new 10 blade was used to make a standard medial parapatellar arthrotomy. The patella was subluxed laterally. Electrocautery was used to dissect soft tissue off the superomedial tibia to the midsagittal plane. The knee was flexed up. The anterior horn of the lateral meniscus and the ACL were sharply incised. A drill was used to enter the distal femur. The intramedullary distal femoral cutting guide was pinned on the distal femur. The oscillating saw was used to make the distal femoral cut. The external rotation guide was pinned on the distal femur and the distal femur was sized to a size 5. The size 5 multi-cutting jig was pinned on the distal femur. The oscillating saw was used to make the appropriate 4 chamfer cuts. Next the PCL was completely released. The extramedullary tibial cutting guide was pinned on the proximal tibia and the oscillating saw was used to make the proximal tibial cut perpendicular to the mechanical axis of the tibia. The bone was carefully removed. The knee was brought out into full extension. The spacer block was placed and had excellent fit with the knee in full extension. The medial and lateral ligaments were well balanced. The flexion and extension gaps were well balanced. The knee was flexed up. Lamina technical illustrator was placed both medially and laterally. Any remaining meniscus was removed with electrocautery. Curved osteotome was used to remove any posterior osteophytes. The tibial tray and drop immanuel were placed and confirmed a satisfactory tibial cut. The size 5 left femoral trial was impacted onto the distal femur. This trial had excellent fit and stability. The box for the posterior stabilized implant was prepared using a box cut osteotome and a reamer. Next a tibial tray trial and 9 mm insert trial was placed. The knee was taken through a range of motion and had full extension to 130 degrees of flexion. Patellofemoral tracking was satisfactory. The patella was inverted and sized to a size 32. Three peg holes were drilled through the size 32 drill guide. The trial patella was placed and the knee was taken through a range of motion. There was satisfactory patellofemoral tracking. All trials were removed. The tibia was subluxed anteriorly and sized to a size 3. The proximal tibial was prepared with a size 3 keel punch. All bony cut surfaces were irrigated with sterile saline and dried. Final implants were cemented into place starting with the tibia, followed by the femur, and last the patella. A 9 mm insert trial was placed and the knee was brought into full extension. Tourniquet was turned down and the knee was copiously irrigated with sterile saline. Electrocautery was used to obtain meticulous hemostasis. Once the cement had fully cured, the insert trial was removed. Any excess cement was removed from around the hardware and capsule. Final insert chosen was a 11 mm constrained Fernando II articular insert size 3. Stability of the insert was checked and noted to be stable. The extensor mechanism was closed using number 1 vicryls. The rest of the incision was closed in a layered fashion using 0 and 2-0 vicryls. The skin was closed using 3-0 nylon suture. Sterile xeroform, 4x4s and webril were used to cover the incision. Brandon wrap and cold pack were used to cover the dressings. The patients anesthesia was reversed without difficulty. She was taken to the PACU in stable condition. Intended weight-bearing will be as tolerated.
[2019-02-08] MEDS ORDERED: oxyCODONE/Acetamin 5/325 MG* TAB ONE (14:01)
[2019-02-08] MEDS: oxyCODONE/Acetamin 5/325 MG* TAB PO PRN ×3 (14:01→23:19)
[2019-02-08] MEDS ORDERED: Morphine 4 MG/ML VIAL (1 ml) 4 MG/ML VIAL ONE (15:34)
[2019-02-08] MEDS: Lactated Ringers 1000 ML Bag* 1,000 ML IV SCH (15:37)
[2019-02-08] MEDS: Acetaminophen TAB* 325 MG PO SCH ×2 (17:07→23:49)
--- NOTE | 2019-02-08 18:24 | CONS ---
HOSPITAL MEDICINE CONSULTATION REPORT: DATE OF CONSULT: 02/08/19 PROVIDER: Irina Carrero NP ATTENDING PHYSICIAN: Dr. Medina. CONSULTING PHYSICIAN: Dr. Alonso Holman (dictated by Irina Carrero NP). REASON FOR CONSULT: Co-management of chronic medical conditions. HISTORY OF PRESENT ILLNESS: Ms. Fernández is an 83-year-old female with past medical history significant for anxiety, hypertension, pulmonary embolism, asthma, hypothyroid, aortic regurgitation, hypokalemia, GERD, and obesity, who presented for an elective left total knee arthroplasty with Dr. Medina. Please see dictated H and P from VICKI Carter for complete details. In brief, the patient had ongoing pain and failed conservative measures. Therefore, opted for an elective left total knee arthroplasty with Dr. Medina. In the immediate postoperative period, the patient has no complaints. Hospital Medicine was asked to consult to co-manage her chronic medical conditions. PAST MEDICAL HISTORY: Significant for: 1. Anxiety. 2. Hypertension. 3. Pulmonary embolism. 4. Asthma. 5. Hypothyroid. 6. Obesity. 7. Aortic regurgitation. 8. Hypokalemia. 9. GERD. PAST SURGICAL HISTORY: 1. Cholecystectomy. 2. Tubal ligation. 3. Tonsillectomy. 4. Cataract surgery. MEDICATIONS: Home medications include: 1. Metoprolol 50 mg p.o. b.i.d. 2. Klor-Con 10 mEq p.o. daily. 3. Amlodipine 2.5 mg p.o. daily. 4. Furosemide 20 mg p.o. daily. 5. Levothyroxine 100 mcg p.o. daily. 6. BuSpar 15 mg p.o. b.i.d. 7. Iron PS complex/B12/folate 150 mg p.o. q.a.m. 8. ProAir 1 puff q.6 hours as needed for shortness of breath. 9. Vitamin B12 1000 mcg p.o. q.a.m. 10. ALJ capsule, 1 cap p.o. q.a.m. ALLERGIES: No known drug allergies. FAMILY HISTORY: Mother had a pacemaker. Father with a history of coronary artery disease and MS. No reported history of diabetes or cancer within the family. SOCIAL HISTORY: The patient quit smoking approximately 25 years ago. Prior to that, she smoked half a pack a day for 20 to 25 years. Denies any alcohol or illicit drug use. She lives alone. Surrogate decision makers in the event she is unable to make her own decisions are her children, Natasha [phone]. She is a full code. REVIEW OF SYSTEMS: There has been no documented fever. No unintended weight loss. Denies any chest pain or edema. Denies any cough, hemoptysis, or shortness of breath. No nausea, vomiting, or diarrhea. Denies any gross hematuria or dysuria, focal weakness or sensory loss. Denies any visual complaints, dysphagia, arthralgias, myalgias, rashes, lesions, or open sores. Denies any chronic complaints of anxiety or depression. PHYSICAL EXAM: General: At this time, Ms. Fernández is an 83-year-old female who is alert and oriented, sitting on the stretcher in PACU. She is in no acute distress. Vital Signs: Blood pressure 162/91, heart rate 68, respirations 17, O2 saturation 95% on 2 L, temperature was 96.8. HEENT: Head is atraumatic, normocephalic. Eyes, EOMs are intact. Sclerae anicteric and not pale. Oral mucosa appeared to be moist. Neck is supple. Lungs are clear to auscultation bilaterally. No wheezes, rales, or rhonchi. Cardiac: S1, S2. Regular rate and rhythm. Abdomen: Obese, soft, nontender. Bowel sounds are present x4. Extremities: She is able to move all 4 extremities. There is no clubbing or cyanosis. Pedal pulses are +2 bilaterally. Sensation is returning to her lower extremities at the time of evaluation. Skin: She has a dressing that is dry and intact to her left knee. No other rashes, lesions, or open sores. LABORATORY DATA: CBC from 01/26/19, WBCs were 6.3, RBCs 4.01, hemoglobin was 12.2, hematocrit was 37, platelet count was 155. INR from 02/08/19 was 0.93. BMP from 01/26/19, sodium 139, potassium 3.5, chloride 106, carbon dioxide was 27, anion gap was 6, BUN was 9, creatinine 0.74, glucose was 124. Urine from 01/30/19, color was yellow, appearance clear; pH was 6; specific gravity of 1.011. Protein, ketones, blood were negative. Nitrites were negative. Bilirubin was negative. Urobilinogen was negative. Leukocyte esterase was 1+, wbc's 1+, rbc's 1+, squamous epithelial cells were present, urine bacteria was 1+. Urine glucose was negative. Ascorbic acid was negative. IMPRESSION AND PLAN: Ms. Fernández is an 83-year-old female with past medical history significant for anxiety, hypertension, pulmonary embolism, asthma, hypothyroid, aortic regurgitation, and a history of hypokalemia who presented for an elective left total knee arthroplasty with Dr. Medina. We were asked to consult by Orthopedics to help manage her chronic medical conditions. Our recommendations are as follows: 1. Status post left total knee arthroplasty. Management per Orthopedics. PT/ OT per Orthopedics. Bowel regimen per Orthopedics. 2. Hypertension. I will continue on her amlodipine and metoprolol as previously prescribed as well as her furosemide. 3. Anxiety. She should continue on her BuSpar as previously prescribed. 4. Asthma. She can have her ProAir inhaler as needed for shortness of breath. 5. Hypothyroid. She should continue on her levothyroxine 100 mcg p.o. daily. 6. History of pulmonary embolism. The patient will be transitioning from Coumadin to Eliquis for management of her history of pulmonary embolism. She should be placed on Eliquis 2.5 mg p.o. b.i.d. indefinitely. 7. History of hypokalemia. I would monitor her potassium level while she is here in the hospital. I will repeat her BMP tomorrow. 8. DVT prophylaxis. She will be on Eliquis. 9. Code status. She is a full code. TIME SPENT: Time spent on this consultation was 45 minutes, more than half that time was spent at the bedside reviewing events leading thus far to her hospitalization, performing a physical exam and reviewing my plan of care. I have discussed this with my attending, Dr. Alonso Holman, he is in agreement with my plan. IRINA CARRERO, DE ICER [id number]/[facility] #: [id number] GUILLERMINA
[2019-02-08] MEDS: ceFAZolin 1 GM ADVAN(*) 1 GM in NS 0.9% 50 ML* 50 ML IVPB SCH (19:48)
[2019-02-08] MEDS: amLODIPine TAB* 5 MG PO SCH (22:48)
[2019-02-08] MEDS: Docusate CAP* 100 MG PO SCH (22:49)
[2019-02-08] MEDS: busPIRone TAB* 15 MG PO SCH (22:49)
[2019-02-08] MEDS: Metoprolol Tartrate TAB* 50 mg PO SCH (22:49)
[2019-02-08] MEDS: Magnesium Hydroxide LIQ* 30 ML UDC PO SCH (22:50)
[2019-02-09] MEDS: Lactated Ringers 1000 ML Bag* 1,000 ML IV SCH (02:18)
[2019-02-09] MEDS: ceFAZolin 1 GM ADVAN(*) 1 GM in NS 0.9% 50 ML* 50 ML IVPB SCH ×2 (03:29→11:24)
[2019-02-09] MEDS: oxyCODONE/Acetamin 5/325 MG* TAB PO PRN ×4 (03:30→23:22)
[2019-02-09] MEDS: Levothyroxine TAB* 100 MCG TAB PO SCH (05:48)
[2019-02-09 06:23] LABS: Hematocrit 29 % (33-41); Hemoglobin 9.4 g/dL (12.0-16.0); Mean Platelet Volume 9.2 fL (7.4-10.4); Platelet Count 153 10^3/uL (150-450)
[2019-02-09 06:30] LABS: BUN/Creatinine Ratio 18.9 (8-20); Calcium 8.5 mg/dL (8.6-10.3); EGFR African American 90.7 (>60)
[2019-02-09] MEDS: Acetaminophen TAB* 325 MG PO SCH ×2 (07:40→16:48)
[2019-02-09] MEDS ORDERED: Furosemide TAB* 20 MG PO SCH (09:00)
[2019-02-09] MEDS: Potassium Chlor TAB* 10 MEQ TAB.ER PO SCH (09:18)
[2019-02-09] MEDS: Magnesium Hydroxide LIQ* 30 ML UDC PO SCH ×2 (09:18→20:16)
[2019-02-09] MEDS: Docusate CAP* 100 MG PO SCH ×2 (09:18→20:15)
[2019-02-09] MEDS: Metoprolol Tartrate TAB* 50 mg PO SCH ×2 (09:19→20:15)
[2019-02-09] MEDS: Apixaban* 2.5 MG TAB PO SCH ×2 (09:19→20:15)
[2019-02-09] MEDS: busPIRone TAB* 15 MG PO SCH ×2 (09:19→20:15)
--- NOTE | 2019-02-09 09:40 | PN ---
Subjective Date of Service: 02/09/19 Interval History: HD # 2 POD #1 on 02/09 Consult Note ID: 83 yo F PMH hx PE on AC HTN, hyopthyroid, now s/p L TKR Overnight no acute events, VSS, voiding freely, tolerating PO Labs: H/H reviewed-stable This morning seen with daughter at bedside, pleasant and well. Reports minimal pain, denies CP, SOB, GI complaints N/V/D, no RIOS. Questions regarding blood thinner, we discuss already on apixiban in place of coumadin. Discussion no need to check INR. Med rec, only med currently holding is Lasix, which while on fluids would hold. Objective Active Medications: Acetaminophen (Tylenol Tab*) 975 mg PO Q8H [facility] Last Admin: 02/09/19 07:40 Dose: Not Given Albuterol (Ventolin Hfa Inhaler*) 1 puff INH Q6H PRN PRN Reason: SOB/WHEEZING Amlodipine Besylate (Norvasc Tab*) 2.5 mg PO BEDTIME [facility] Last Admin: 02/08/19 22:48 Dose: 2.5 mg Apixaban (Eliquis*) 2.5 mg PO BID [facility] Last Admin: 02/09/19 09:19 Dose: 2.5 mg Bisacodyl (Dulcolax Supp*) 10 mg NE DAILY PRN PRN Reason: constipation Buspirone HCl (Buspar Tab *) 15 mg PO BID [facility] Last Admin: 02/09/19 09:19 Dose: 15 mg Cyclobenzaprine HCl (Flexeril Tab*) 10 mg PO TID PRN PRN Reason: SPASMS Diphenhydramine HCl (Benadryl Iv*) 12.5 mg IV Q6H PRN PRN Reason: PRURITIS Docusate Sodium (Colace Cap*) 100 mg PO BID [facility] Last Admin: 02/09/19 09:18 Dose: 100 mg Cefazolin Sodium 1 gm/ Sodium (Chloride) 50 mls @ 200 mls/hr IVPB Q8H [facility] Stop: 02/09/19 11:44 Last Admin: 02/09/19 03:29 Dose: 200 mls/hr Lactated Ringer's (Lactated Ringers 1000 Ml Bag*) 1,000 mls @ 100 mls/hr IV PER RATE [facility] Last Admin: 02/09/19 02:18 Dose: 100 mls/hr Lactulose (Lactulose*) 30 ml PO Q6H PRN PRN Reason: constipation Levothyroxine Sodium (Synthroid Tab*) 100 mcg PO QAM@0600 [facility] Last Admin: 02/09/19 05:48 Dose: 100 mcg Loperamide HCl (Imodium Cap*) 2 mg PO .SEE DIRECTIONS PRN PRN Reason: DIARRHEA Magnesium Hydroxide (Milk Of Magnesia Liq*) 30 ml PO BID [facility] Last Admin: 02/09/19 09:18 Dose: 30 ml Magnesium Hydroxide (Milk Of Magnesia Liq*) 30 ml PO Q6H PRN PRN Reason: constipation Metoprolol Tartrate (Lopressor Tab*) 50 mg PO BID [facility] Last Admin: 02/09/19 09:19 Dose: 50 mg Morphine Sulfate (Morphine 4 Mg/Ml Vial (1 Ml)) 2 mg IV Q2H PRN PRN Reason: PAIN Last Admin: 02/08/19 15:37 Dose: 2 mg Ondansetron HCl (Zofran Inj*) 4 mg IV Q6H PRN PRN Reason: nausea Ondansetron HCl (Zofran Tab*) 4 mg PO Q6H PRN PRN Reason: NAUSEA Oxycodone HCl (Roxycodone Tab*) 10 mg PO Q4H PRN PRN Reason: SEVERE PAIN Oxycodone/Acetaminophen (Percocet 5/325 Tab*) 1 tab PO Q4H PRN PRN Reason: PAIN Last Admin: 02/09/19 09:19 Dose: 1 tab Oxycodone/Acetaminophen (Percocet 5/325 Tab*) 2 tab PO Q4H PRN PRN Reason: PAIN Last Admin: 02/09/19 03:30 Dose: 2 tab Polyethylene Glycol/Electrolytes (Miralax*) 17 gm PO DAILY PRN PRN Reason: Constipation Potassium Chloride (Klor Con Er Tab*) 10 meq PO QAM [facility] Last Admin: 02/09/19 09:18 Dose: 10 meq Tramadol HCl (Ultram*) 50 mg PO Q6H PRN PRN Reason: PAIN Vital Signs - 8 hr 02/09/19 02/09/19 02/09/19 03:11 03:30 05:43 Temperature 97.0 F Pulse Rate 59 Respiratory 17 16 16 Rate Blood Pressure 126/65 (mmHg) O2 Sat by Pulse 94 Oximetry 02/09/19 02/09/19 02/09/19 07:24 09:09 09:19 Temperature 97.4 F Pulse Rate 64 Respiratory 16 15 16 Rate Blood Pressure 116/63 (mmHg) O2 Sat by Pulse 94 Oximetry Oxygen Devices in Use Now: None Appearance: Pleasant elderly woman sittin gup in chair, glasses Eyes: No Scleral Icterus, PERRLA Ears/Nose/Mouth/Throat: NL Teeth, Lips, Gums Neck: NL Appearance and Movements; NL JVP Respiratory: Symmetrical Chest Expansion and Respiratory Effort, Clear to Auscultation Cardiovascular: NL Sounds; No Murmurs; No JVD, RRR Abdominal: No Hepatosplenomegaly, - - NABS mild distention but non tender Lymphatic: No Cervical Adenopathy Extremities: - - Mild chronic venous stasis, 1+ non pitting edema Neurological: Alert and Oriented x 3 Result Diagrams: 02/09/19 05:52 02/09/19 05:52 Assess/Plan/Problems-Billing Assessment: 83 yo F PMH hx PE, HTN, hyopthyroid, now s/p L TKR, medicine consulted for co management of medical problems. - Patient Problems (1) Status post left knee replacement Current Visit: Yes Status: Acute Code(s): Z96.652 - PRESENCE OF LEFT ARTIFICIAL KNEE JOINT SNOMED Code(s): 0257729401879 Comment: - Pain mgmt per orthopedics (2) HTN (hypertension) Current Visit: No Status: Chronic Code(s): I10 - ESSENTIAL (PRIMARY) HYPERTENSION SNOMED Code(s): 67533741 Comment: - Normotensve thus far - Continue metoprolol, amlodipine and hold lasix while on fluids. (3) Hypothyroidism Current Visit: No Status: Chronic Code(s): E03.9 - HYPOTHYROIDISM, UNSPECIFIED SNOMED Code(s): 61424499 Comment: - Continue levothyroxine (4) Pulmonary embolism Current Visit: No Status: Acute Code(s): I26.99 - OTHER PULMONARY EMBOLISM WITHOUT ACUTE COR PULMONALE SNOMED Code(s): 46496619 Comment: - 2018, remains on AC, now on Abipxiban (5) DVT prophylaxis Current Visit: No Status: Acute Code(s): CJG3680 - SNOMED Code(s): 768582786 Comment: - Apixiban (6) Full code status Current Visit: No Status: Acute Code(s): Z78.9 - OTHER SPECIFIED HEALTH STATUS SNOMED Code(s): 414757825 Comment: Status and Disposition: Disposition per orthopedics. We will follow along with Ms. Fernández's care and plan to resume lasix on d/c or when off fluids. Thank you for this consult.
--- NOTE | 2019-02-09 09:46 | PN ---
Progress Note - Progress Note Date of Service: 02/09/19 SOAP: Subjective: Pt. is alert, pain controlled. Objective: Vital Signs: Temp Pulse Resp BP Pulse Ox 97.4 F 64 16 116/63 94 02/09/19 09:09 02/09/19 09:09 02/09/19 09:19 02/09/19 09:09 02/09/19 09:09 Laboratory Results - last 24 hr 02/09/19 02/09/19 05:52 05:52 Hgb 9.4 L Hct 29 L Plt Count 153 MPV 9.2 Sodium 135 Potassium 4.0 Chloride 102 Carbon Dioxide 28 Anion Gap 5 BUN 14 Creatinine 0.74 Est GFR ( Amer) 90.7 Est GFR (Non-Af Amer) 75.0 BUN/Creatinine Ratio 18.9 Glucose 136 H Calcium 8.5 L LLE - dressing c/d/i. distally mod swelling, +df/pf, full sens lt, 2+ dp pulse. Assessment: 83 yo F pod 1 s/p LTKA Plan: Pt. is doing well. PT- wbat eliquis Possible d/c to PMRU vs SNF
[2019-02-09] MEDS: traMADol TAB* 50 MG PO PRN (13:24)
[2019-02-09] MEDS: amLODIPine TAB* 5 MG PO SCH (20:15)
[2019-02-10] MEDS: Acetaminophen TAB* 325 MG PO SCH ×4 (00:12→10:10)
[2019-02-10 05:54] LABS: Hematocrit 27 % (33-41); Hemoglobin 9.2 g/dL (12.0-16.0); Mean Platelet Volume 9.4 fL (7.4-10.4); Platelet Count 126 10^3/uL (150-450)
[2019-02-10] MEDS: Levothyroxine TAB* 100 MCG TAB PO SCH (06:08)
[2019-02-10] MEDS: Apixaban* 2.5 MG TAB PO SCH ×2 (08:56→10:10)
[2019-02-10] MEDS: busPIRone TAB* 15 MG PO SCH ×2 (08:56→10:10)
[2019-02-10] MEDS: Magnesium Hydroxide LIQ* 30 ML UDC PO SCH ×2 (08:56→09:08)
[2019-02-10] MEDS: Docusate CAP* 100 MG PO SCH (08:56)
[2019-02-10] MEDS: Potassium Chlor TAB* 10 MEQ TAB.ER PO SCH (08:56)
[2019-02-10] MEDS: Metoprolol Tartrate TAB* 50 mg PO SCH (10:11)
--- NOTE | 2019-02-10 10:20 | PN ---
Progress Note - Progress Note Date of Service: 02/10/19 SOAP: Subjective: Pt is doing well. Denies N/T, F/C or CP/SOB, no calf pain. Doing well with PT. Objective: PE- 83 y/o WDWN F NAD, A&Ox3 LLE- dressing changed, inc c/d/i with no warmth or erythema, edema and ecchymosis of the left lower leg. No warmth or erythema. calf soft NT, +DF/PF ankle, +2 Dp pulse, SILT distally Vital Signs Temp Pulse Resp BP Pulse Ox 99.1 F 79 18 142/54 93 02/10/19 10:13 02/10/19 10:13 02/10/19 10:13 02/10/19 10:13 02/10/19 04:09 Laboratory Results - last 24 hr 02/10/19 05:41 Hgb 9.2 L Hct 27 L Plt Count 126 L MPV 9.4 Assessment: 83 yo F pod 2 s/p LTKA Plan: Cont PT- wbat eliquis bid for DVT prophylaxis acute delirium overnight, improved in am- try to use mostly tramadol for pain control Cont to monitor left lower leg skin changes Possible d/c to PMRU vs SNF
--- NOTE | 2019-02-10 11:52 | DS ---
Orthopedic Discharge Summary - Discharge Summary Date of Admission:02/08/19 Date of Discharge: 02/10/19 Date of Surgery: 02/08/19 Attending Orthopedic Provider: Dr. Medina Pre-operative Diagnosis: left knee OA Operative Procedure: Left total knee arthroplasty Condition of Patient: Stable History: RIKY MORELOS is a 83 year old F with years of increasingly severe left knee pain due to OA. Patient has failed conservative management and has elected to undergo a left total knee replacement Hospital Course: RIKY was admitted to [facility] on 02/08/19. Patient underwent a left TKA without complication followed by a brief recovery in PACU and transfer to the Short Stay Surgical Unit in stable condition. Our hospitalist service, physical therapy and occupational therapy also participated in this patients care. Post-op day 1: patient was alert and in no acute distress. Dressing was clean, dry and intact. Operative extremity dorsiflexion and plantarflexion intact, sensation intact to light touch distally , DP2+. Post-op day two: dressing was changed, incision was clean, dry and intact. Patient was deemed to be medically and orthopedically stable for discharge home. Physical therapy goals were met. Home Medications Medication Instructions Recorded Confirmed Type Furosemide TAB* [Lasix TAB*] 20 mg PO QAM 01/25/14 02/08/19 History Levothyroxine TAB* [Synthroid 100 100 mcg PO QAM 01/25/14 02/08/19 History MCG TAB*] amLODIPine TAB* [Norvasc 5 mg TAB*] 2.5 mg PO BEDTIME 01/25/14 02/08/19 History busPIRone TAB* [Buspar TAB*] 15 mg PO BID 06/18/14 02/08/19 History Potassium Chlor TAB* [Klor Con ER 10 meq PO QAM 11/30/17 02/08/19 History TAB 10 MEQ*] Acetaminophen TAB* [Tylenol TAB*] 650 mg PO Q4H PRN tab 12/02/17 02/08/19 Rx Loperamide CAP* [Imodium CAP*] 2 mg PO .SEE DIRECTIONS PRN #30 cap 12/08/1710/17 Rx Albuterol inh POWDER (NF) [Proair 1 puff INH Q6H PRN 01/30/19 02/08/19 History Respiclick] Alj Capsule 1 cap PO QAM PRN 01/30/19 02/08/19 History Cyanocobalamin TAB* [Vitamin B12 1,000 mcg PO QAM 01/30/19 02/08/19 History TAB*] Iron Ps Complex/B12/Folic Acid 150 mg PO QAM 01/30/19 02/08/19 History [Iferex 150 Forte Capsule] Metoprolol Tartrate TAB* 50 mg PO BID 01/30/19 02/08/19 History [Lopressor TAB*] Apixaban* [Eliquis*] 2.5 mg PO BID tab 02/10/19 Rx Docusate CAP* [Colace Cap*] 100 mg PO BID cap 02/10/19 Rx traMADol TAB* [Ultram*] 50 mg PO Q6H PRN tab 02/10/19 Rx Discharge Instructions following Orthopedic Surgery: Activity: * Weight Bearing as tolerated * Continue physical therapy and occupational therapy exercises as shown Wound care: * OK to shower on post-op day 3, no bathing, swimming, or submerging wound. * Use gentle soap, pat dry. Cover with gauze, AYO wrap or tape. * Visiting home nurse to do wound checks. Call Orthopedic office for: * Increased drainage * Redness * Increased pain * Fever Go to ER with shortness of breath or chest pain. Diet: * Regular diet * Increase fluids and fiber to prevent constipation. * Continue to use stool softeners, call office if no bowel motion within 48 hours. Medications See Home Medication List in your packet for medications that you should take after discharge. DVT Prophylaxis Eliquis Dosin.5 mg, 1 tab every 12 hours x 30 days Do NOT take ibuprofen, aspirin, naproxen or coumadin while on eliquis Pain Control: Tramadol 50 mg take 1-2 tab every 6 hours as needed for pain. MDD 6 Tylenol 650 mg take 1 tab every 4 hours as needed pain Antibiotics are required prior to any dental work. FOLLOW UP: Follow up with [Adam] Within 10-14 days, call for appointment Please call our office with any questions or concerns ([phone]) Rx sent to [facility]
[2019-02-10] MEDS ORDERED: Magnesium Hydroxide LIQ* 30 ML UDC PO PRN (12:00)
[2019-02-10 12:02] VITALS: BP 140/73
[2019-02-10] MEDS: traMADol TAB* 50 MG PO PRN (15:05)
== END 2019-02-10 13:15 | disposition home health service (06) | DRG 470 ==
LOC: AA 08:01 → SSU 11:32
PROVIDERS: ADMIT Orthopaedic Surgery Adult Reconstructive Orthopaedic Surgery; ATTEND Orthopaedic Surgery Adult Reconstructive Orthopaedic Surgery
PROC: 0SRD0J9 Replacement of Left Knee Joint with Synthetic Substitute, Cemented, Open Approach (ICD-10-PCS; principal; 2019-02-08 11:30)
DX: M17.12 Unilateral primary osteoarthritis, left knee (principal); I10 Essential (primary) hypertension; E03.9 Hypothyroidism, unspecified; M25.462 Effusion, left knee; M25.762 Osteophyte, left knee; F41.9 Anxiety disorder, unspecified; J45.909 Unspecified asthma, uncomplicated; E66.9 Obesity, unspecified; M21.062 Valgus deformity, not elsewhere classified, left knee; H91.93 Unspecified hearing loss, bilateral; K58.9 Irritable bowel syndrome, unspecified; E78.00 Pure hypercholesterolemia, unspecified; K21.9 Gastro-esophageal reflux disease without esophagitis; I08.3 Combined rheumatic disorders of mitral, aortic and tricuspid valves; I71.2 Thoracic aortic aneurysm, without rupture; Z96.1 Presence of intraocular lens; Z68.37 Body mass index [BMI] 37.0-37.9, adult; Z98.49 Cataract extraction status, unspecified eye; Z87.11 Personal history of peptic ulcer disease; Z87.891 Personal history of nicotine dependence; Z86.711 Personal history of pulmonary embolism; Z90.49 Acquired absence of other specified parts of digestive tract; Z98.51 Tubal ligation status; Z82.49 Family history of ischemic heart disease and other diseases of the circulatory system; Z83.3 Family history of diabetes mellitus; R41.0 Disorientation, unspecified
CPT/HCPCS: 36415; 80048; 85014; 85018; 85049; 85610; A9270-GY; C1776; G8978-GP-CJ; G8979-GP-CI; J0690; J1100; J2250; J2270; J2405; J2704; J2795; J3010

== ENCOUNTER 2021-03-04 11:51 | Observation (INO) ==
[2021-03-04 12:37] LABS: ABS Eosinophils 0.3 10^3/ul (0-0.6); ABS Lymphocytes 1.6 10^3/ul (1.0-4.8); ABS Monocytes 0.4 10^3/ul (0-0.8); ABS Neutrophils 4.2 10^3/ul (1.5-7.7); Eosinophil % 4.6 %; Hematocrit 39 % (35-47); Lymphocyte % 24.7 %; Mean Corpuscular HGB Conc 33 g/dL (31-36); Mean Corpuscular Hemoglobin 32 pg (27-31); Mean Corpuscular Volume 95 fL (80-97); Nucleated Red Blood Cells % 0.1; Platelet Count 171 10^3/uL (150-450); Red Blood Count 4.11 10^6 /uL (3.70-4.87); Red Cell Distribution Width 13 % (10-15); White Blood Count 6.6 10^3/uL (3.5-10.8)
[2021-03-04 12:44] LABS: INR 1.29 (0.82-1.09)
[2021-03-04 12:55] LABS: Albumin 4.1 g/dL (3.2-5.2); Albumin/Globulin Ratio 1.4 (1-3); Calcium 9.4 mg/dL (8.6-10.3); EGFR African American 80.2 (>60); EGFR Non-African American 66.3 (>60); Globulin 2.9 g/dL (2-4); Potassium 4.1 mmol/L (3.5-5.0); Total Bilirubin 0.7 mg/dL (0.2-1.0)
[2021-03-04 17:00] LABS: TSH Ultra Thyroid Stim Horm 1.47 mcIU/mL (0.34-5.60)
[2021-03-04] MEDS ORDERED: Albuterol HFA INHALER 8 gm MDI INH PRN (17:30)
[2021-03-04] MEDS: Mometasone 220 MCG MDI INH SCH (20:12)
[2021-03-04] MEDS ORDERED: Iodixanol (CONTRAST) 320 MG/ML 100 ML SDV IV ONE (20:26)
[2021-03-05 06:39] LABS: Calcium 8.9 mg/dL (8.6-10.3); EGFR African American 101.2 (>60); EGFR Non-African American 83.7 (>60); Potassium 3.7 mmol/L (3.5-5.0)
[2021-03-05] MEDS: Mometasone 220 MCG MDI INH SCH (08:20)
[2021-03-05] MEDS ORDERED: Potassium Chlor 10 meq TAB PO SCH (09:00)
[2021-03-05] MEDS ORDERED: Regadenoson 0.4 MG/5 ML SYRINGE ONE (09:12)
[2021-03-05] MEDS ORDERED: Aminophylline 25 MG/ML VIAL ONE (09:12)
[2021-03-05 11:46] VITALS: BP 130/68
== END 2021-03-05 16:25 | disposition home or self-care (01) ==
LOC: ED 11:51 → MEDTELE 16:41 → INTOOBSV 03-05 16:09
PROVIDERS: ADMIT Internal Medicine; ATTEND Internal Medicine

== ENCOUNTER 2021-03-30 06:44 | Observation (INO) ==
[2021-03-30 07:34] LABS: ABS Eosinophils 0.6 10^3/ul (0-0.6); ABS Lymphocytes 1.5 10^3/ul (1.0-4.8); ABS Monocytes 0.5 10^3/ul (0-0.8); ABS Neutrophils 4.2 10^3/ul (1.5-7.7); Eosinophil % 9.2 %; Hematocrit 38 % (35-47); Hemoglobin 12.9 g/dL (12.0-16.0); Lymphocyte % 21.4 %; Mean Corpuscular HGB Conc 34 g/dL (31-36); Mean Corpuscular Hemoglobin 32 pg (27-31); Mean Corpuscular Volume 92 fL (80-97); Mean Platelet Volume 9.2 fL (7.4-10.4); Nucleated Red Blood Cells % 0.1; Platelet Count 180 10^3/uL (150-450); Red Blood Count 4.08 10^6 /uL (3.70-4.87); Red Cell Distribution Width 13 % (10-15); White Blood Count 6.9 10^3/uL (3.5-10.8)
[2021-03-30 07:51] LABS: Albumin 3.9 g/dL (3.2-5.2); Albumin/Globulin Ratio 1.4 (1-3); Calcium 9.4 mg/dL (8.6-10.3); EGFR African American 81.3 (>60); EGFR Non-African American 67.2 (>60); Globulin 2.8 g/dL (2-4); Magnesium 2.1 mg/dL (1.9-2.7); Potassium 3.7 mmol/L (3.5-5.0); Total Bilirubin 0.6 mg/dL (0.2-1.0); Total Protein 6.7 g/dL (6.4-8.9)
[2021-03-30] MEDS ORDERED: Iohexol 350 (CONTRAST) 500 ML MDV IV ONE (08:01)
[2021-03-30] MEDS ORDERED: Magnesium Hydroxide LIQ 30 ML UDC PO PRN (10:10)
[2021-03-30] MEDS ORDERED: Albuterol HFA INHALER 8 gm MDI INH PRN (10:13)
[2021-03-30 20:14] LABS: HDL Cholesterol 43.9 mg/dL
[2021-03-30 21:07] LABS: TSH Ultra Thyroid Stim Horm 0.53 mcIU/mL (0.34-5.60)
[2021-03-31 06:09] LABS: ABS Eosinophils 0.5 10^3/ul (0-0.6); ABS Lymphocytes 1.7 10^3/ul (1.0-4.8); ABS Monocytes 0.7 10^3/ul (0-0.8); Eosinophil % 6.7 %; Hematocrit 38 % (35-47); Hemoglobin 12.8 g/dL (12.0-16.0); Lymphocyte % 21.4 %; Mean Corpuscular HGB Conc 34 g/dL (31-36); Mean Corpuscular Hemoglobin 32 pg (27-31); Mean Corpuscular Volume 93 fL (80-97); Mean Platelet Volume 9.3 fL (7.4-10.4); Platelet Count 161 10^3/uL (150-450); Red Blood Count 4.06 10^6 /uL (3.70-4.87); Red Cell Distribution Width 13 % (10-15); White Blood Count 7.9 10^3/uL (3.5-10.8)
[2021-03-31 07:06] LABS: EGFR African American 88.9 (>60); EGFR Non-African American 73.4 (>60); HDL Cholesterol 43.3 mg/dL; Potassium 3.8 mmol/L (3.5-5.0)
[2021-03-31] MEDS ORDERED: Mometasone/Formoter 100/5 MDI INH SCH (09:00)
[2021-03-31] MEDS ORDERED: Potassium Chlor 10 meq TAB PO SCH (09:00)
[2021-03-31] MEDS ORDERED: Cholecalciferol (VIT D3) 1,000 unit TAB PO SCH (09:00)
[2021-03-31 11:55] VITALS: BP 143/60
== END 2021-03-31 13:17 | disposition home or self-care (01) ==
LOC: ED 06:44 → MEDTELE 06:44
PROVIDERS: ADMIT Hospitalist; ATTEND Hospitalist

== ENCOUNTER 2022-05-24 17:52 | Observation (INO) ==
[2022-05-24 19:35] LABS: INR 2.01 (0.89-1.11)
[2022-05-24 19:36] LABS: ABS Eosinophils 0.1 10^3/ul (0-0.6); ABS Lymphocytes 2.1 10^3/ul (1.0-4.8); ABS Monocytes 1.1 10^3/ul (0-0.8); ABS Neutrophils 8.1 10^3/ul (1.5-7.7); Eosinophil % 0.7 %; Hematocrit 38 % (35-47); Hemoglobin 12.4 g/dL (12.0-16.0); Lymphocyte % 18.7 %; Mean Corpuscular HGB Conc 33 g/dL (31-36); Mean Corpuscular Hemoglobin 32 pg (27-31); Mean Corpuscular Volume 97 fL (80-97); Mean Platelet Volume 9.4 fL (7.4-10.4); Nucleated Red Blood Cells % 0.1; Platelet Count 146 10^3/uL (150-450); Red Blood Count 3.88 10^6 /uL (3.70-4.87); Red Cell Distribution Width 13 % (10-15); White Blood Count 11.5 10^3/uL (3.5-10.8)
[2022-05-24] MEDS ORDERED: metroNIDAZOLE IV 500 MG/100ML 500 MG/100 ML BAG IVPB ONE (19:44)
[2022-05-24] MEDS ORDERED: Cefepime 2 GM in Dextrose 2 GM/50 ML BAG IV ONE (19:44)
[2022-05-24 20:19] LABS: Albumin 3.8 g/dL (3.2-5.2); Albumin/Globulin Ratio 1.1 (1-3); C Reactive Protein 67.61 mg/L (<8.01); Calcium 9.2 mg/dL (8.6-10.3); Globulin 3.4 g/dL (2-4); Potassium 4.3 mmol/L (3.5-5.0); Total Protein 7.2 g/dL (6.4-8.9); eGFR CKD-EPI 79.5 (>60)
[2022-05-24] MEDS ORDERED: Vancomycin 1,250 MG in NS 0.9% 250 ml 250 ML IVPB ONE (21:30)
[2022-05-24] MEDS ORDERED: Albuterol HFA INHALER 8 gm MDI INH PRN (23:00)
[2022-05-24] MEDS ORDERED: Warfarin per PHARMACY **NOTE FOLLOW UP SCH (23:00)
[2022-05-25] MEDS: Collagenase 250 units/gm OINT 1 tube TOPICAL SCH ×2 (02:19→09:23)
[2022-05-25 05:34] LABS: Hematocrit 36 % (35-47); Hemoglobin 11.9 g/dL (12.0-16.0); Mean Corpuscular HGB Conc 34 g/dL (31-36); Mean Corpuscular Hemoglobin 33 pg (27-31); Mean Corpuscular Volume 97 fL (80-97); Mean Platelet Volume 9.9 fL (7.4-10.4); Platelet Count 114 10^3/uL (150-450); Red Blood Count 3.67 10^6 /uL (3.70-4.87); Red Cell Distribution Width 13 % (10-15); White Blood Count 9.5 10^3/uL (3.5-10.8)
[2022-05-25 05:39] LABS: INR 1.93 (0.89-1.11)
[2022-05-25 05:51] LABS: Albumin 3.3 g/dL (3.2-5.2); Albumin/Globulin Ratio 1.1 (1-3); Calcium 8.7 mg/dL (8.6-10.3); Globulin 3.1 g/dL (2-4); Potassium 4.3 mmol/L (3.5-5.0); Total Bilirubin 1.3 mg/dL (0.2-1.0); Total Protein 6.4 g/dL (6.4-8.9); eGFR CKD-EPI 78.3 (>60)
[2022-05-25] MEDS: ceFAZolin 1 GM ADVAN 1 GM in NS 0.9% 50 ML 50 ML IVPB SCH ×3 (06:13→22:17)
[2022-05-25] MEDS ORDERED: NS 0.9% 500 ml BAG 500 ML IV ONE (06:56)
[2022-05-25] MEDS ORDERED: NS 0.9% 1000 ml BAG 1,000 ML IV ONE (06:56)
[2022-05-25] MEDS ORDERED: cefTRIAXone 1 gm/50 mL D5W 1 GM/50 ML BAG IV SCH (09:00)
[2022-05-25] MEDS: Cholecalciferol (VIT D3) 1,000 unit TAB PO SCH (09:04)
[2022-05-25] MEDS ORDERED: Warfarin DAILY REMINDER **NOTE FOLLOW UP SCH (17:00)
[2022-05-25 22:08] LABS: Urine Appearance Clear; Urine Bilirubin Negative (Negative); Urine Blood Negative (Negative); Urine Color Yellow; Urine Glucose Negative (Negative); Urine Ketones Negative (Negative); Urine Nitrite Negative (Negative); Urine Protein Negative (Negative); Urine Specific Gravity 1.015 (1.005-1.030); Urine Urobilinogen 0.2 (Negative) (Negative); Urine pH 5.5 (5.0-9.0)
[2022-05-25 22:13] LABS: Urine Bacteria 1+ (Absent); Urine Red Blood Cell Trace(0-2/hpf) (Absent); Urine Squamous Epithelial Cell Present (Absent); Urine White Blood Cell 1+(6-10/hpf) (Absent)
[2022-05-25] MEDS: Nystatin TOP POWDER 15 GM BTL TOPICAL SCH (22:32)
[2022-05-26] MEDS: ceFAZolin 1 GM ADVAN 1 GM in NS 0.9% 50 ML 50 ML IVPB SCH (05:26)
[2022-05-26 06:14] LABS: INR 1.77 (0.89-1.11)
[2022-05-26] MEDS: Nystatin TOP POWDER 15 GM BTL TOPICAL SCH (09:00)
[2022-05-26] MEDS: Cholecalciferol (VIT D3) 1,000 unit TAB PO SCH (09:43)
[2022-05-26 11:03] VITALS: BP 165/64
[2022-05-26 11:07] LABS: ABS Eosinophils 0.1 10^3/ul (0-0.6); ABS Lymphocytes 1.5 10^3/ul (1.0-4.8); ABS Monocytes 0.8 10^3/ul (0-0.8); ABS Neutrophils 6.6 10^3/ul (1.5-7.7); Hematocrit 36 % (35-47); Hemoglobin 12.2 g/dL (12.0-16.0); Lymphocyte % 16.1 %; Mean Corpuscular HGB Conc 34 g/dL (31-36); Mean Corpuscular Hemoglobin 33 pg (27-31); Mean Corpuscular Volume 98 fL (80-97); Mean Platelet Volume 9.4 fL (7.4-10.4); Platelet Count 129 10^3/uL (150-450); Red Blood Count 3.72 10^6 /uL (3.70-4.87); Red Cell Distribution Width 13 % (10-15)
[2022-05-26 11:57] LABS: Calcium 9.2 mg/dL (8.6-10.3); Potassium 4.3 mmol/L (3.5-5.0); eGFR CKD-EPI 84.2 (>60)
[2022-05-26] MEDS: Collagenase 250 units/gm OINT 1 tube TOPICAL SCH (13:34)
== END 2022-05-26 15:00 | disposition home or self-care (01) ==
LOC: ED 17:52 → EDHOLD 17:52 → SUATTDRO 21:59 → MED 05-25 00:16
PROVIDERS: ADMIT Internal Medicine; ATTEND Student in an Organized Health Care Education/Training Program

== ENCOUNTER 2023-01-04 08:57 | Observation (INO) ==
[2023-01-04 11:17] LABS: ABS Lymphocytes 1.5 10^3/ul (1.0-4.8); ABS Monocytes 0.5 10^3/ul (0-0.8); ABS Neutrophils 4.9 10^3/ul (1.5-7.7); Eosinophil % 0.7 %; Hematocrit 36 % (35-47); Hemoglobin 11.7 g/dL (12.0-16.0); Lymphocyte % 21.8 %; Mean Corpuscular HGB Conc 33 g/dL (31-36); Mean Corpuscular Hemoglobin 31 pg (27-31); Mean Corpuscular Volume 95 fL (80-97); Mean Platelet Volume 9.1 fL (7.4-10.4); Platelet Count 141 10^3/uL (150-450); Red Blood Count 3.76 10^6 /uL (3.70-4.87); Red Cell Distribution Width 13 % (10-15)
[2023-01-04 11:30] LABS: Activated Partial Thrombo Time 31.6 seconds (26.0-38.0); INR 2.03 (0.88-1.18)
[2023-01-04 12:15] LABS: Albumin 3.9 g/dL (3.2-5.2); Albumin/Globulin Ratio 1.1 (1-3); C Reactive Protein 4.24 mg/L (<8.01); Calcium 9.9 mg/dL (8.6-10.3); Creatinine, Serum 0.76 mg/dL (0.51-0.95); Globulin 3.5 g/dL (2-4); Potassium 4.1 mmol/L (3.5-5.0); Total Bilirubin 0.9 mg/dL (0.2-1.0); Total Protein 7.4 g/dL (6.4-8.9); eGFR CKD-EPI 75.8 (>60)
[2023-01-04 13:05] LABS: High Sensitivity Troponin 1 Hr 18 pg/mL (<15)
[2023-01-04 14:51] LABS: Urine Appearance Clear; Urine Bilirubin Negative (Negative); Urine Blood Negative (Negative); Urine Color Yellow; Urine Glucose Negative (Negative); Urine Ketones Negative (Negative); Urine Nitrite Negative (Negative); Urine Protein Negative (Negative); Urine Specific Gravity 1.021 (1.002-1.030); Urine Urobilinogen Negative (Negative)
[2023-01-04] MEDS ORDERED: Polyethylene Glycol 3350 17 GM PACKET PO PRN (17:50)
[2023-01-04] MEDS ORDERED: Warfarin per PHARMACY **NOTE FOLLOW UP SCH (18:00)
[2023-01-04] MEDS: Albuterol HFA INHALER 8 gm MDI INH SCH (18:09)
[2023-01-05] MEDS: Albuterol HFA INHALER 8 gm MDI INH SCH ×5 (01:30→23:35)
[2023-01-05 06:06] LABS: ABS Eosinophils 0.1 10^3/ul (0-0.6); ABS Lymphocytes 2.7 10^3/ul (1.0-4.8); ABS Monocytes 0.8 10^3/ul (0-0.8); ABS Neutrophils 6.6 10^3/ul (1.5-7.7); Eosinophil % 0.8 %; Hematocrit 41 % (35-47); Hemoglobin 13.7 g/dL (12.0-16.0); Lymphocyte % 26.3 %; Mean Corpuscular HGB Conc 34 g/dL (31-36); Mean Corpuscular Hemoglobin 32 pg (27-31); Mean Corpuscular Volume 97 fL (80-97); Mean Platelet Volume 9.5 fL (7.4-10.4); Platelet Count 151 10^3/uL (150-450); Red Blood Count 4.24 10^6 /uL (3.70-4.87); Red Cell Distribution Width 13 % (10-15); White Blood Count 10.1 10^3/uL (3.5-10.8)
[2023-01-05 06:11] LABS: INR 1.77 (0.88-1.18)
[2023-01-05 06:38] LABS: Calcium 9.4 mg/dL (8.6-10.3); Creatinine, Serum 0.85 mg/dL (0.51-0.95); Potassium 4.6 mmol/L (3.5-5.0); eGFR CKD-EPI 66.3 (>60)
[2023-01-05 06:48] LABS: TSH Ultra Thyroid Stim Horm 3.28 mcIU/mL (0.34-5.60)
[2023-01-05 07:03] LABS: Vitamin D Total 25(OH) 51.8 ng/mL (20-50)
[2023-01-05] MEDS: Potassium Chlor 10 meq TAB PO SCH (08:09)
[2023-01-05] MEDS ORDERED: Cholecalciferol (VIT D3) 1,000 unit TAB PO SCH (09:00)
[2023-01-05] MEDS ORDERED: Warfarin DAILY REMINDER **NOTE FOLLOW UP SCH (17:00)
[2023-01-05] MEDS ORDERED: Albuterol HFA INHALER 8 gm MDI INH SCH (23:27)
[2023-01-06] MEDS: Albuterol HFA INHALER 8 gm MDI INH SCH ×3 (03:02→13:32)
[2023-01-06 06:11] LABS: INR 1.9 (0.88-1.18)
[2023-01-06] MEDS: Potassium Chlor 10 meq TAB PO SCH (10:05)
[2023-01-06 12:14] VITALS: BP 107/72
== END 2023-01-06 13:50 ==
LOC: ED 08:57 → EDHOLD 08:57 → SUATTDRO 17:35 → EDHOLD 01-05 15:44 → MEDTELE 01-05 16:00
PROVIDERS: ADMIT Internal Medicine; ATTEND Internal Medicine

== ENCOUNTER 2023-10-18 12:41 | Inpatient (IN) ==
[2023-10-18 13:23] LABS: INR 2.5 (0.83-1.13)
[2023-10-18 13:26] LABS: ABS Basophils 0.1 10^3/uL (0.0-0.1); ABS Lymphocytes 1.5 10^3/uL (1.0-4.8); ABS Monocytes 0.4 10^3/uL (0.0-0.9); ABS Neutrophils 5.5 10^3/uL (1.5-7.6); Eosinophil % 0.6 %; Hematocrit 38.6 % (35-45); Hemoglobin 12.8 g/dL (11.5-14.3); Lymphocyte % 19.2 %; Mean Corpuscular Hemoglobin 31.4 pg (27-33); Mean Corpuscular Hgb Conc 33.2 g/dL (31-36); Mean Corpuscular Volume 94.7 fL (80-97); Mean Platelet Volume 11.4 fL (7.5-11.2); Platelet Count 142 10^3/uL (150-450); Red Blood Count 4.08 10^6/uL (3.63-4.92); Red Cell Distribution Width 14.5 % (12-17); White Blood Count 7.5 10^3/uL (3.8-11.8)
[2023-10-18 13:49] LABS: Albumin/Globulin Ratio 1.1 (1-3); Calcium 9.5 mg/dL (8.6-10.3); Creatinine, Serum 0.88 mg/dL (0.51-0.95); Globulin 3.6 g/dL (2-4); Magnesium 2.1 mg/dL (1.9-2.7); Potassium 3.9 mmol/L (3.5-5.0); Total Protein 7.6 g/dL (6.4-8.9); eGFR CKD-EPI 63.2 (>60)
[2023-10-18 14:51] LABS: High Sensitivity Troponin 1 Hr 12 pg/mL (<15)
[2023-10-18] MEDS ORDERED: Remdesivir 100 mg Vial 200 MG in NS 0.9% 250 ml 210 ML IV ONE (16:42)
[2023-10-18] MEDS ORDERED: Warfarin per PHARMACY **NOTE FOLLOW UP SCH (17:00)
[2023-10-18] MEDS ORDERED: Metoprolol Tartrate 5 mg VIAL 5 ml VIAL (1 mg/ml) IV PRN (17:06)
[2023-10-18] MEDS: Dexamethasone IV 4 MG/ML VIAL 1 ml VIAL IV SLOW PU SCH (17:55)
[2023-10-19] MEDS ORDERED: Metoprolol Tartrate 5 mg VIAL 5 ml VIAL (1 mg/ml) IV ONE (00:07)
[2023-10-19 07:06] LABS: Platelet Count 126 10^3/uL (150-450)
[2023-10-19 07:15] LABS: INR 2.72 (0.83-1.13)
[2023-10-19 07:25] LABS: Albumin 3.9 g/dL (3.2-5.2); Albumin/Globulin Ratio 1.1 (1-3); Calcium 9.2 mg/dL (8.6-10.3); Creatinine, Serum 0.88 mg/dL (0.51-0.95); Globulin 3.5 g/dL (2-4); Hematocrit 37.7 % (35-45); Hemoglobin 12.6 g/dL (11.5-14.3); Mean Platelet Volume 11.8 fL (7.5-11.2); Potassium 4.5 mmol/L (3.5-5.0); Total Bilirubin 0.8 mg/dL (0.2-1.0); Total Protein 7.4 g/dL (6.4-8.9); eGFR CKD-EPI 63.2 (>60)
[2023-10-19] MEDS: Dexamethasone IV 4 MG/ML VIAL 1 ml VIAL IV SLOW PU SCH (08:57)
[2023-10-19] MEDS: Warfarin DAILY REMINDER **NOTE FOLLOW UP SCH (17:59)
[2023-10-19] MEDS: Remdesivir 100 mg Vial 100 MG in NS 0.9% 250 ml 230 ML IV SCH (21:08)
[2023-10-20 06:58] LABS: Platelet Count 121 10^3/uL (150-450)
[2023-10-20 07:06] LABS: INR 4.62 (0.83-1.13)
[2023-10-20 07:17] LABS: Albumin 3.6 g/dL (3.2-5.2); Albumin/Globulin Ratio 1.1 (1-3); Calcium 8.9 mg/dL (8.6-10.3); Creatinine, Serum 0.86 mg/dL (0.51-0.95); Globulin 3.2 g/dL (2-4); Potassium 4.1 mmol/L (3.5-5.0); Total Bilirubin 0.7 mg/dL (0.2-1.0); Total Protein 6.8 g/dL (6.4-8.9); eGFR CKD-EPI 64.9 (>60)
[2023-10-20 08:16] LABS: Mean Platelet Volume 12.1 fL (7.5-11.2)
[2023-10-20] MEDS: Dexamethasone IV 4 MG/ML VIAL 1 ml VIAL IV SLOW PU SCH (08:35)
[2023-10-20 09:56] LABS: Mean Corpuscular Hemoglobin 31.3 pg (27-33); Mean Corpuscular Hgb Conc 33.3 g/dL (31-36); Mean Corpuscular Volume 93.8 fL (80-97); Red Blood Count 4.02 10^6/uL (3.63-4.92); Red Cell Distribution Width 14.3 % (12-17); White Blood Count 7.6 10^3/uL (3.8-11.8)
[2023-10-20] MEDS: Albuterol/Ipratropium NEB.SOL (2.5/0.5 MG) 3 ML NEB.SOLN INH PRN ×2 (16:48→23:00)
[2023-10-20] MEDS ORDERED: Warfarin - No Order Today **NOTE FOLLOW UP ONE (17:00)
[2023-10-20] MEDS: Remdesivir 100 mg Vial 100 MG in NS 0.9% 250 ml 230 ML IV SCH (20:12)
[2023-10-21] MEDS: Dexamethasone IV 4 MG/ML VIAL 1 ml VIAL IV SLOW PU SCH (12:06)
[2023-10-21 16:54] LABS: Hematocrit 36.8 % (35-45); Hemoglobin 12.1 g/dL (11.5-14.3); Mean Corpuscular Hemoglobin 30.9 pg (27-33); Mean Corpuscular Hgb Conc 32.8 g/dL (31-36); Mean Corpuscular Volume 94.3 fL (80-97); Mean Platelet Volume 11.5 fL (7.5-11.2); Platelet Count 116 10^3/uL (150-450); Red Cell Distribution Width 14.8 % (12-17)
[2023-10-21 17:10] LABS: Albumin 3.6 g/dL (3.2-5.2); Albumin/Globulin Ratio 1.1 (1-3); Creatinine, Serum 0.82 mg/dL (0.51-0.95); Globulin 3.2 g/dL (2-4); Potassium 4.3 mmol/L (3.5-5.0); Total Bilirubin 0.7 mg/dL (0.2-1.0); Total Protein 6.8 g/dL (6.4-8.9); eGFR CKD-EPI 68.8 (>60)
[2023-10-21 17:19] LABS: INR 4.14 (0.83-1.13)
[2023-10-21] MEDS: Remdesivir 100 mg Vial 100 MG in NS 0.9% 250 ml 230 ML IV SCH (20:27)
[2023-10-21] MEDS: Warfarin DAILY REMINDER **NOTE FOLLOW UP SCH ×2 (23:13→23:14)
[2023-10-22 07:04] LABS: INR 3.3 (0.83-1.13)
[2023-10-22 07:15] LABS: Albumin 3.5 g/dL (3.2-5.2); Albumin/Globulin Ratio 1.1 (1-3); Calcium 8.6 mg/dL (8.6-10.3); Creatinine, Serum 0.81 mg/dL (0.51-0.95); Globulin 3.2 g/dL (2-4); Potassium 4.2 mmol/L (3.5-5.0); Total Bilirubin 0.8 mg/dL (0.2-1.0); Total Protein 6.7 g/dL (6.4-8.9); eGFR CKD-EPI 69.8 (>60)
[2023-10-22] MEDS: Dexamethasone IV 4 MG/ML VIAL 1 ml VIAL IV SLOW PU SCH (10:29)
[2023-10-22 10:32] LABS: Hematocrit 36.6 % (35-45); Hemoglobin 12.2 g/dL (11.5-14.3); Mean Corpuscular Hemoglobin 31.4 pg (27-33); Mean Corpuscular Hgb Conc 33.4 g/dL (31-36); Mean Platelet Volume 12.4 fL (7.5-11.2); Platelet Count 126 10^3/uL (150-450); White Blood Count 9.6 10^3/uL (3.8-11.8)
[2023-10-22] MEDS ORDERED: Warfarin - No Order Today **NOTE FOLLOW UP ONE (17:00)
[2023-10-22] MEDS: Albuterol/Ipratropium NEB.SOL (2.5/0.5 MG) 3 ML NEB.SOLN INH PRN (19:18)
[2023-10-22] MEDS: Remdesivir 100 mg Vial 100 MG in NS 0.9% 250 ml 230 ML IV SCH (21:14)
[2023-10-22] MEDS: Warfarin DAILY REMINDER **NOTE FOLLOW UP SCH (21:52)
[2023-10-23] MEDS ORDERED: Senna TAB 8.6 mg TAB PO PRN (00:44)
[2023-10-23 08:57] LABS: INR 2.37 (0.83-1.13)
[2023-10-23 09:11] LABS: Albumin 3.6 g/dL (3.2-5.2); Albumin/Globulin Ratio 1.1 (1-3); Calcium 8.8 mg/dL (8.6-10.3); Creatinine, Serum 0.91 mg/dL (0.51-0.95); Globulin 3.2 g/dL (2-4); Potassium 4.2 mmol/L (3.5-5.0); Total Bilirubin 0.9 mg/dL (0.2-1.0); Total Protein 6.8 g/dL (6.4-8.9); eGFR CKD-EPI 60.7 (>60)
[2023-10-23] MEDS: Dexamethasone IV 4 MG/ML VIAL 1 ml VIAL IV SLOW PU SCH (09:18)
[2023-10-23] MEDS: Albuterol/Ipratropium NEB.SOL (2.5/0.5 MG) 3 ML NEB.SOLN INH PRN (15:30)
[2023-10-23] MEDS: Polyethylene Glycol 3350 17 GM PACKET PO PRN (17:46)
[2023-10-23] MEDS: Warfarin DAILY REMINDER **NOTE FOLLOW UP SCH (19:00)
[2023-10-24 06:41] LABS: Hematocrit 40.6 % (35-45); Hemoglobin 13.5 g/dL (11.5-14.3); Mean Corpuscular Hemoglobin 31.2 pg (27-33); Mean Corpuscular Hgb Conc 33.2 g/dL (31-36); Mean Platelet Volume 11.2 fL (7.5-11.2); Platelet Count 133 10^3/uL (150-450); Red Blood Count 4.32 10^6/uL (3.63-4.92); Red Cell Distribution Width 14.7 % (12-17); White Blood Count 9.8 10^3/uL (3.8-11.8)
[2023-10-24 06:58] LABS: INR 2.01 (0.83-1.13)
[2023-10-24 07:03] LABS: Calcium 8.7 mg/dL (8.6-10.3); Creatinine, Serum 0.79 mg/dL (0.51-0.95); eGFR CKD-EPI 71.9 (>60)
[2023-10-24] MEDS: Dexamethasone IV 4 MG/ML VIAL 1 ml VIAL IV SLOW PU SCH (08:43)
[2023-10-24] MEDS: Warfarin DAILY REMINDER **NOTE FOLLOW UP SCH (17:32)
[2023-10-25 08:13] LABS: INR 1.69 (0.83-1.13)
[2023-10-25] MEDS: Dexamethasone IV 4 MG/ML VIAL 1 ml VIAL IV SLOW PU SCH (09:21)
[2023-10-25] MEDS: Polyethylene Glycol 3350 17 GM PACKET PO PRN (09:22)
[2023-10-25 12:04] VITALS: BP 118/60
== END 2023-10-25 13:55 | DRG 177 ==
LOC: ED 12:41 → EDHOLD 12:41 → SUATTDRO 15:44 → MEDTELE 21:09
PROVIDERS: ADMIT Hospitalist; ATTEND Student in an Organized Health Care Education/Training Program

== ENCOUNTER 2023-11-12 12:49 | Inpatient (IN) ==
[2023-11-12 13:40] LABS: ABS Eosinophils 0.1 10^3/uL (0.0-0.5); ABS Lymphocytes 1.2 10^3/uL (1.0-4.8); ABS Monocytes 0.3 10^3/uL (0.0-0.9); ABS Neutrophils 4.8 10^3/uL (1.5-7.6); ABS Nucleated RBC 0.01 10^3/ul; Eosinophil % 1.9 %; Hematocrit 38.5 % (35-45); Hemoglobin 12.9 g/dL (11.5-14.3); Mean Corpuscular Hemoglobin 31.6 pg (27-33); Mean Corpuscular Hgb Conc 33.4 g/dL (31-36); Mean Corpuscular Volume 94.5 fL (80-97); Mean Platelet Volume 10.5 fL (7.5-11.2); Nucleated Red Blood Cells % 0.1 %/100WBC (0.0-0.8); Platelet Count 111 10^3/uL (150-450); Red Blood Count 4.07 10^6/uL (3.63-4.92); Red Cell Distribution Width 16.3 % (12-17); White Blood Count 6.6 10^3/uL (3.8-11.8)
[2023-11-12 13:54] LABS: INR 2.32 (0.83-1.13)
[2023-11-12 14:05] LABS: High Sens Troponin Baseline 13 pg/mL (<15)
[2023-11-12 14:11] LABS: ALT 19 U/L (7-52); Albumin 3.5 g/dL (3.2-5.2); Albumin/Globulin Ratio 1.1 (1-3); Alkaline Phosphatase 98 U/L (35-149); Anion Gap 9 mmol/L (2-16); Blood Urea Nitrogen 18 mg/dL (6-24); CO2 Carbon Dioxide 22 mmol/L (22-32); Calcium 8.9 mg/dL (8.6-10.3); Chloride 106 mmol/L (101-111); Creatinine, Serum 0.81 mg/dL (0.51-0.95); Globulin 3.1 g/dL (2-4); Glucose 80 mg/dL (70-100); Sodium 137 mmol/L (135-145); Total Protein 6.6 g/dL (6.4-8.9); eGFR CKD-EPI 69.8 (>60)
[2023-11-12] MEDS: NS 0.9% 500 ml BAG 500 ML IV ONE (14:36)
[2023-11-12 15:21] LABS: High Sensitivity Troponin 1 Hr 14 pg/mL (<15)
[2023-11-12] MEDS ORDERED: Furosemide 40 mg/4 ml IV VIAL IV SLOW PU ONE (15:43)
[2023-11-12] MEDS: Furosemide 40 mg/4 ml IV VIAL IV SLOW PU ONE (15:59)
[2023-11-12] MEDS ORDERED: Polyethylene Glycol 3350 17 GM PACKET PO PRN (16:54)
[2023-11-12] MEDS: Furosemide 40 mg/4 ml IV VIAL IV SLOW PU SCH (21:24)
[2023-11-13] MEDS ORDERED: Warfarin per PHARMACY **NOTE FOLLOW UP SCH (08:00)
[2023-11-13 09:47] LABS: INR 2.32 (0.83-1.13)
[2023-11-13 10:00] LABS: ABS Eosinophils 0.2 10^3/uL (0.0-0.5); ABS Lymphocytes 1.3 10^3/uL (1.0-4.8); ABS Monocytes 0.4 10^3/uL (0.0-0.9); ABS Neutrophils 4.2 10^3/uL (1.5-7.6); ABS Nucleated RBC 0.01 10^3/ul; Calcium 9.2 mg/dL (8.6-10.3); Hematocrit 44.4 % (35-45); Hemoglobin 14.9 g/dL (11.5-14.3); Lymphocyte % 21.2 %; Mean Corpuscular Hemoglobin 31.6 pg (27-33); Mean Corpuscular Hgb Conc 33.7 g/dL (31-36); Mean Corpuscular Volume 93.9 fL (80-97); Mean Platelet Volume 10.2 fL (7.5-11.2); Nucleated Red Blood Cells % 0.2 %/100WBC (0.0-0.8); Platelet Count 139 10^3/uL (150-450); Potassium 3.5 mmol/L (3.5-5.0); Red Blood Count 4.73 10^6/uL (3.63-4.92); Red Cell Distribution Width 16.5 % (12-17); White Blood Count 6.2 10^3/uL (3.8-11.8); eGFR CKD-EPI 54.2 (>60)
[2023-11-13] MEDS: Potassium Chlor 20 meq TAB.ER PO ONE (12:17)
[2023-11-13] MEDS: Furosemide 40 mg/4 ml IV VIAL IV SLOW PU ONE (18:57)
[2023-11-13] MEDS: Warfarin DAILY REMINDER **NOTE FOLLOW UP SCH (21:47)
[2023-11-14 12:31] LABS: ABS Eosinophils 0.2 10^3/uL (0.0-0.5); ABS Lymphocytes 1.1 10^3/uL (1.0-4.8); ABS Monocytes 0.4 10^3/uL (0.0-0.9); ABS Neutrophils 4.2 10^3/uL (1.5-7.6); ABS Nucleated RBC 0.01 10^3/ul; Eosinophil % 3.2 %; Hematocrit 41.1 % (35-45); Hemoglobin 13.7 g/dL (11.5-14.3); Mean Corpuscular Hemoglobin 31.4 pg (27-33); Mean Corpuscular Hgb Conc 33.4 g/dL (31-36); Mean Corpuscular Volume 94.2 fL (80-97); Mean Platelet Volume 10.4 fL (7.5-11.2); Nucleated Red Blood Cells % 0.1 %/100WBC (0.0-0.8); Platelet Count 147 10^3/uL (150-450); Red Blood Count 4.36 10^6/uL (3.63-4.92); Red Cell Distribution Width 15.7 % (12-17)
[2023-11-14 12:38] LABS: INR 2.5 (0.83-1.13)
[2023-11-14 13:34] LABS: Anion Gap 7 mmol/L (2-16); Blood Urea Nitrogen 24 mg/dL (6-24); CO2 Carbon Dioxide 29 mmol/L (22-32); Chloride 101 mmol/L (101-111); Creatinine, Serum 1.01 mg/dL (0.51-0.95); Glucose 162 mg/dL (70-100); Potassium 3.8 mmol/L (3.5-5.0); Sodium 137 mmol/L (135-145); eGFR CKD-EPI 53.5 (>60)
[2023-11-15 06:23] LABS: ABS Eosinophils 0.4 10^3/uL (0.0-0.5); ABS Lymphocytes 1.6 10^3/uL (1.0-4.8); ABS Monocytes 0.7 10^3/uL (0.0-0.9); ABS Neutrophils 5.4 10^3/uL (1.5-7.6); ABS Nucleated RBC 0.01 10^3/ul; Eosinophil % 4.4 %; Hematocrit 39.9 % (35-45); Hemoglobin 13.3 g/dL (11.5-14.3); Lymphocyte % 19.9 %; Mean Corpuscular Hemoglobin 31.2 pg (27-33); Mean Corpuscular Hgb Conc 33.4 g/dL (31-36); Mean Corpuscular Volume 93.2 fL (80-97); Mean Platelet Volume 10.3 fL (7.5-11.2); Nucleated Red Blood Cells % 0.1 %/100WBC (0.0-0.8); Platelet Count 141 10^3/uL (150-450); Red Blood Count 4.28 10^6/uL (3.63-4.92); Red Cell Distribution Width 16.1 % (12-17)
[2023-11-15 06:33] LABS: INR 2.93 (0.83-1.13)
[2023-11-15 06:39] LABS: Creatinine, Serum 0.9 mg/dL (0.51-0.95); Magnesium 1.8 mg/dL (1.9-2.7); Potassium 3.7 mmol/L (3.5-5.0); eGFR CKD-EPI 61.5 (>60)
[2023-11-15 11:29] VITALS: BP 80/61
== END 2023-11-15 13:55 | DRG 291 ==
LOC: ED 12:49 → EDHOLD 12:49 → MEDTELE 22:28 → SUATTDRO 11-14 11:54
PROVIDERS: ADMIT Internal Medicine; ATTEND Student in an Organized Health Care Education/Training Program

== ENCOUNTER 2023-11-28 11:18 | Inpatient (IN) ==
[2023-11-28 12:11] LABS: ABS Eosinophils 0.3 10^3/uL (0.0-0.5); ABS Lymphocytes 2.1 10^3/uL (1.0-4.8); ABS Monocytes 0.5 10^3/uL (0.0-0.9); ABS Neutrophils 3.9 10^3/uL (1.5-7.6); ABS Nucleated RBC 0.01 10^3/ul; Eosinophil % 4.2 %; Hematocrit 44.8 % (35-45); Hemoglobin 14.8 g/dL (11.5-14.3); Lymphocyte % 30.1 %; Mean Corpuscular Hemoglobin 31.2 pg (27-33); Mean Corpuscular Volume 94.7 fL (80-97); Nucleated Red Blood Cells % 0.1 %/100WBC (0.0-0.8); Platelet Count 147 10^3/uL (150-450); Red Blood Count 4.74 10^6/uL (3.63-4.92); Red Cell Distribution Width 16.1 % (12-17); White Blood Count 6.8 10^3/uL (3.8-11.8)
[2023-11-28 12:20] LABS: Albumin 3.4 g/dL (3.2-5.2); Albumin/Globulin Ratio 1.1 (1-3); Calcium 9.5 mg/dL (8.6-10.3); Creatinine, Serum 1.08 mg/dL (0.51-0.95); Globulin 3.1 g/dL (2-4); Magnesium 2.2 mg/dL (1.9-2.7); Potassium 3.9 mmol/L (3.5-5.0); Total Bilirubin 0.5 mg/dL (0.2-1.0); Total Protein 6.5 g/dL (6.4-8.9); eGFR CKD-EPI 49.4 (>60)
[2023-11-28 12:22] LABS: INR 1.92 (0.83-1.13)
[2023-11-28] MEDS ORDERED: Lactated Ringers 1000 ml BAG 1,000 ML IV ONE (12:39)
[2023-11-28 13:09] LABS: TSH Ultra Thyroid Stim Horm 70.11 mcIU/mL (0.34-5.60)
[2023-11-28 13:33] LABS: High Sensitivity Troponin 1 Hr 9 pg/mL (<15)
[2023-11-28 16:30] LABS: Urine Appearance Clear; Urine Bilirubin Negative (Negative); Urine Blood Negative (Negative); Urine Color Yellow; Urine Glucose 1+(50 mg/dL) (Negative); Urine Ketones Negative (Negative); Urine Nitrite Negative (Negative); Urine Protein Negative (Negative); Urine Specific Gravity 1.012 (1.002-1.030); Urine Urobilinogen Negative (Negative)
[2023-11-28] MEDS ORDERED: Haloperidol 5 mg/ml SDV IV/IM 5 MG/ML AMP IV SLOW PU ONE (16:35)
[2023-11-28] MEDS ORDERED: Haloperidol 5 mg/ml SDV IV/IM 5 MG/ML AMP IM ONE (17:00)
[2023-11-28] MEDS ORDERED: NS 0.9% 500 ml BAG 500 ML IV ONE (18:02)
[2023-11-28] MEDS ORDERED: Digoxin IV 0.5 MG/2 ML AMP (0.25 MG/ML) IV SLOW PU ONE (18:03)
[2023-11-28] MEDS ORDERED: Albuterol HFA INHALER 8 gm MDI INH PRN (20:17)
[2023-11-28 20:32] LABS: C Reactive Protein 5.86 mg/L (<8.01)
[2023-11-28 20:54] LABS: Free T4 0.64 ng/dL (0.61-1.12)
[2023-11-28] MEDS ORDERED: Warfarin per PHARMACY **NOTE FOLLOW UP SCH (22:00)
[2023-11-29 06:38] LABS: ABS Eosinophils 0.2 10^3/uL (0.0-0.5); ABS Monocytes 0.5 10^3/uL (0.0-0.9); ABS Neutrophils 4.9 10^3/uL (1.5-7.6); ABS Nucleated RBC 0.01 10^3/ul; Eosinophil % 3.2 %; Hematocrit 42.7 % (35-45); Hemoglobin 14.3 g/dL (11.5-14.3); Lymphocyte % 25.7 %; Mean Corpuscular Hemoglobin 31.5 pg (27-33); Mean Corpuscular Hgb Conc 33.4 g/dL (31-36); Mean Corpuscular Volume 94.3 fL (80-97); Nucleated Red Blood Cells % 0.2 %/100WBC (0.0-0.8); Platelet Count 119 10^3/uL (150-450); Red Blood Count 4.53 10^6/uL (3.63-4.92); Red Cell Distribution Width 16.1 % (12-17); White Blood Count 7.6 10^3/uL (3.8-11.8)
[2023-11-29 06:44] LABS: INR 1.88 (0.83-1.13)
[2023-11-29 06:54] LABS: Calcium 9.2 mg/dL (8.6-10.3); Creatinine, Serum 0.96 mg/dL (0.51-0.95); Potassium 4.3 mmol/L (3.5-5.0); eGFR CKD-EPI 56.9 (>60)
[2023-11-29 07:57] LABS: Magnesium 1.9 mg/dL (1.9-2.7)
[2023-11-29 13:45] LABS: Ferritin 100.9 ng/mL (11-307)
[2023-11-29] MEDS ORDERED: Haloperidol 5 mg/ml SDV IV/IM 5 MG/ML AMP IV SLOW PU PRN (16:31)
[2023-11-29] MEDS ORDERED: Warfarin DAILY REMINDER **NOTE FOLLOW UP SCH (17:00)
[2023-11-30 07:03] LABS: Calcium 8.9 mg/dL (8.6-10.3); Creatinine, Serum 0.88 mg/dL (0.51-0.95); INR 1.68 (0.83-1.13); Magnesium 1.9 mg/dL (1.9-2.7); Potassium 4.2 mmol/L (3.5-5.0); eGFR CKD-EPI 63.2 (>60)
[2023-11-30] MEDS ORDERED: Magnesium Sulfate IV 1GM/100ML 1 GM/100 ML BAG IV ONE (08:00)
[2023-11-30 10:00] VITALS: BP 103/59
[2023-11-30] MEDS: Enoxaparin 60 MG/0.6 ML SYR SUBCUT SCH ×2 (11:49→13:35)
== END 2023-11-30 13:30 | DRG 309 ==
LOC: ED 11:18 → SUATTDRO 19:02 → EDHOLD 19:02 → MEDTELE 20:41
PROVIDERS: ADMIT Internal Medicine; ATTEND Hospitalist

== ENCOUNTER 2024-02-08 01:25 | Observation (INO) ==
[2024-02-08 01:56] LABS: ABS Basophils 0.1 10^3/uL (0.0-0.1); ABS Eosinophils 0.4 10^3/uL (0.0-0.5); ABS Lymphocytes 2.1 10^3/uL (1.0-4.8); ABS Monocytes 0.6 10^3/uL (0.0-0.9); ABS Nucleated RBC 0.01 10^3/ul; Eosinophil % 5.2 %; Hematocrit 31.9 % (35-45); Hemoglobin 10.8 g/dL (11.5-14.3); Lymphocyte % 30.1 %; Mean Corpuscular Hemoglobin 32.5 pg (27-33); Mean Corpuscular Hgb Conc 33.7 g/dL (31-36); Mean Corpuscular Volume 96.3 fL (80-97); Mean Platelet Volume 9.3 fL (7.5-11.2); Nucleated Red Blood Cells % 0.1 %/100WBC (0.0-0.8); Platelet Count 188 10^3/uL (150-450); Red Blood Count 3.32 10^6/uL (3.63-4.92); Red Cell Distribution Width 14.7 % (12-17); White Blood Count 7.1 10^3/uL (3.8-11.8)
[2024-02-08 02:25] LABS: Albumin 3.4 g/dL (3.2-5.2); Albumin/Globulin Ratio 1.2 (1-3); Calcium 8.9 mg/dL (8.6-10.3); Creatinine, Serum 0.72 mg/dL (0.51-0.95); Globulin 2.9 g/dL (2-4); Magnesium 1.9 mg/dL (1.9-2.7); Potassium 4.1 mmol/L (3.5-5.0); Total Bilirubin 0.6 mg/dL (0.2-1.0); Total Protein 6.3 g/dL (6.4-8.9); eGFR CKD-EPI 80.4 (>60)
[2024-02-08 03:32] LABS: High Sensitivity Troponin 1 Hr 17 pg/mL (<15)
[2024-02-08 03:48] LABS: Urine Appearance Clear; Urine Bilirubin Negative (Negative); Urine Blood Negative (Negative); Urine Color Light-Yellow; Urine Glucose Negative (Negative); Urine Ketones Negative (Negative); Urine Nitrite Negative (Negative); Urine Protein Negative (Negative); Urine Specific Gravity 1.014 (1.002-1.030); Urine Urobilinogen Negative (Negative); Urine pH 6.5 (5.0-8.0)
[2024-02-08] MEDS ORDERED: Warfarin per PHARMACY **NOTE FOLLOW UP SCH (07:00)
[2024-02-08 07:12] LABS: ABS Eosinophils 0.4 10^3/uL (0.0-0.5); ABS Monocytes 0.6 10^3/uL (0.0-0.9); ABS Neutrophils 4.5 10^3/uL (1.5-7.6); Eosinophil % 5.6 %; Hematocrit 33.2 % (35-45); Hemoglobin 11.2 g/dL (11.5-14.3); Lymphocyte % 26.6 %; Mean Corpuscular Hemoglobin 32.5 pg (27-33); Mean Corpuscular Hgb Conc 33.6 g/dL (31-36); Mean Corpuscular Volume 96.9 fL (80-97); Nucleated Red Blood Cells % 0.1 %/100WBC (0.0-0.8); Platelet Count 182 10^3/uL (150-450); Red Blood Count 3.43 10^6/uL (3.63-4.92); Red Cell Distribution Width 14.5 % (12-17); White Blood Count 7.5 10^3/uL (3.8-11.8)
[2024-02-08 07:32] LABS: Anion Gap 8 mmol/L (2-16); Blood Urea Nitrogen 22 mg/dL (6-24); CO2 Carbon Dioxide 28 mmol/L (22-32); Calcium 8.5 mg/dL (8.6-10.3); Chloride 102 mmol/L (101-111); Creatinine, Serum 0.65 mg/dL (0.51-0.95); Glucose 91 mg/dL (70-100); Magnesium 1.9 mg/dL (1.9-2.7); Sodium 138 mmol/L (135-145); eGFR CKD-EPI 84.6 (>60)
[2024-02-08 08:45] LABS: INR 3.17 (0.83-1.13)
[2024-02-08 11:10] LABS: TSH Ultra Thyroid Stim Horm 10.76 mcIU/mL (0.34-5.60)
[2024-02-08 11:22] LABS: Vitamin B12 856 pg/mL (180-914)
[2024-02-09 07:31] LABS: Hematocrit 35.8 % (35-45); Hemoglobin 11.9 g/dL (11.5-14.3); Mean Corpuscular Hemoglobin 32.3 pg (27-33); Mean Corpuscular Hgb Conc 33.2 g/dL (31-36); Mean Corpuscular Volume 97.4 fL (80-97); Mean Platelet Volume 9.3 fL (7.5-11.2); Platelet Count 194 10^3/uL (150-450); Red Blood Count 3.67 10^6/uL (3.63-4.92); Red Cell Distribution Width 14.8 % (12-17)
[2024-02-09 07:36] LABS: INR 2.65 (0.83-1.13)
[2024-02-09 07:49] LABS: Creatinine, Serum 0.62 mg/dL (0.51-0.95); Potassium 4.2 mmol/L (3.5-5.0); eGFR CKD-EPI 85.6 (>60)
[2024-02-09 13:45] VITALS: BP 123/67
== END 2024-02-09 16:00 ==
LOC: EDHOLD 01:25 → ED 01:25 → SUATTDRO 03:10 → MEDTELE 09:30
PROVIDERS: ADMIT Internal Medicine; ATTEND Internal Medicine

== ENCOUNTER 2024-02-14 20:52 | Observation (INO) ==
[2024-02-14 21:52] LABS: ABS Eosinophils 0.2 10^3/uL (0.0-0.5); ABS Lymphocytes 1.9 10^3/uL (1.0-4.8); ABS Monocytes 0.6 10^3/uL (0.0-0.9); ABS Neutrophils 6.5 10^3/uL (1.5-7.6); Eosinophil % 2.3 %; Hemoglobin 11.1 g/dL (11.5-14.3); Lymphocyte % 20.7 %; Mean Corpuscular Hemoglobin 32.8 pg (27-33); Mean Corpuscular Hgb Conc 33.6 g/dL (31-36); Mean Corpuscular Volume 97.4 fL (80-97); Mean Platelet Volume 9.6 fL (7.5-11.2); Platelet Count 218 10^3/uL (150-450); Red Blood Count 3.39 10^6/uL (3.63-4.92); Red Cell Distribution Width 14.9 % (12-17); White Blood Count 9.3 10^3/uL (3.8-11.8)
[2024-02-14 22:04] LABS: INR 1.78 (0.83-1.13)
[2024-02-14 22:42] LABS: Albumin 3.8 g/dL (3.2-5.2); Albumin/Globulin Ratio 1.2 (1-3); Calcium 8.9 mg/dL (8.6-10.3); Creatinine, Serum 0.83 mg/dL (0.51-0.95); Digoxin 1.1 ng/ml (0.8-2.0); Globulin 3.1 g/dL (2-4); Magnesium 1.8 mg/dL (1.9-2.7); Potassium 3.8 mmol/L (3.5-5.0); Total Bilirubin 0.6 mg/dL (0.2-1.0); Total Protein 6.9 g/dL (6.4-8.9); eGFR CKD-EPI 67.8 (>60)
[2024-02-14 23:06] LABS: High Sensitivity Troponin 1 Hr 13 pg/mL (<15)
[2024-02-14 23:44] LABS: TSH Ultra Thyroid Stim Horm 9.47 mcIU/mL (0.34-5.60)
[2024-02-15 00:12] LABS: Urine Appearance Clear; Urine Bilirubin Negative (Negative); Urine Blood Negative (Negative); Urine Color Light-Yellow; Urine Glucose Negative (Negative); Urine Ketones Negative (Negative); Urine Nitrite 1+ (Negative); Urine Protein Negative (Negative); Urine Specific Gravity 1.009 (1.002-1.030); Urine Urobilinogen Negative (Negative); Urine pH 5.5 (5.0-8.0)
[2024-02-15 00:39] LABS: Urine Bacteria 1+ /HPF (Absent); Urine Red Blood Cell Trace(0-2/hpf) /HPF (0-Trace); Urine Squamous Epithelial Cell Present /HPF (Absent); Urine White Blood Cell 1+(6-10/hpf) /HPF (0-Trace)
[2024-02-15 01:34] LABS: C Reactive Protein 9.47 mg/L (<8.01)
[2024-02-15] MEDS: cefTRIAXone 1 gm/50 mL D5W 1 GM/50 ML BAG IV ONE (02:30)
[2024-02-15] MEDS: Magnesium Sulfate 2 gm BAG 2 GM/50 ML BAG IVPB ONE (03:38)
[2024-02-15] MEDS ORDERED: Warfarin per PHARMACY **NOTE FOLLOW UP SCH (05:00)
[2024-02-15 06:30] LABS: INR 1.8 (0.83-1.13)
[2024-02-15 06:31] LABS: Calcium 8.7 mg/dL (8.6-10.3); Creatinine, Serum 0.75 mg/dL (0.51-0.95); Potassium 4.2 mmol/L (3.5-5.0); eGFR CKD-EPI 76.5 (>60)
[2024-02-15 06:59] LABS: Hematocrit 18.7 % (35-45); Hemoglobin 6.2 g/dL (11.5-14.3); Mean Corpuscular Hemoglobin 33.1 pg (27-33); Mean Corpuscular Hgb Conc 32.9 g/dL (31-36); Mean Corpuscular Volume 100.4 fL (80-97); Mean Platelet Volume 9.3 fL (7.5-11.2); Platelet Count 111 10^3/uL (150-450); Red Blood Count 1.87 10^6/uL (3.63-4.92); Red Cell Distribution Width 15.1 % (12-17)
[2024-02-15 07:49] LABS: ABS Eosinophils 0.4 10^3/uL (0.0-0.5); ABS Lymphocytes 1.6 10^3/uL (1.0-4.8); ABS Monocytes 0.6 10^3/uL (0.0-0.9); ABS Neutrophils 6.5 10^3/uL (1.5-7.6); ABS Nucleated RBC 0.01 10^3/ul; Eosinophil % 4.2 %; Hematocrit 32.8 % (35-45); Hemoglobin 10.9 g/dL (11.5-14.3); Lymphocyte % 17.5 %; Mean Corpuscular Hemoglobin 32.2 pg (27-33); Mean Corpuscular Hgb Conc 33.1 g/dL (31-36); Mean Corpuscular Volume 97.3 fL (80-97); Mean Platelet Volume 8.9 fL (7.5-11.2); Nucleated Red Blood Cells % 0.1 %/100WBC (0.0-0.8); Platelet Count 194 10^3/uL (150-450); Red Blood Count 3.37 10^6/uL (3.63-4.92); White Blood Count 9.1 10^3/uL (3.8-11.8)
[2024-02-15] MEDS: Iodixanol (CONTRAST) 320 MG/ML 100 ML SDV IV ONE (08:46)
[2024-02-15 16:28] LABS: Folate 11.56 ng/mL (5.90-24.80)
[2024-02-16 07:15] LABS: Magnesium 2.2 mg/dL (1.9-2.7)
[2024-02-16 07:25] LABS: INR 1.79 (0.83-1.13)
[2024-02-16 07:29] LABS: TSH Ultra Thyroid Stim Horm 2.19 mcIU/mL (0.34-5.60)
[2024-02-16 11:16] VITALS: BP 121/68
[2024-02-16] MEDS ORDERED: Warfarin DAILY REMINDER **NOTE FOLLOW UP SCH (17:00)
== END 2024-02-16 13:50 ==
LOC: ED 20:52 → EDHOLD 20:52 → SUATTDRO 02-15 00:58 → MED 02-15 08:24
PROVIDERS: ADMIT Hospitalist; ATTEND Internal Medicine